=== PATIENT | female | born 1950 | race Caucasian/White ===

== ENCOUNTER → 2017-06-18 08:56 | Outpatient (CLI) | payer MEDICARE, OTHER, SELFPAY ==
--- NOTE | 2017-06-18 08:58 | BI_ITS ---
MAMMOGRAPHY - BILATERAL SCREENING REASON FOR EXAM: Female, 66 years old. Routine annual screening examination. PERTINENT HISTORY: Non-contributory. TECHNIQUE: Digital bilateral breast bita (3D mammographic acquisition) in the CC and MLO projections. 2-D mediolateral oblique (MLO) and craniocaudad (CC) views of both breasts were obtained. CAD: Full Field Digital Mammography with Computer Added Detection was performed. COMPARISON: Comparison is made with prior outside examination dated February 26, 2016. FINDINGS: Breast Composition: The breasts are heterogeneously dense, which may obscure small masses. There are no dominant masses or suspicious calcifications. No other significant abnormalities are identified. There has been no significant change since the prior study. BI/SCREENING MAMM (CAD), BILAT IMPRESSION: Stable bilateral screening mammogram. Yearly follow-up mammogram recommended. (A) ASSESSMENT CATEGORY: BIRADS Category 1: Negative. A letter regarding these results will be sent to the patient by the facility within 30 days. Approximately 10% of breast cancers are not detected by mammography. A normal mammogram should not delay biopsy of a clinically suspicious abnormality. [id number] Electronically Signed: Jonnie Reid MD at 13:39 EDT Tel [phone], Service support ,
== END ==
PROVIDERS: Family Provider Family Medicine; PCP Family Medicine; Visit Provider Nurse Practitioner Women's Health
DX: Z12.31 Encounter for screening mammogram for malignant neoplasm of breast (principal)
CPT/HCPCS: 77063; 77067

== ENCOUNTER → 2018-05-15 07:53 | Outpatient (CLI) | payer MEDICARE, OTHER, SELFPAY ==
[2018-05-12 13:08] VITALS: BMI 21.9
[2018-05-15 10:01] LABS: ALB/GLOB Ratio 1.1 RATIO (0.9-2.4); AST(SGOT) 24 U/L (15-37); Alanine Aminotransfer ALT/SGPT 27 U/L (13-56); Albumin, Serum 3.6 g/dL (3.2-5.0); Alkaline Phosphatase 87 U/L (45-117); Anion Gap 5 (5-15); BUN 14 mg/dL (7-18); BUN/Creat Ratio 21.9 RATIO (10-20); Calcium,Total 8.8 mg/dL (8.5-10.1); Chloride 107 mmol/L (98-107); Cholesterol 186 mg/dL (200); Creatinine, Serum 0.64 mg/dL (0.55-1.02); EST Glomerular Filtration Rate 99 mL/min (>60); Est Glom Filt Rate - Afr Amer 119 mL/min (>60); Globulin 3.4 g/dL (2.2-4.2); Glucose 84 mg/dL (74-106); High Density Lipoprotein 104 mg/dL; Potassium 3.7 mmol/L (3.5-5.1); Sodium Level 144 mmol/L (136-145); Thyroid Stim Hormone (TSH) 1.23 uIU/mL (0.358-3.74); Triglycerides 40 mg/dL; Very Low Density Lipoprotein 8 mg/dL (5-40)
== END ==
PROVIDERS: Family Provider Family Medicine; PCP Family Medicine; Referring Provider Nurse Practitioner Women's Health; Visit Provider Nurse Practitioner Women's Health
DX: Z00.00 Encounter for general adult medical examination without abnormal findings (principal); E78.00 Pure hypercholesterolemia, unspecified; R53.83 Other fatigue
CPT/HCPCS: 36415; 80053; 80061; 84443

== ENCOUNTER → 2018-06-21 09:56 | Outpatient (CLI) | payer MEDICARE, SELFPAY ==
[2018-05-12 13:08] VITALS: BMI 21.9
--- NOTE | 2018-06-21 09:58 | BI_ITS ---
MAMMOGRAPHY - BILATERAL SCREENING REASON FOR EXAM: Female, 67 years old. Routine annual screening examination. PERTINENT HISTORY: Non-contributory. TECHNIQUE: Digital bilateral breast jeff (3D mammographic acquisition) in the CC and MLO projections. 2-D mediolateral oblique (MLO) and craniocaudad (CC) views of both breasts were obtained. CAD: Full Field Digital Mammography with Computer Added Detection was performed. COMPARISON: Comparison is made with prior study dated June 18, 2017. FINDINGS: Breast Composition: The breasts are heterogeneously dense, which may obscure small masses. There are no dominant masses or suspicious calcifications. No other significant abnormalities are identified. There has been no significant change since the prior study. BI/SCREEN MAMM (CAD) W/JEFF BILAT IMPRESSION: Stable bilateral screening mammogram. Yearly follow-up mammogram recommended. (A) ASSESSMENT CATEGORY: BIRADS Category 1: Negative. A letter regarding these results will be sent to the patient by the facility within 30 days. Approximately 10% of breast cancers are not detected by mammography. A normal mammogram should not delay biopsy of a clinically suspicious abnormality. [id number] Electronically Signed: Jonnie Reid, at 11:31 EDT , Service support ,
== END ==
PROVIDERS: Family Provider Family Medicine; PCP Family Medicine; Referring Provider Nurse Practitioner Women's Health; Visit Provider Nurse Practitioner Women's Health
DX: Z12.31 Encounter for screening mammogram for malignant neoplasm of breast (principal)
CPT/HCPCS: 77063; 77067

== ENCOUNTER → 2019-08-01 12:36 | Outpatient (CLI) | payer MEDICARE, OTHER, SELFPAY ==
[2018-05-12 13:08] VITALS: BMI 21.9
--- NOTE | 2019-08-01 12:36 | BI_ITS ---
MAMMOGRAPHY - BILATERAL SCREENING 3-D TOMOSYNTHESIS REASON FOR EXAM: Female, 68 years old. Routine screening PERTINENT HISTORY: FAM HX MAT 1ST COUSIN AGE ? -- GAINED WEIGHT SINCE AST EXAM -- NO SX. TECHNIQUE: 2-D mammograms and 3-D Tomosynthesis of the breast (s) were performed. CAD was performed. COMPARISON: 2019 FINDINGS: The breast composition is heterogeneously dense that can obscure small breast masses. Scattered benign calcifications are seen. No dense spiculated masses or suspicious microcalcifications are identified. No architectural distortion is identified. There is no skin thickening or retraction. There has been no significant change since the prior study. BI/SCREEN MAMM (CAD) W/JEFF BILAT IMPRESSION: No mammographic signs of malignancy. Routine yearly mammograms recommended. ASSESSMENT CATEGORY: BIRADS Category 2: Benign. A letter regarding these results will be sent to the patient by the facility within 30 days. FOLLOW UP RECOMMENDATION: Yearly follow up mammogram recommended. (A) Approximately 10% of breast cancers are not detected by mammography. A normal mammogram should not delay biopsy of a clinically suspicious abnormality. Electronically Signed: Ricki Mckeon MD at 14:04 EDT , Service support ,
== END ==
PROVIDERS: PCP Family Medicine; Referring Provider Nurse Practitioner Women's Health; Visit Provider Nurse Practitioner Women's Health
DX: Z12.31 Encounter for screening mammogram for malignant neoplasm of breast (principal)
CPT/HCPCS: 77063; 77067

== ENCOUNTER 2020-04-12 17:49 | Outpatient (RCR) | payer MEDICARE, OTHER, SELFPAY ==
[2019-08-01 13:24] VITALS: BMI 21.9
[2020-04-12] MEDS: COVID-19 VACC, MRNA(PFIZER)/PF 30 MCG/0.3 ML SYRINGE IM (17:57)
[2020-05-03] MEDS: COVID-19 VACC, MRNA(PFIZER)/PF 30 MCG/0.3 ML SYRINGE IM (17:16)
== END 2020-04-12 23:59 ==
LOC: IMMUN 17:49
PROVIDERS: PCP Family Medicine; Referring Provider Family Medicine; Visit Provider Family Medicine
DX: Z23 Encounter for immunization (principal)
CPT/HCPCS: 0001A; 0002A; 91300

== ENCOUNTER → 2020-08-08 10:39 | Outpatient (CLI) | payer MEDICARE, OTHER, SELFPAY ==
[2019-08-01 13:24] VITALS: BMI 21.9
[2020-08-08 10:10] VITALS: BMI 21.9
--- NOTE | 2020-08-08 10:41 | BI_ITS ---
MAMMOGRAPHY - BILATERAL SCREENING REASON FOR EXAM: Female, 69 years old. Routine annual screening examination. PERTINENT HISTORY: Non-contributory. TECHNIQUE: Digital bilateral breast jeff (3D mammographic acquisition) in the CC and MLO projections. 2-D mediolateral oblique (MLO) and craniocaudad (CC) views of both breasts were obtained. CAD: Full Field Digital Mammography with Computer Added Detection was performed. COMPARISON: Comparison is made with prior examination dated 08/01/2019 and 06/21/2018. FINDINGS: Breast Composition: The breasts are heterogeneously dense, which may obscure small masses. There are no dominant masses or suspicious calcifications. No other significant abnormalities are identified. There has been no significant change since the prior study. BI/SCRN MAMM (CAD)W/JEFF BILAT IMPRESSION: Stable bilateral screening mammogram. Yearly follow-up mammogram recommended. (A) ASSESSMENT CATEGORY: BIRADS Category 1: Negative. A letter regarding these results will be sent to the patient by the facility within 30 days. Approximately 10% of breast cancers are not detected by mammography. A normal mammogram should not delay biopsy of a clinically suspicious abnormality. [id number] Electronically Signed: Jonnie Reid MD at 12:46 EDT , Service support ,
== END ==
PROVIDERS: PCP Family Medicine; Referring Provider Nurse Practitioner Women's Health; Visit Provider Nurse Practitioner Women's Health
DX: Z12.31 Encounter for screening mammogram for malignant neoplasm of breast (principal)
CPT/HCPCS: 77063; 77067

== ENCOUNTER → 2020-12-04 09:48 | Outpatient (CLI) | payer MEDICARE, OTHER, SELFPAY ==
--- NOTE | 2020-12-04 09:55 | BD_ITS ---
STUDY: DUAL ENERGY X-RAY ABSORPTIOMETRY / DXA REASON FOR EXAM: Female, 69 years old. [id number]. The patient is postmenopausal. TECHNIQUE: Bone Mineral Density (BMD) measurements of lumbar spine and bilateral hips were obtained. COMPARISON: None. FINDINGS: Lumbar Spine (L1-L4): g/cm2 (0.953) / T-score (-0.9) / Z-score (1.1) Findings are suggestive of normal bone density with a low fracture risk. Left Femur Total: g/cm2 (0.760) / T-score (-1.5) / Z-score (-0.1) Left Femoral Neck: g/cm2 (0.650) / T-score (-1.8) / Z-score (-0.1) Right Femur Total: g/cm2 (0.829) / T-score (-0.9) / Z-score (0.5) Right Femoral Neck: g/cm2 (0.645) / T-score (-1.8) / Z-score (-0.1) BD/Dexa Bone Density Study IMPRESSION: The patient is considered osteopenic as outlined below according to World Lobo Organization (WHO) criteria with a moderate fracture risk. Reference Information: The T-score is the number of standard deviations above or below the standard which is normal for young adults at their peak bone mineral density. The World Health Organization (WHO) interprets the T-scores as follows: Above -1 Normal bone density Between -1 and -2.5 Osteopenia Equal to / or below -2.5 Osteoporosis As a practical clinical guideline, osteopenia may be graded as follows: Mild -1 through -1.5 Moderate -1.6 through -2.0 Severe -2.1 through -2.4 The Z-score is the number of standard deviations above or below age-matched controls. A Z-score of less than -1.5 would be considered abnormal. References: 1. NIH Osteoporosis and Related Bone Diseases www osteo.org 2. International Society for Clinical Densitometry www iscd.org 3. National Osteoporosis Foundation www nof.org Electronically Signed: Jonnie Reid MD at 13:18 EDT , Service support ,
== END ==
PROVIDERS: PCP Internal Medicine; Referring Provider Internal Medicine; Visit Provider Internal Medicine
DX: Z78.0 Asymptomatic menopausal state (principal)
CPT/HCPCS: 77080

== ENCOUNTER 2021-03-06 09:55 | Outpatient (CLI) | payer MEDICARE, OTHER, SELFPAY ==
--- NOTE | 2021-03-06 09:59 | ECHOD_ITS ---
Reason For Study: Near Syncope Procedure This was a 2D Doppler, Color Flow transthoracic echocardiogram. The study was technically difficult. Exam performed in department. Left Ventricle Normal LV size. Apical false tendon noted. Left ventricular systolic function is normal. The estimated ejection fraction is 60 %. No evidence for diastolic dysfunction. No regional wall motion abnormalities noted. Right Ventricle Normal RV size. Prominent moderator band. Normal systolic function. Atria Normal left atrium. Normal right atrium. No doppler evidence for ASD. Mitral Valve There is no mitral annular calcification. Anterior leaflet diffuse mitral valve thickening. Equivocal mitral valve prolapse. Trivial mitral valve insufficiency. Tricuspid Valve Normal tricuspid valve. Mild tricuspid valve insufficiency. Right ventricular systolic pressure estimated to be 21 mmHg. Aortic Valve Trisinus/trileaflet aortic valve. Normal aortic valve. Pulmonic Valve The pulmonic valve is not well visualized. Trivial pulmonic valve insufficiency. Great Vessels Normal sized aortic root. Pericardium/Pleural No pericardial effusion. MMode/2D Measurements & Calculations LVIDd: 4.0 cm IVSd: 0.78 cm Ao root diam: 3.0 cm LVIDs: 2.6 cm LVPWd: 0.68 cm LA dimension: 2.6 cm FS: 36.0 % LAV(MOD-sp4): 17.0 ml LA A4 area: 10.5 cm2 RA A4 area: 11.7 cm2 Time Measurements MV dec time: 0.25 sec Doppler Measurements & Calculations MV E max rashaad: 57.8 cm/sec Lat Peak E' Rashaad: 10.7 cm/sec Med Peak E' Rashaad: 11.8 cm/sec MV A max rashaad: 78.9 cm/sec E/E' lat: 5.4 E/E' med: 4.9 MV E/A: 0.73 MV V2 max: 86.8 cm/sec MV P1/2t max rashaad: 87.4 cm/sec Ao V2 max: 116.8 cm/sec MV max P.0 mmHg MV P1/2t: 81.9 msec Ao max P.5 mmHg MV V2 mean: 48.9 cm/sec MV dec slope: 312.5 cm/sec2 MV mean P.1 mmHg MVA(P1/2t): 2.7 cm2 MV V2 VTI: 24.8 cm LV V1 max: 83.4 cm/sec PA V2 max: 67.9 cm/sec TR max rashaad: 214.3 cm/sec LV V1 max P.8 mmHg TR max P.4 mmHg ECHO/Echo Complete Interpretation Summary The study was technically difficult. Left ventricular systolic function is normal. The estimated ejection fraction is 60 %. Apical false tendon noted. Prominent moderator band. Anterior leaflet diffuse mitral valve thickening. Equivocal mitral valve prolapse. Trivial mitral valve insufficiency. Mild tricuspid valve insufficiency. Trivial pulmonic valve insufficiency. Right ventricular systolic pressure estimated to be 21 mmHg. No evidence for diastolic dysfunction. Ordering Physician: Brittany Dougherty Referring Physician: Brittany Dougherty Performed By: Nickolas Jay RCS
== END 2021-03-06 23:59 | disposition short-term general hospital (02) ==
LOC: CVS 09:57
PROVIDERS: PCP Internal Medicine; Referring Provider Internal Medicine; Visit Provider Internal Medicine
DX: R00.2 Palpitations (principal); R55 Syncope and collapse
CPT/HCPCS: 93225; 93226; 93306

== ENCOUNTER → 2021-08-13 | Outpatient (CLI) | payer MEDICARE, OTHER, SELFPAY ==
--- NOTE | 2021-08-13 09:11 | BI_ITS ---
MAMMOGRAPHY - BILATERAL SCREENING REASON FOR EXAM: Female, 70 years old. Routine annual screening examination. PERTINENT HISTORY: Non-contributory. TECHNIQUE: Digital bilateral breast jeff (3D mammographic acquisition) in the CC and MLO projections. 2-D mediolateral oblique (MLO) and craniocaudad (CC) views of both breasts were obtained. CAD: Full Field Digital Mammography with Computer Added Detection was performed. COMPARISON: Comparison is made with prior study dated 08/08/2020 and 08/01/2019. FINDINGS: Breast Composition: The breasts are heterogeneously dense, which may obscure small masses. There are no dominant masses or suspicious calcifications. No other significant abnormalities are identified. There has been no significant change since the prior study. BI/SCRN MAMM (CAD)W/JEFF BILAT IMPRESSION: Stable bilateral screening mammogram. Yearly follow-up mammogram recommended. (A) ASSESSMENT CATEGORY: BIRADS Category 1: Negative. A letter regarding these results will be sent to the patient by the facility within 30 days. Approximately 10% of breast cancers are not detected by mammography. A normal mammogram should not delay biopsy of a clinically suspicious abnormality. [id number] Electronically Signed: Jonnie Reid MD at 10:27 EDT ,
== END | disposition home or self-care (01) ==
LOC: OPBI 09:11
PROVIDERS: PCP Internal Medicine; Visit Provider Nurse Practitioner Women's Health
DX: Z12.31 Encounter for screening mammogram for malignant neoplasm of breast (principal)
CPT/HCPCS: 77063; 77067

== ENCOUNTER → 2022-08-18 | Outpatient (CLI) | payer MEDICARE, OTHER, SELFPAY ==
--- NOTE | 2022-08-18 07:59 | BI_ITS ---
MAMMOGRAPHY - BILATERAL SCREENING REASON FOR EXAM: Female, 71 years old. Routine annual screening examination. PERTINENT HISTORY: Non-contributory. TECHNIQUE: Digital bilateral breast jeff (3D mammographic acquisition) in the CC and MLO projections. 2-D mediolateral oblique (MLO) and craniocaudad (CC) views of both breasts were obtained. CAD: Full Field Digital Mammography with Computer Added Detection was performed. COMPARISON: Comparison is made with prior study dated August 13, 2021 and August 08, 2020. FINDINGS: Breast Composition: The breasts are heterogeneously dense, which may obscure small masses. There are no dominant masses or suspicious calcifications. No other significant abnormalities are identified. There has been no significant change since the prior study. BI/SCRN MAMM (CAD)W/JEFF BILAT IMPRESSION: Stable bilateral screening mammogram. Yearly follow-up mammogram recommended. (A) ASSESSMENT CATEGORY: BIRADS Category 1: Negative. A letter regarding these results will be sent to the patient by the facility within 30 days. Approximately 10% of breast cancers are not detected by mammography. A normal mammogram should not delay biopsy of a clinically suspicious abnormality. [id number] Electronically Signed: Jonnie Reid MD at 11:01 EDT ,
== END | disposition home or self-care (01) ==
LOC: OPBI 07:56
PROVIDERS: PCP Internal Medicine; Referring Provider Nurse Practitioner Women's Health; Visit Provider Nurse Practitioner Women's Health
DX: Z12.31 Encounter for screening mammogram for malignant neoplasm of breast (principal)
CPT/HCPCS: 77063; 77067

== ENCOUNTER → 2023-08-24 | Outpatient (CLI) | payer MEDICARE, OTHER, SELFPAY ==
--- NOTE | 2023-08-24 08:21 | BI_ITS ---
MAMMOGRAPHY - BILATERAL SCREENING REASON FOR EXAM: Female, 72 years old. Routine annual screening examination. PERTINENT HISTORY: Non-contributory. TECHNIQUE: Digital bilateral breast jeff (3D mammographic acquisition) in the CC and MLO projections. 2-D mediolateral oblique (MLO) and craniocaudad (CC) views of both breasts were obtained. CAD: Full Field Digital Mammography with Computer Added Detection was performed. COMPARISON: Comparison is made with prior study dated August 18, 2022 and August 13, 2021. FINDINGS: Breast Composition: The breasts are heterogeneously dense, which may obscure small masses. There are no dominant masses or suspicious calcifications. No other significant abnormalities are identified. There has been no significant change since the prior study. BI/SCRN MAMM (CAD)W/JEFF BILAT IMPRESSION: Stable bilateral screening mammogram. Yearly follow-up mammogram recommended. (A) ASSESSMENT CATEGORY: BIRADS Category 1: Negative. A letter regarding these results will be sent to the patient by the facility within 30 days. Approximately 10% of breast cancers are not detected by mammography. A normal mammogram should not delay biopsy of a clinically suspicious abnormality. [id number] Electronically Signed: Jonnie Reid MD at 10:00 EDT ,
== END | disposition home or self-care (01) ==
LOC: OPBI 08:21
PROVIDERS: PCP Internal Medicine; Referring Provider Nurse Practitioner Women's Health; Visit Provider Nurse Practitioner Women's Health
DX: Z12.31 Encounter for screening mammogram for malignant neoplasm of breast (principal)
CPT/HCPCS: 77063; 77067

== ENCOUNTER → 2024-02-12 | Outpatient (CLI) | payer MEDICARE, OTHER, SELFPAY ==
--- NOTE | 2024-02-12 14:53 | VDLE_ITS ---
Reason For Study: RLE Pain RIGHT LEFT GSV is normal. FV is compressible, spontaneous, phasic, CFV is compressible, spontaneous, phasic, competent and demonstrates normal competent and demonstrates normal augmentation. augmentation. FV is compressible, spontaneous, phasic, competent and demonstrates normal augmentation. POP V is compressible, spontaneous, phasic, competent and demonstrates normal augmentation. T/P Trunk is compressible. PTV is compressible. RT PerV is compressible. Procedure This is a venous duplex using B-mode, color flow and spectral Doppler. Exam performed in department. The exam was diagnostic. A preliminary report was called and/or faxed to [id number]. VL/Venous Duplex US, Unilateral Interpretation Summary Deep veins of the right lower extremity are patent and compressible segmentally . There is no evidence of right lower extremity deep vein thrombosis. Valvular competence tommy ears intact within the proximal deep venous system on the right . The right great saphenous vein a ppears patent and compressible segmentally. The left femoral vein is patent and compressible. Ordering Physician: Corey Figueroa Referring Physician: Brittany Dougherty M.D. Performed By: Miguel Almanza RVT
== END | disposition home or self-care (01) ==
LOC: CVS 14:51
PROVIDERS: PCP Internal Medicine; Referring Provider Specialist; Visit Provider Specialist
DX: M79.604 Pain in right leg (principal); M17.11 Unilateral primary osteoarthritis, right knee; S82.091D Other fracture of right patella, subsequent encounter for closed fracture with routine healing
CPT/HCPCS: 93971

== ENCOUNTER → 2025-02-03 | Outpatient (CLI) | payer MEDICARE, OTHER, SELFPAY ==
--- NOTE | 2025-02-03 08:15 | BI_ITS ---
EXAM: SCORN MAMM (CAD) W/JEFF BILAT DATE: 02/03/2025 CLINICAL HISTORY: F, Age 74 y/o , SCREEN FOR BREAST CANCER TECHNIQUE: Procedure Code: [id number] Modality: MG Procedure: SCRN MAMM (CAD)W/JEFF BILAT COMPARISON: Prior exam(s) dated 08/24/2023. FINDINGS: TISSUE DENSITY: The breasts are heterogeneously dense, which may obscure small masses. Bilateral Breast Mammographic Findings: No suspicious masses, suspicious cluster of microcalcifications, architectural distortion or secondary sign of malignancy is identified in either breast. Benign round calcifications are seen in both breasts. BI/SCRN MAMM (CAD)W/JEFF BILAT IMPRESSION: Benign screening mammogram OVERALL FINAL ASSESSMENT BI-RADS 2: BENIGN RECOMMENDATION: Routine annual follow-up in 1 Year Additional Recommendation none A letter with findings and recommendations will be mailed to the patient. Reading Location: [id number]
--- OUTSIDE RECORDS SUMMARY | 2025-02-03 08:19 | XMS RPT_ITS | CCD ---
Author Organization [facility] ion Partnership [facility] Care Team Providers Care Machine Inspector Name Role Phone Carlos LUNDY, Rg Unavailable Brittany Dougherty DO Unavailable Dr. Robert Carrizales Unavailable Malou LUNDY, Mary Ann Jimenez Unavailable Katelyn Rand Unavailable Javier Rizo MD Unavailable [facility] Unavailable Unavailable Unavailable Unavailable [facility] OVEN TENDER, Macey Unavailable Unavailable Dr. Brittany Dougherty Primary Care Provider [phone] Dr. Brittany Dougherty Referring Provider Irena CHAMBERLAIN, ARMANDO Presley Attending Provider Brittany Dougherty DO Unavailable Unavailable [facility] Un[facility] Brittany Dougherty Primary Care Unavailable Brittany Dougherty Referring Unavailable Sakina Osborn NP Attending Unavailable Brittany Dougherty Primary Care Unavailable Corey Figueroa Attending Unavailable Corey Figueroa Referring Unavailable Brittany Dougherty Primary Care Unavailable Sakina Osborn NP Attending Unavailable Sakina Osborn NP Referring Unavailable Allergies Allergy Classification Reported Allergen(s) Allergy Type Date of Onset Reaction(s) Facility (7 sources) Penicillin G; Translations: [Penicillin G Procaine *PENICILLINS*] Drug Allergy [facility]; [facility] Work Phone: Medications Current Medications Medication Drug Class(es) Dates Sig (Normalized) Sig (Original) clobetasol propionate 0.5 mg/ml topical cream (16 sources) Corticosteroid Start: 04-15-2022 End: 04-15-2022 Clobetasol Active 1 APPLIC TOPICAL .COMPLEX 15 April 15, 2022 2:47pm 1 applic TOPICAL apply thin layer as directed daily X 1 week with flares; massage in to cover area Start: 08-01-2019 End: 04-15-2022 Clobetasol Discontinued 1 AP PLIC TOPICAL .COMPLEX 15 August 08, 2020 10:16am April 15, 2022 1:27pm 1 applic TOPICAL apply thin layer as directed bid X 2 weeks then daily X 2 weeks; apply thin layer; massage in to cover area Start: 05-12-2018 End: 08-01-2019 Clobetasol Discontinued 1 AP PLIC TOPICAL DAILY May 12, 2018 1:26pm August 01, 2019 1:19pm Start: 08-27-2017 End: 05-12-2018 Clobetasol Discontinued 1 AP PLIC TOPICAL TWICE A DAY August 27, 2017 12:00am May 12, 2018 1:27pm Start: 03-02-2017 End: 03-03-2017 Clobetasol Discontinued 1 AP PLIC TOPICAL .COMPLEX 15 March 02, 2017 1:00am March 03, 2017 11:32am 1 applic TOPICAL daily X 3 weeks; apply thin layer; massage gently into affected area IC clobetasol 0. 05% cream Active estradiol 0.1 mg/ml vaginal cream (15 sources) Estrogen Start: 05-12-2018 End: 08-01-2019 Estradiol (Estrace) 0.01 % (0.1 mg/gram) cream Active 0 VAGINAL .COMPLEX 42.5 August 01, 2019 1:24pm pea sized amount VAGINAL twice a week; Start: 07-23-2017 End: 05-12-2018 Estradiol (Estrace) 0.01 % ( 0.1 mg/gram) cream Discontinued 0 VAGINAL .COMPLEX 42.5 July 23, 2017 12:00am May 12, 2018 1:27pm pea sized amount VAGINAL every other day X 4 weeks then twice a week; Start: 03-02-2017 End: 07-23-2017 Estradiol (Yuvafem) 10 mcg t ablet Discontinued 10 MCG VAGINAL .COMPLEX 36 March 02, 2017 1:00am July 23, 2017 9:41am 10 mcg VAGINAL 3 nights per week End: 06-03-2010 take 1 tablet by mouth every other day ESTRADIOL, 0.5MG (Oral Tablet) 1 qod for 0 days Refills: 0 Ordered: 03-Jun-2010 PRATIMA Perez LPN End : 03-Jun-2010 Inactive SUMAtriptan 50 mg oral tablet (20 sources) Serotonin-1b and Serotonin-1d Receptor Agonist Start: 09-18-2022 take 1 tablet by mouth every two hours Imitrex 50 mg oral tablet uad one at onset and may repeat in 2 hours if not gone (50 mg) Start : 18-Sep-2022 Active Comments: No more than 2 in 24 hours Start: 09-18-2022 take 1 tablet by carlos th every two hours Imitrex 50 mg oral tablet uad Tablet one at onset and may repeat in 2 hours if not gone for 0 days Quantity: 12 {Tablet} Refills: 1 Ordered: 18-Sep-2022 Brittany Dougherty DO, DO, Kathleen Start : 18-Sep-2022 Active Comments: Mail order. no more than 2 in 24 hours Start: 09-18-2022 take 1 tablet by carlos th every two hours Imitrex 50 mg oral tablet uad Tablet one at onset and may repeat in 2 hours if not gone for 0 days Quantity: 12 {Tablet} Refills: 5 Ordered: 18-Sep-2022 Brittany Dougherty DO, DO, Kathleen Start : 18-Sep-2022 Active Comments: No more than 2 in 24 hours Start: 07-29-2022 take 1 tablet by carlos th every two hours Imitrex 50 mg oral tablet uad one at onset and may repeat in 2 hours if not gone (50 mg) Start : 29-Jul-2022 Active Comments: No more than 2 in 24 hours Start: 12-17-2020 take 1 tablet by carlos th every two hours Imitrex 50 MG Oral Tablet uad Tablet one at onset and may repeat in 2 hours if not gone for 0 days Quantity: 12 {Tablet} Refills: 1 Ordered: 17-Dec-2020 Viktoria Coello CMA Start : 17-Dec-2020 Active Comments: Mail order. no more than 2 in 24 hours Start: 03-02-2017 take 1 tablet by mouth once Hebert matriptan Succinate (Imitrex) 50 mg tablet Active 50 MG PO ONCE March 02, 2017 1:00am Comment on above: Mail order. no more than 2 in 24 hours No more than 2 in 24 hours Completed/Discontinued Medications Medication Drug Class(es) Dates Sig (Normalized) Sig (Original) acetaminophen 325 mg / HYDROcodone bitartrate 5 mg oral tablet (9 sources) Opioid Agonist Start: 02-05-2015 End: 03-02-2017 take 1 tablet by mouth every four hours as needed Hydrocodone-Acetami nophen Discontinued 1 - 2 TABLET PO EVERY 4 HOURS NEEDED February 05, 2015 1:00am March 02, 2017 10:56am Start: 09-14-2012 End: 10-11-2013 take 1 tablet by mouth every six hours as needed VICODIN, 5-300MG (Oral Tablet) 1 Tablet every 6 hours prn for 0 days Quantity: 20 {Tablet} Refills: 0 Ordered: 11-Oct-2013 PRATIMA Perez LPN Start : 14-Sep-2012 End : 11-Oct-2013 Inactive Comments: twenty Comment on above: twenty amoxicillin 875 mg / clavulanate 125 mg oral tablet (7 sources) Penicillin-class Antibacterial Start: 05-24-19 16 End: 06-07-19 16 take 1 tablet by mouth twice daily AUGMENTIN, 875-125MG (Oral Tablet) 1 Tablet Tablet bid for 14 days Quantity: 28 {Tablet} Refills: 0 Ordered: 24-May-2015 Brittany Dougherty DO, DO, Kathleen Start : 24-May-2015 End : 07-Jun-2015 Inactive amylase 76134 unt / lipase 6000 unt / protease 25832 unt delayed release oral capsule (2 sources) Start: 09-05-19 23 take 1 capsule by mouth before mealtime Creon 6,000-19,000 -30,000 unit oral capsule,delayed release (enteric coated) 1 (one) capsule before meal and snacks for 0 days Quantity: 90 {Capsule} Refills: 0 Ordered: 04-Sep-2022 Brittany Dougherty DO, DO, Kathleen Start : 04-Sep-2022 Active azelastine hydrochloride 0.137 mg/actuat metered dose nasal spray (7 sources) Histamine-1 Receptor Antagonist Start: 09-15-19 13 End: 03-08-19 14 ASTELIN, 137MCG/SPRAY (Nasal Solution) 1 Solution QD for 0 days Quantity: 1 {Solution} Refills: 3 Ordered: 08-Mar-2013 Fawn Gandhi RN Start : 14-Sep-2012 End : 08-Mar-2013 Inactive azithromycin 500 mg oral tablet (7 sources) Macrolide Antimicrobial Start: 03-21-19 16 End: 03-26-19 16 take 1 mg by mouth once daily AZITHROMYCIN, 500MG (Oral Tablet) 1 (one) Tablet UAD for 5 days Quantity: 5 {Tablet} Refills: 0 Ordered: 21-Mar-2015 Rg Gonzalez MD Start : 21-Mar-2015 End : 26-Mar-2015 Inactive Comments: ZPAC for 5 [id number] mg day 1, then 250 mg Q24 hours X 4 days Comment on above: ZPAC for 5 [id number] m g day 1, then 250 mg Q24 hours X 4 days bifidobacterium infantis 4 mg oral capsule (7 sources) Start: 11-18-19 12 End: 07-03-19 13 take 1 capsule by mouth once daily ALIGN, 4MG (Oral Capsule) 1 Capsule daily for 0 days Quantity: 30 {Capsule} Refills: 0 Ordered: 02-Jul-2012 PRATIMA Perez LPN Start : 18-Nov-2011 End : 02-Jul-2012 Inactive c-estriol 1mg/ml twice per wk (4 sources) c-estriol 1mg/ml twice per wk Active Calcium (4 sources) Phosphate Binder, Calcium End: 08-25-19 07 CALCIUM, 500MG (Oral Tablet) for 0 days Refills: 0 Ordered: 11-Aug-2007 Mary Bruno End : 24-Aug-2006 Inactive calcium carbonate 1500 mg oral tablet (9 sources) Caltrate 600 1500 (600 Ca) MG Oral Tablet (1500 (600 Ca) MG) Active End: 08-24-2006 CALCIUM, 500MG (Oral Tablet) for 0 days Refills: 0 Ordered: 11-Aug-2007 Mary Bruno End : 24-Aug-2006 Inactive calcium carbonate 1250 mg / cholecalciferol 100 unt / vitamin k 0.04 mg chewable tablet (7 sources) Vitamin D End: 08-24-2006 VIACTIV, 500-100-40 (Oral Tablet Chewable) for 0 days Refills: 0 Ordered: 11-Aug-2007 Mary Bruno End : 24-Aug-2006 Inactive cholecalciferol 0.05 mg oral tablet (7 sources) Vitamin D take 1 tablet by mouth once daily D3 50 MCG (1999 UT) Oral Tablet 1 daily (50 MCG (1999 UT)) Active ciprofloxacin 3 mg/ml ophthalmic solution (7 sources) Quinolone Antimicrobial Start: 03-17-2008 End: 07-12-2008 CILOXAN, 0.3% (Ophthalmic Solution) 2 (two) Solution Twice daily for 0 days Quantity: 10 {Solution} Refills: 0 Ordered: 17-Mar-2008 Betty Lange Start : 17-Mar-2008 End : 12-Jul-2008 Discontinued citalopram 10 mg oral tablet (7 sources) Serotonin Reuptake Inhibitor Start: 2012 End: 2012 take 1 tablet by mouth once daily CELEXA, 10MG (Oral Tablet) 1 Tablet qd for 0 days Quantity: 30 {Tablet} Refills: 6 Ordered: 09-Dec-2012 Mary Ann Westfall MD Start : 09-Dec-2012 End : 09-Dec-2012 Inactive desloratadine 5 mg disintegrating oral tablet (7 sources) Histamine-1 Receptor Antagonist Start: 05-22-2015 End: 10-31-2020 take 1 tablet by mouth once daily Desloratadine 5 MG Oral Tablet Disintegrating 1 (one) Tablet Disperse daily for 30 days Quantity: 30 {Tablet} Refills: 2 Ordered: 31-Oct-2020 Macey Vargas CMA Start : 22-May-2015 End : 31-Oct-2020 Inactive esomeprazole 40 mg delayed release oral capsule (7 sources) Proton Pump Inhibitor End: 08-24-2006 take 1 capsule by mouth once daily NEXIUM, 40MG (Oral Capsule Delayed Release) 1 QD for 0 days Refills: 0 Ordered: 11-Aug-2007 Mary Bruno End : 24-Aug-2006 Inactive estrogens, conjugated (nursing home) 0.625 mg/ml vaginal cream (7 sources) Estrogen Start: 05-21-2012 End: 02-13-2015 PREMARIN, 0.625MG/GM (Vaginal Cream) 1 Cream twice a week for 0 days Quantity: 1 {Cream} Refills: 2 Ordered: 13-Feb-2015 Fawn Gandhi RN Start : 21-May-2012 End : 13-Feb-2015 Inactive fluconazole 150 mg oral tablet (7 sources) Azole Antifungal End: 08-07-2008 DIFLUCAN, 150MG (Oral Tablet) 1 Tablet today for 0 days Quantity: 2 {Tablet} Refills: 0 Ordered: 20-Jul-2008 PRATIMA Perez LPN End : 07-Aug-2008 Inactive Comments: june repeat times 1 if needed Comment on above: june repeat times 1 i f needed fluocinolone acetonide 0.25 mg/ml topical cream (2 sources) Corticosteroid Start: 03-03-2017 End: 03-31-2017 Fluocinolone (Synalar) 0.025 % cream Discontinued 1 APPLIC TOPICAL TWICE A DAY March 03, 2017 1:00am March 31, 2017 1:08am FLUoxetine 10 mg oral capsule (7 sources) Serotonin Reuptake Inhibitor Start: 03-08-2013 End: 10-11-2013 take 1 capsule by mouth once daily FLUOXETINE HCL, 10MG (Oral Capsule) 1 (one) Capsule Capsule daily for 0 days Quantity: 30 {Capsule} Refills: 2 Ordered: 11-Oct-2013 PRATIMA Perez LPN Start : 08-Mar-2013 End : 11-Oct-2013 Inactive fluticasone propionate 0.05 mg/actuat metered dose nasal spray (14 sources) Corticosteroid Start: 04-04-2015 End: 04-14-2015 take 1 spray(s) nasal route once daily FLONASE ALLERGY RELIEF, 50MCG/ACT (Nasal Suspension) 1 (one) Suspension daily for 10 days Quantity: 1 {Bottle} Refills: 0 Ordered: 04-Apr-2015 gR Gonzalez MD Start : 04-Apr-2015 End : 14-Apr-2015 Inactive Comments: 1 spray in each nostril once daily. Start: 11-18-2011 End: 07-02-2012 take 1 spray(s) nasal route once daily FLONASE, 50MCG/ACT (Nasal Suspension) 1 Suspension spray each nostril daily for 0 days Quantity: 1 {Suspension} Refills: 2 Ordered: 02-Jul-2012 PRATIMA Perez LPN Start : 18-Nov-2011 End : 02-Jul-2012 Inactive Comment on above: 1 spray in each nost ril once daily. gabapentin 100 mg oral capsule (20 sources) Anti-epileptic Agent Start: 05-22-2015 End: 06-21-2015 NEURONTIN, 100MG (Oral Capsule) 1 (one) Capsule Capsule UAD for 30 days Quantity: 84 {Capsule} Refills: 0 Ordered: 22-May-2015 Shirley Villagran RN Start : 22-May-2015 End : 21-Jun-2015 Inactive Comments: 300 mg BID for 1 [id number] mg qd for 1 [id number] mg Qd for [id number] mg Qd for 1 week then stop. Start: 05-02-2015 End: 06-01-2015 take 1 capsule by mouth three times daily NEURONTIN, 300MG (Oral Capsule) 1 (one) Capsule three times daily for 30 days Quantity: 90 {Capsule} Refills: 0 Ordered: 22-May-2015 Shirley Villagran RN Start : 02-May-2015 End : 01-Jun-2015 Inactive Start: 08-01-2011 End: 11-18-2011 take 1 capsule by mouth three times daily GABAPENTIN, 300MG (Oral Capsule) 1 Capsule tid pain for 0 days Quantity: 30 {Capsule} Refills: 0 Ordered: 18-Nov-2011 Lisa Villegas LPN Start : 01-Aug-2011 End : 18-Nov-2011 Inactive Comments: IF LYRICA NOT COVERED BY INSURANCE PLEASE FILL. PT INSEVERE PAIN CAN NOT WAIT FOR PRIOR AUTHORIATION Comment on above: IF LYRICA NOT COVERE D BY INSURANCE PLEASE FILL. PT INSEVERE PAIN CAN NOT WAIT FOR PRIOR AUTHORIATION 300 mg BID for 1 wee k300 mg qd for 1 cstu644 mg Qd for 1aymr393 mg Qd for 1 week then stop. L.Acidoph, Paracasei,B. Lactis (2 sources) Start: 02-06-20 15 End: 03-02-19 18 take 1 tablet by mouth once daily L.Acidoph, Paracasei,B. Lactis Discontinued 1 TABLET PO DAILY February 05, 2015 1:00am March 02, 2017 10:56am levocetirizine dihydrochloride 5 mg oral tablet (7 sources) Histamine-1 Receptor Antagonist Start: 12-09-19 09 End: 06-04-19 11 take 1 tablet by mouth once daily XYZAL, 5MG (Oral Tablet) Tablet QD for 0 days Quantity: 20 {Tablet} Refills: 0 Ordered: 03-Jun-2010 PRATIMA Perez LPN Start : 08-Dec-2008 End : 03-Jun-2010 Inactive levoFLOXacin 500 mg oral tablet (7 sources) Quinolone Antimicrobial Start: 03-19-19 16 End: 04-04-19 16 take 1 tablet by mouth once daily LEVAQUIN, 500MG (Oral Tablet) 1 Tablet daily for 0 days Quantity: 10 {Tablet} Refills: 0 Ordered: 04-Apr-2015 Fawn Gandhi RN Start : 19-Mar-2015 End : 04-Apr-2015 Inactive LINZESS, 290 MCG (LINACLOTIDE) CAPSULES, 290 MCGMCG (Oral Capsule) (Free Text) (4 sources) Start: 05-25-19 13 End: 02-13-19 16 LINZESS, 290 MCG (LINACLOTIDE) CAPSULES, 290 MCGMCG (Oral Capsule) (Free Text) 1 Capsule qd for 30 days Quantity: 30 {Capsule} Refills: 3 Ordered: 13-Feb-2015 Fawn Gandhi RN Start : 24-May-2012 End : 13-Feb-2015 Inactive Comments: Lot # [id number] #60 capsules given 05-24-12 Comment on above: Lot # [id number] 2012 #60 capsules given 05-24-12 loratadine 10 mg oral tablet (14 sources) Start: 06-04-19 11 End: 07-04-19 11 take 1 tablet by mouth once daily LORATADINE, 10MG (Oral Tablet) 1 Tablet daily for 30 days Refills: 0 Ordered: 04-Jul-2010 Mary Ann Westfall MD Start : 03-Jun-2010 End : 03-Jul-2010 Inactive Start: 07-12-2008 End: 10-02-2008 CLARITIN, 10MG (Oral Tablet) 1 Tablet for 0 days Refills: 0 Ordered: 12-Jul-2008 Mary Bruno Start : 12-Jul-2008 End : 02-Oct-2008 Inactive metaxalone 800 mg oral tablet (7 sources) Start: 11-22-2007 End: 07-12-2008 take 1 tablet by mouth twice daily as needed SKELAXIN, 800MG (Oral Tablet) Tablet bid prn for 0 days Quantity: 30 {Tablet} Refills: 1 Ordered: 22-Nov-2007 Betty Lange Start : 22-Nov-2007 End : 12-Jul-2008 Discontinued Multivitamin preparation (7 sources) End: 08-24-2006 MULTIVITAMIN (Oral Liquid) for 0 days Refills: 0 Ordered: 11-Aug-2007 Mary Bruno End : 24-Aug-2006 Discontinued naproxen sodium 220 mg oral capsule (7 sources) Nonsteroidal Anti-inflammatory Drug Start: 03-21-2015 End: 03-31-2015 take 1 capsule by mouth every twelve hours NAPROXEN SODIUM, 220MG (Oral Capsule) 1 (one) Capsule every twelve hours, as needed for 10 days Quantity: 20 {Capsule} Refills: 0 Ordered: 04-Apr-2015 Rg Gonzalez MD Start : 21-Mar-2015 End : 31-Mar-2015 Inactive Comments: Medication taken as needed. Comment on above: Medication taken as needed. omeprazole 20 mg delayed release oral capsule (7 sources) Proton Pump Inhibitor Start: 03-30-2012 End: 07-02-2012 OMEPRAZOLE, 20MG (Oral Capsule Delayed Release) [address] daily for 0 days Quantity: 30 {Capsule_DR} Refills: 0 Ordered: 02-Jul-2012 PRATIMA Perez LPN Start : 30-Mar-2012 End : 02-Jul-2012 Inactive polyethylene glycol 3350 50455 mg powder for oral solution (7 sources) Osmotic Laxative Start: 04-04-2015 End: 04-11-2015 take 1 dose by mouth once daily MIRALAX (Oral Packet) 1 (one) Packet daily for 7 days Quantity: 7 {Packet} Refills: 0 Ordered: 11-Apr-2015 Rg Gonzalez MD Start : 04-Apr-2015 End : 11-Apr-2015 Inactive microencapsulated potassium chloride 20 meq extended release oral tablet (7 sources) Start: 04-06-2007 End: 04-21-2007 take 1 tablet by mouth once daily K-DUR, 20MEQ (Oral Tablet Extended Release) Tablet ER QD for 0 days Quantity: 30 {Tablet_ER} Refills: 6 Ordered: 06-Apr-2007 Mary Bruno Start : 06-Apr-2007 End : 21-Apr-2007 Discontinued predniSONE 20 mg oral tablet (7 sources) Start: 08-01-2011 End: 11-18-2011 take 1 tablet by mouth once daily PREDNISONE, 20MG (Oral Tablet) 1 Tablet daily for 0 days Quantity: 7 {Tablet} Refills: 0 Ordered: 18-Nov-2011 Lisa Villegas LPN Start : 01-Aug-2011 End : 18-Nov-2011 Inactive pregabalin 75 mg oral capsule (7 sources) Start: 08-01-2011 End: 11-18-2011 take 1 capsule by mouth twice daily LYRICA, 75MG (Oral Capsule) 1 Capsule bid for 0 days Quantity: 20 {Capsule} Refills: 0 Ordered: 18-Nov-2011 Bakari DELA CRUZ Lisa Start : 01-Aug-2011 End : 18-Nov-2011 Inactive raNITIdine 150 mg oral tablet (7 sources) Histamine-2 Receptor Antagonist Start: 12-08-2008 End: 06-03-2010 take 1 tablet by mouth twice daily ZANTAC 150 MAXIMUM STRENGTH, 150MG (Oral Tablet) Tablet BID for 0 days Quantity: 30 {Tablet} Refills: 0 Ordered: 03-Jun-2010 PRATIMA Perez LPN Start : 08-Dec-2008 End : 03-Jun-2010 Inactive sulfamethoxazole 800 mg / trimethoprim 160 mg oral tablet (7 sources) Dihydrofolate Reductase Inhibitor Antibacterial, Sulfonamide Antimicrobial Start: 05-24-2015 End: 10-31-2020 take 1 tablet by mouth twice daily Bactrim DS 800-160 MG Oral Tablet 1 (one) Tablet bid for 0 days Quantity: 16 {Tablet} Refills: 0 Ordered: 31-Oct-2020 Macey Vargas CMA Start : 24-May-2015 End : 31-Oct-2020 Inactive tegaserod 6 mg oral tablet (7 sources) Serotonin-4 Receptor Antagonist Start: 02-19-2006 End: 08-24-2006 take 1 tablet by mouth twice daily ZELNORM, 6MG (Oral Tablet) 1 Tablet BID for 0 days Quantity: 60 {Tablet} Refills: 5 Ordered: 19-Feb-2006 Mary Bruno Start : 19-Feb-2006 End : 24-Aug-2006 Discontinued terbinafine 250 mg oral tablet (7 sources) Allylamine Antifungal Start: 10-11-2013 End: 02-13-2015 take 1 tablet by mouth once daily LAMISIL, 250MG (Oral Tablet) 1 (one) Tablet daily for 0 days Quantity: 30 {Tablet} Refills: 2 Ordered: 13-Feb-2015 Fawn Gandhi RN Start : 11-Oct-2013 End : 13-Feb-2015 Inactive traZODone hydrochloride 50 mg oral tablet (7 sources) Serotonin Reuptake Inhibitor Start: 08-24-2006 End: 04-06-2007 take 1 tablet by mouth once daily at bedtime TRAZODONE HCL, 50MG (Oral Tablet) Tablet QHS / HS for 0 days Quantity: 30 {Tablet} Refills: 7 Ordered: 24-Aug-2006 Damion Mary Start : 24-Aug-2006 End : 06-Apr-2007 Inactive valACYclovir 1000 mg oral tablet (7 sources) Herpesvirus Nucleoside Analog DNA Polymerase Inhibitor, Herpes Simplex Virus Nucleoside Analog DNA Polymerase Inhibitor, Herpes Zoster Virus Nucleoside Analog DNA Polymerase Inhibitor Start: 08-01-2011 End: 11-18-2011 VALTREX, 1GM (Oral Tablet) 1 Tablet tid for 7 days for 0 days Quantity: 21 {Tablet} Refills: 0 Ordered: 18-Nov-2011 Lisa Villegas LPN Start : 01-Aug-2011 End : 18-Nov-2011 Inactive 24 hr venlafaxine 75 mg extended release oral capsule (20 sources) Serotonin and Norepinephrine Reuptake Inhibitor Start: 05-18-2014 End: 02-13-2015 take 1 capsule by mouth every twenty-four hours, then take 1 capsule by mouth once daily EFFEXOR XR, 75MG (Oral Capsule Extended Release 24 Hour) 1 (one) Capsule ER 24HR Capsule ER 24HR daily for 0 days Quantity: 7 {Capsule} Refills: 0 Ordered: 13-Feb-2015 Fawn Gandhi RN Start : 18-May-2014 End : 13-Feb-2015 Inactive Start: 04-12-2013 End: 08-18-2013 take 1 capsule by mouth every twenty-four hours, then take 1 capsule by mouth once daily EFFEXOR XR, 37.5MG (Oral Capsule Extended Release 24 Hour) 1 (one) Capsule ER 24HR Capsule ER 24HR daily for 0 days Quantity: 14 {Capsule} Refills: 0 Ordered: 18-Aug-2013 PRATIMA Perez LPN Start : 12-Apr-2013 End : 18-Aug-2013 Inactive Comment on above: Mail order. 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 prilos ec help. also was on prozac help most. effexor better still little pt think in bowel,. Administrative/social admission (10 sources) Counseling procedure with explicit context; Translations: [Vaccine counseling] 12-17-2020 Episodic Allergic reactions (13 sources) Allergic reaction to drug; Translations: [Allergic drug reaction] 12-17-2020 Episodic Comment on above: using otc meds Anxiety disorders (20 sources) Acute stress disorder; Translations: [Stress reaction] Resolved: 1 10-31-2020 Chronic Comment on above: stable Blindness and vision defects (19 sources) Eye / vision finding; Translations: [Visual changes] 12-17-2020 Episodic Cardiac dysrhythmias (20 sources) Palpitations; Translations: [Palpitations] Resolved: 4 10-11-2013 Episodic Comment on above: having more. will do holter labs. echo 2007. better this week want to hold off and see how does next fw weeks because going on vacation. if last more 10 min racing heart or sob or chest pain or syncoe then ER Conditions associated with dizziness or vertigo (14 sources) Dizziness; Translations: [Dizziness] Resolved: 9 08-16-2008 Episodic Fluid and electrolyte disorders (20 sources) Hypokalemia; Translations: [Hypokalemia] Resolved: 4 10-11-2013 Episodic Headache; including migraine (20 sources) Migraine; Translations: [Migraine] 12-17-2020 Chronic Comment on above: Patient denies havin g any more episodes of headache. stable and use imitr ec prn. when weather changes can go through 7 in a week then weeks with nothing. wants to try mg and vit b complex. butterbur and talk bout it 100 bid and could bother liver. would watch if take Headache; including migraine (7 sources) Headache Episodic Heart valve disorders (20 sources) Mitral valve prolapse; Translations: [Mitral valve prolapse] 12-17-2020 Chronic Comment on above: notices fluttering w ith stress Immunizations and screening for infectious disease (20 sources) Patient encounter status; Translations: [Encounter for hepatitis C virus screening test for high risk patient] 12-17-2020 Episodic Comment on above: done 07/30 Inflammation; infection of eye (except that caused by tuberculosis or sexually transmitteddisease) (10 sources) Serous conjunctivitis; Translations: [Serous conjunctivitis, unspecified laterality] Resolved: 9 12-29-2014 Episodic Malaise and fatigue (13 sources) Asthenia; Translations: [Weakness] Resolved: 9 01-02-2015 Episodic Comment on above: related to above? an xiety doubt but check ddimer for PE Menopausal disorders (20 sources) Menopausal syndrome; Translations: [Menopause syndrome] Resolved: 4 12-29-2014 Chronic Miscellaneous mental health disorders (20 sources) Psychosexual dysfunction, unspecified; Translations: [Sexual dysfunction] Resolved: 9 12-17-2020 Chronic Comment on above: doing better iwth pr emarin cream twice a week l alot of stress--maida g to go better.not think need antianxiety med will try bite guard and muscle relaxant. Miscellaneous mental health disorders (20 sources) Abnormal sexual function Episodi c Mycoses (16 sources) Onychomycosis of toenails; Translations: [Onychomycosis of toenail] Resolved: 1 10-31-2020 Episodic Comment on above: lamisil 250 mg 1 thu(2013 helped her, but stopped it because she was worried about side effects)Tried and failed OTCPodiatry Nonspecific chest pain (20 sources) Chest pain; Translations: [Other chest pain] 12-17-2020 Episodic Comment on above: Atypical chest pain likely secondary to pneumonia. Patient was advised to get a stress test if She has anymore episodes of chest pain.Will do lipid panel, vitamin B-12, TSH.Patient was complaining of central chest pain in the ED when she presented with pneumonia. Pain was also was radiating to the left arm. Denies any radiation to the neck. Denies nausea, vomiting, shortness of breath. Denies having any chest pain on exertion. Denies shortness of breath on exertion. Patient walks on a treadmill 20-40 minutes every day and denies having any chest pain or shortness of breath. Lipid panel in 2012 revealed LDL of 76. does not have diabetes, hypertension, hyperlipidemia. Denies having any more episodes of chest pain after that one episode in the ED. Nutritional deficiencies (14 sources) Vitamin D deficiency; Translations: [Vitamin D deficiency] 12-17-2020 Chronic Other and unspecified benign neoplasm (20 sources) Polyp of colon; Translations: [Colon polyp] 12-17-2020 Episodic Comment on above: Colonoscopy in April 2019revealed and no polyp this time so repeat in 10yr. Other bone disease and musculoskeletal deformities (14 sources) Osteopenia; Translations: [Osteopenia] 12-17-2020 Episodic Comment on above: pt going to do vit D and ca++ and wt bearing exercise Other circulatory disease (20 sources) Orthostatic hypotension Resolved: 4 10-11-2013 Episodic Other ear and sense organ disorders (20 sources) Tinnitus; Translations: [Tinnitus] Resolved: 4 10-11-2013 Episodic Comment on above: new to ent Other eye disorders (10 sources) Pain around eye; Translations: [Pain around eye, unspecified laterality] Resolved: 3 01-18-2015 Episodic Other eye disorders (4 sources) Pain in or around eye Episodic Other gastrointestinal disorders (20 sources) Irritable bowel syndrome; Translations: [Irritable bowel syndrome] 12-17-2020 Chronic Comment on above: stable Other gastrointestinal disorders (20 sources) Chronic idiopathic constipation; Translations: [Chronic idiopathic constipation] 02-20-2021 Chronic Comment on above: Now improved with se nna.Squatty pottyPrune juicecolonoscopy april 2012:polyp, repeat in 5 years Other gastrointestinal disorders (4 sources) Chronic idiopathic constipation; Translations: [Chronic idiopathic constipation] 12-17-2020 Episodic Comment on above: Now improved with se nna.Squatty pottyPrune juicecolonoscopy april 2012:polyp, repeat in 5 years Other gastrointestinal disorders (4 sources) Diarrhea; Translations: [Diarrhea] 09-04-2022 Episodic Other gastrointestinal disorders (4 sources) Disorder of gastrointestinal tract; Translations: [Gas bloat syndrome] 09-04-2022 Episodic Other lower respiratory disease (16 sources) Radiologic increased density of lung; Translations: [Lung density on x-ray] 12-17-2020 Episodic Comment on above: CXR revealed: Persis tent right middle lobe density. Question infiltrate. ([id number] since January 2015 when she was treated with levaquin for PNA.Ct scan chest with IV contrast:03/21/15:ill defined nodular ground glass opacities in LLL.repeat CXR to check for resolution of groud glass opacities.Pt is going to think about it because of the risk of radiation.Counselled her we need to repeat it because if it persists there is ?malignancy Other lower respiratory disease (13 sources) Rib pain; Translations: [Rib pain on right side] Resolved: 1 10-31-2020 Episodic Comment on above: From shingles now im proved, continue neurontin, follow up in 1 month to taper Other non-traumatic joint disorders (20 sources) Shoulder pain; Translations: [Shoulder pain] Resolved: 3 07-02-2012 Episodic Other screening for suspected conditions (not mental disorders or infectious disease) (1 source) Encounter for screening mammogram for malignant neoplasm of breast; Translations: [Encounter for screening mammogram for malignant neoplasm of breast] Onset: 5 Episodic Other skin disorders (3 sources) Lichen sclerosus et atrophicus; Translations: [Lichen sclerosus et atrophicus] Chronic Other skin disorders (20 sources) Eruption; Translations: [Rash] Resolved: 1 07-02-2012 Episodic Other upper respiratory disease (20 sources) Allergic rhinitis; Translations: [Allergic rhinitis] 12-17-2020 Chronic Comment on above: Continue desloratidi neIs not using flonasenasal congestion with clear nasal discharge, sinus pressure improved when she was taking desloratidine. Other upper respiratory disease (8 sources) Allergic rhinitis due to other allergen Chronic Other upper respiratory infections (20 sources) Acute pansinusitis; Translations: [Acute pansinusitis, recurrence not specified] 12-17-2020 Episodic Comment on above: Augmentin BID 14 day s. Because of the side effects of antibiotics,use probiotics or lactobacillus acidophillus to keep the good bacteria in the gut.Increase the amount of yogurt with active cultures.Use warm water with salt gargles for sore throat.Honey lemon jose armando turmeric tea.Drink lots of fluidsSteam inhalation.Do not use decongestants with high blood pressure or heart disease.Avoid pasta , potatoes, white flour and sweets as infection feeds on it.Lots of rest.If you have worsening fevers, shortness of breath, chest pain, cough, sinus pain, sore throat or difficulty swallowing, sputum or drainage that is yellow green or symptoms dont improve in a week , give us a call.6 day h/o clear nasal discharge, nasal congestion, sinus pain, PND.Denies fever, NVD, sorethroat, rash, cough.Denies asthma/COPD, smoking.Has allergies and takes desloratidine but symptoms are diffrent and getting worse now Otitis media and related conditions (10 sources) Dysfunction of eustachian tube; Translations: [Eustachian tube dysfunction] Resolved: 3 11-14-2014 Episodic Pneumonia (except that caused by tuberculosis or sexually transmitted disease) (20 sources) Pneumonia; Translations: [Pneumonia] Resolved: 1 10-31-2020 Episodic Comment on above: PNA now resolved.PNA now improved, now allergies.Continue desloratidineRepeat CXR to check for resolution of ground glass opacities.ED on 02/06 Chest x-ray :Pneumonia, right costophrenic angle revealed infiltrates versus atelectasis, recieved levaquin X 10 days last dose 02/13/14.03/21:CT chest : ill defined nodular ground glass opacities in left lung lower lobe consistent with PNA. No PE, no dissection.Augmentin and azithromcin X 10 days.Mild cough productive of clear phlegm, nasal congestion with clear nasal discharge,Severe pain in the right side of her chest especially when she coughs. Pain is 9/10 in severity when she coughs and 4/10 at baseline Residual codes; unclassified (20 sources) Body mass index 20-24 - normal; Translations: [BMI 21.0-21.9, adult] 12-17-2020 Episodic Residual codes; unclassified (14 sources) Insomnia; Translations: [Insomnia] 12-17-2020 Episodic Comment on above: Discussed sleep hygi tila.Melatonin OTCBenadryl OTCSleep mediation, relaxation exerciseGlenn Prasanna sleep meditation.Insomnia worse for the last 2-3 months since on / disability.Able to fall asleep but unable to stay asleep and wakes up in the middle of the night thinking.Reads a book before going to sleep.Sleeping very well now with neurontinExercvises everydayDrink one cup of cofee in the AMDenies depression Residual codes; unclassified (20 sources) Non-smoker; Translations: [Non-smoker] 12-17-2020 Episodic Residual codes; unclassified (13 sources) Postmenopausal state; Translations: [Postmenopausal (Renamed from Postmenopausal status)] 12-17-2020 Episodic Residual codes; unclassified (13 sources) Chill; Translations: [Chills (without fever)] Resolved: 3 01-19-2015 Episodic Comment on above: ? anxiety ? menapaus e. will see how celexa. Residual codes; unclassified (20 sources) Sleep disorder; Translations: [Sleep disorder] Resolved: 4 10-11-2013 Episodic Residual codes; unclassified (4 sources) Early satiety; Translations: [Early satiety] 09-04-2022 Episodic Syncope (20 sources) Syncope and collapse; Translations: [Syncope and collapse] Resolved: 4 01-17-2015 Episodic Syncope (12 sources) Syncope Unclassified (14 sources) WWV V70.0 12-17-2020 Comment on above: colonscopy 3-13. due for mammo. TAHBSO. shingles had 6-12 so could have vaccine now. Unclassified (20 sources) Unclassified (20 sources) Colon polyp (211.3) Unclassified (12 sources) Onychomycosis of toenail Unclassified (12 sources) Lung density on x-ray Unclassified (8 sources) Rib pain on right side Unclassified (16 sources) Chronic idiopathic constipation Unclassified (16 sources) Visual Change (443.9) Unclassified (20 sources) Stress Reaction (308.4) Unclassified (20 sources) Abdominal Pain,RUQ(789.01) Unclassified (12 sources) Chronic idiopathic constipation (564.00) Unclassified (8 sources) SYMPTOM, CHILLS (WITHOUT FEVER) (780.64) Unclassified (8 sources) Symptom, Weakness (728.87) Viral infection (20 sources) Herpes zoster; Translations: [Herpes zoster] Resolved: 1 10-31-2020 Episodic Comment on above: Herpes zoster neural norberto now improved with neurontin, now taperNeurontin 300 mg TID cont for 2 monthsPatient has not recieved herpes zoster vaccine and is refusing it because some of her friends got shingles from the vaccine.Counselled her to think about it.300 mg BID for 1 mg qd for 1 ecis177 mg Qd for 0mloc077 mg Qd for 1 week then stop.Herpes zoster vaccine if >60Burning skin pain at the area of right 5 th rib extending from spine to the sternum, in dermatomal fashion, since 03/20, no rash now improved with neurontin.Had shingles twice once left flank. Past or Other Problems Problem Classification Problem Date Documented Date Episodic/Chronic Other connective tissue disease (1 source) Pain in right leg; Translations: [Pain in right leg] Onset: 03-07-2024 Episodic Unclassified (7 sources) Deliveries (Parity); Translations: [Deliveries (Parity)] 12-17-2020 Comment on above: 3 Unclassified (7 sources) Liver disease 12-17-2020 Unclassified (7 sources) Pregnancies (); Translations: [Pregnancies ()] 12-17-2020 Comment on above: 3 Unclassified (20 sources) Unspecified Diagnosis 05-24-2015 Unclassified (15 sources) BMI 21.0-21.9, adult Unclassified (15 sources) Non-smoker Unclassified (8 sources) Postmenopausal (Renamed from Postmenopausal status) Unclassified (8 sources) Encounter for screening for lipid disorder Unclassified (4 sources) Annual Medicare Phyiscal WITHOUT abnormal findings (Renamed from Encntr for general adult medical exam w/o abnormal findings) Unclassified (4 sources) Colon cancer screening (Renamed from Encounter for screening for malignant neoplasm of colon) Unclassified (4 sources) Encounter for screening mammogram for breast cancer (Renamed from Encounter for screening mammogram for malignant neoplasm of breast) Unclassified (8 sources) Encounter for hepatitis C virus screening test for high risk patient Unclassified (4 sources) Vaccine counseling Unclassified (8 sources) Allergic drug reaction Unclassified (4 sources) Rash Unclassified (4 sources) Acute pansinusitis, recurrence not specified Unclassified (4 sources) Eustachian tube dysfunction (381.81) Unclassified (4 sources) HERPES ZOSTER WITH OTHER NERVOUS SYSTEM COMPLICATIONS, OTHER (053.19) Unclassified (4 sources) Rash (782.1) Unclassified (4 sources) Acute Conjuctivitis (372.01) Unclassified (1 source) gallbladder surgery 08-28-2021 Results Test Name Value Interpretation Reference Range Facility Venous Duplex US, Unilateral on 02-12-2024 Venous Duplex US, Unilateral [facility] [address] [place] [address] Venous Duplex US, Unilateral 02/12/24 1514 MR#: [id number] Acct: [id number] Name: MAK WILLSON Rep #: [id number] : 1950 73 From: Luis Felipe Pope MD Attending Dr: Dr. Corey Figueroa MD Status: REG CLI Ordering Dr: Corey Figueroa MD Date: 02/12/24 Location: [facility] Sex: F C Admitted: Reason For Study: RLE Pain RIGHT LEFT GSV is normal. FV is compressible, spontaneous, phasic, CFV is compressible, spontaneous, phasic, competent and demonstrates normal competent and demonstrates normal augmentation. augmentation. FV is compressible, spontaneous, phasic, competent and demonstrates normal augmentation. POP V is compressible, spontaneous, phasic, competent and demonstrates normal augmentation. T/P Trunk is compressible. PTV is compressible. RT PerV is compressible. Procedure This is a venous duplex using B-mode, color flow and spectral Doppler. Exam performed in department. The exam was diagnostic. A preliminary report was called and/or faxed to [facility]. VL/Venous Duplex US, Unilateral Interpretation Summary Deep veins of the right lower extremity are patent and compressible segmentally. There is no evidence of right lower extremity deep vein thrombosis. Valvular competence appears intact within the proximal deep venous system on the right . The right great saphenous vein appears patent and compressible segmentally. The left femoral vein is patent and compressible. Ordering Physician: Corey Figueroa Referring Physician: Brittany Dougherty M.D. Performed By: Miguel Almanza RVT 02/13/242335 Date Luis Felipe Pope MD CC: Dr. Brittany Dougherty DO; Dr. Corey Figueroa MD Date Dictated: 02/12/241513 Date Transcribed: 02/13/242335 Vp: Signed Normal [facility] CALCIFEDIOL (98836)Ordered B y: Engine Watchman on 09-04-2022 25-hydroxyvitamin D [Mass/Vol] 47.4 ng/mL Normal 30.0-100.0 [facility]; [facility] Work Phone: Comment on above: Vitamin D deficiency has been defined by the [employer] of[employer] and an Endocrine Society practice guideline as alevel of serum 25-OH vitamin D less than 20 ng/mL (1,2).The Endocrine Society went on to further define vitamin Dinsufficiency as a level between 21 and 29 ng/mL (2).1. IOM ([employer]). 2010. Dietary reference intakes for calcium and D. [place]: The National Academies Press.2. Deena MF, Masood NC, Kiki MOREIRA, et al. Evaluation, treatment, and prevention of vitamin D deficiency: an Endocrine Society clinical practice guideline. JCEM. 2010; 96(7):1911-30. PATIENT NOT FASTINGP ERFORMED BY: Engage70 [employer] CREFormerly [facility], [facility] [id number] CBC W/AUTO DIFF WBC (05029)O rdered By: Engine Watchman on 09-04-2022 Basophils (Bld) [#/Vol] 0.0 10*3/uL Normal 0.0-0.2 [facility]; [facility] Work Phone: Comment on above: PATIENT NOT FASTINGP ERFORMED BY: Isailin6[address] [facility] [id number] Basophils/100 WBC (Bld) 1 % Normal [facility]; [facility] Work Phone: Comment on above: PATIENT NOT FASTINGP ERFORMED BY: Engage70 [address] [place] [id number] Eosinophils (Bld) [#/Vol] 0.1 10*3/uL Normal 0.0-0.4 [facility]; [facility] Work Phone: Comment on above: PATIENT NOT FASTINGP ERFORMED BY: CB [facility] Mozvvl9629 [address]Dublin [place] [id number] Eosinophils/100 WBC (Bld) 2 % Normal [facility]; [facility] Work Phone: Comment on above: PATIENT NOT FASTINGP ERFORMED BY: CB [facility] Dagwlk3884 [address] [place] [id number] Erythrocyte distribution width (RBC) [Ratio] 12.5 % Normal 11.7-15.4 [facility]; [facility] Work Phone: Comment on above: PATIENT NOT FASTINGP ERFORMED BY: LASHON Labcolayla MimsJsliyp7948 [address] RoadDublin [place] [id number] Hematocrit (Bld) [Volume fraction] 40.2 % Normal 34.0-46.6 [facility]; [facility] Work Phone: Comment on above: PATIENT NOT FASTINGP ERFORMED BY: LASHON Labcolayla BowmanRryuxh8[address] [place] [id number] Hemoglobin (Bld) [Mass/Vol] 13.2 g/dL Normal 11.1-15.9 [facility]; [facility] Work Phone: Comment on above: PATIENT NOT FASTINGP ERFORMED BY: CB [facility] Mtmrpv4503 [address] [place] [id number] Immature granulocytes (Bld) [#/Vol] 0.0 10*3/uL Normal 0.0-0.1 [facility]; [facility] Work Phone: Comment on above: PATIENT NOT FASTINGP ERFORMED BY: CB [facility] Kmffpc2148 [address] [place] [id number] Immature granulocytes/100 WBC (Bld) 0 % Normal [facility]; [facility] Work Phone: Comment on above: PATIENT NOT FASTINGP ERFORMED BY: CB [facility] Uakffd4816 [address] [place] [id number] Lymphocytes (Bld) [#/Vol] 1.5 10*3/uL Normal 0.7-3.1 [facility]; [facility] Work Phone: Comment on above: PATIENT NOT FASTINGP ERFORMED BY: CB [facility] Pyxtck6[address] [place] [id number] Lymphocytes/100 WBC (Bld) 34 % Normal [facility]; [facility] Work Phone: Comment on above: PATIENT NOT FASTINGP ERFORMED BY: CB [facility] Bjwyri3942 [address]Dublin [place] [id number] MCH (RBC) [Entitic mass] 30.1 pg Normal 26.6-33.0 [facility]; [facility] Work Phone: Comment on above: PATIENT NOT FASTINGP ERFORMED BY: CB [facility] Dkrpsi4974 [address] [place] [id number] MCHC (RBC) [Mass/Vol] 32.8 g/dL Normal 31.5-35.7 [facility]; [facility] Work Phone: Comment on above: PATIENT NOT FASTINGP ERFORMED BY: CB [facility] Nhzvnn2233 [address] [place] [id number] MCV (RBC) [Entitic vol] 92 fL Normal 79-97 [facility]; [facility] Work Phone: Comment on above: PATIENT NOT FASTINGP ERFORMED BY: CB [facility] Weftjm0795 [address] [place] [id number] Monocytes (Bld) [#/Vol] 0.4 10*3/uL Normal 0.1-0.9 [facility]; [facility] Work Phone: Comment on above: PATIENT NOT FASTINGP ERFORMED BY: CB [facility] Vygmuy3[address] [place] [id number] Monocytes/100 WBC (Bld) 9 % Normal [facility]; [facility] Work Phone: Comment on above: PATIENT NOT FASTINGP ERFORMED BY: CB [facility] Kdkust0465 [address] [place] [id number] Neutrophils (Bld) [#/Vol] 2.4 10*3/uL Normal 1.4-7.0 [facility]; [facility] Work Phone: Comment on above: PATIENT NOT FASTINGP ERFORMED BY: CB [facility] Ljmpfp7734 [address] [place] [id number] Neutrophils/100 WBC (Bld) 54 % Normal [facility]; [facility] Work Phone: Comment on above: PATIENT NOT FASTINGP ERFORMED BY: CB [facility] Fipzco6[address] [place] [id number] Platelets (Bld) [#/Vol] 179 10*3/uL Normal 150-450 [facility]; [facility] Work Phone: Comment on above: PATIENT NOT FASTINGP ERFORMED BY: CB [facility] Ntxnbl5110 [address] [place] [id number] RBC (Bld) [#/Vol] 4.39 10*6/uL Normal 3.77-5.28 Compr ehensive [facility]; [facility] Work Phone: Comment on above: PATIENT NOT FASTINGP ERFORMED BY: CB [facility] Sbkaou9127 [address] [place] [id number] WBC (Bld) [#/Vol] 4.4 10*3/uL Normal 3.4-10.8 Compre [facility]; [facility] Work Phone: Comment on above: PATIENT NOT FASTINGP ERFORMED BY: CB [facility] Nvqmsc5475 [address] [place] [id number] Celiac Disease Comphrehensiv e Profile (90308)Ordered By: Engine Watchman on 09-04-2022 Endomysium IgA Ql (S) Negative Normal [facility]; [facility] Work Phone: Comment on above: PATIENT NOT FASTINGP ERFORMED BY: CB [facility] Bxijhw4154 [address] [place] [id number] Gliadin peptide IgA Qn (S) 8 {units} Normal 0-19 [facility]; [facility] Work Phone: Comment on above: Negative 0 - 19 Weak Positive 20 - 30 Moderate to Strong Positive >30 PATIENT NOT FASTINGP ERFORMED BY: LASHON Bowman6370 [facility] [id number] Gliadin peptide IgG Qn (S) 2 {units} Normal 0-19 [facility]; [facility] Work Phone: Comment on above: Negative 0 - 19 Weak Positive 20 - 30 Moderate to Strong Positive >30 PATIENT NOT FASTINGP ERFORMED BY: LASHON Bowman6370 [facility] [id number] IgA [Mass/Vol] 236 mg/dL Normal 87-352 Comprehens joann [facility]; [facility] Work Phone: Comment on above: PATIENT NOT FASTINGP ERFORMED BY: LASHON Anusha Bowman6370 [facility] [id number] tTG IgA Qn (S) <2 Normal 0-3 Comprehens joann [facility]; [facility] Work Phone: Comment on above: Negative 0 - 3 Weak Positive 4 - 10 Positive >10 . Tissue Transglutaminase (tTG) has been identified as the endomysial antigen. Studies have demonstr- ated that endomysial IgA antibodies have over 99% specificity for gluten sensitive enteropathy. PATIENT NOT FASTINGP ERFORMED BY: LASHON Bowman6370 [facility] [id number] tTG IgG Qn (S) 3 U/mL Normal 0-5 Comprehens joann [facility]; [facility] Work Phone: Comment on above: Negative 0 - 5 Weak Positive 6 - 9 Positive >9 PATIENT NOT FASTINGP ERFORMED BY: LASHON Bowman6370 [facility] [id number] MAGNESIUM ([id number])Ordered By: Engine Watchman on 09-04-2022 Magnesium [Mass/Vol] 2.1 mg/dL Normal 1.6-2.3 [facility]; [facility] Work Phone: Comment on above: PATIENT NOT FASTINGP ERFORMED BY: CB [facility] Sdijxn7135 [address] [place] [id number] METABOLIC PANEL, COMPREHENSI VE ([id number])Ordered By: Engine Watchman on 09-04-2022 Albumin [Mass/Vol] 4.5 g/dL Normal 3.9-4.9 [facility]; [facility] Work Phone: Comment on above: PATIENT NOT FASTINGP ERFORMED BY: CB [facility] Fgnmcr3335 [address] [place] [id number] Albumin/Globulin [Mass ratio] 2.0 {ratio} Normal 1.2-2.2 [facility]; [facility] Work Phone: Comment on above: PATIENT NOT FASTINGP ERFORMED BY: CB [facility] Vuakks0891 [address] [place] [id number] ALP [Catalytic activity/Vol] 88 U/L Normal 44-121 [facility]; [facility] Work Phone: Comment on above: PATIENT NOT FASTINGP ERFORMED BY: CB [facility] Wcqffo1956 [address] [place] [id number] ALT [Catalytic activity/Vol] 15 U/L Normal 0-32 [facility]; [facility] Work Phone: Comment on above: PATIENT NOT FASTINGP ERFORMED BY: CB [facility] Oerykj8509 [address] [place] [id number] AST [Catalytic activity/Vol] 23 U/L Normal 0-40 [facility]; [facility] Work Phone: Comment on above: PATIENT NOT FASTINGP ERFORMED BY: CB [facility] Eoortp6336 [address] [place] [id number] Bilirubin [Mass/Vol] 0.5 mg/dL Normal 0.0-1.2 [facility]; [facility] Work Phone: Comment on above: PATIENT NOT FASTINGP ERFORMED BY: CB [facility] Ymcoyx3335 [address] [place] [id number] Calcium [Mass/Vol] 9.7 mg/dL Normal 8.7-10.3 [facility] providence[facility]; [facility] Work Phone: Comment on above: PATIENT NOT FASTINGP ERFORMED BY: LASHON Labcolayla Noznmr4282 [address] RoadDuin [place] [id number] Chloride [Moles/Vol] 102 mmol/L Normal 96-106 [facility]; [facility] Work Phone: Comment on above: PATIENT NOT FASTINGP ERFORMED BY: CB [facility] Lycbkr[address] [facility] [id number] CO2 [Moles/Vol] 27 mmol/L Normal 20-29 Comprehen [facility]; [facility] Work Phone: Comment on above: PATIENT NOT FASTINGP ERFORMED BY: [facility] Pynmgh[address] [facility] [id number] Creatinine [Mass/Vol] 0.72 mg/dL Normal 0.57-1.00 [facility]; [facility] Work Phone: Comment on above: PATIENT NOT FASTINGP ERFORMED BY: [facility]6370 [facility] [id number] GFR/1.73 sq M.predicted among non-blacks MDRD (S/P/Bld) [Vol rate/Area] 90 mL/min/{1.73_m2} Normal Comprehensiv e Internal Medicine; [facility] Work Phone: Comment on above: PATIENT NOT FASTINGP ERFORMED BY: [facility] Dgfkgl2951 [address] [facility] [id number] Globulin (S) [Mass/Vol] 2.3 g/dL Normal 1.5-4.5 [facility]; [facility] Work Phone: Comment on above: PATIENT NOT FASTINGP ERFORMED BY: [facility] Dlovoj2229 [address] [facility] [id number] Glucose [Mass/Vol] 85 mg/dL Normal 70-99 [facility]; [facility] Work Phone: Comment on above: PATIENT NOT FASTINGP ERFORMED BY: CB [facility] Hkleoi1715 [address] RoadDublin [place] [id number] Potassium [Moles/Vol] 4.0 mmol/L Normal 3.5-5.2 [facility]; [facility] Work Phone: Comment on above: PATIENT NOT FASTINGP ERFORMED BY: CB [facility] Klcmjo6547 [address] RoadDublin [place] [id number] Protein [Mass/Vol] 6.8 g/dL Normal 6.0-8.5 [facility] Internal Medicine; [facility] Work Phone: Comment on above: PATIENT NOT FASTINGP ERFORMED BY: CB [facility] Eewfzi5943 [address] RoadDublin [place] [id number] Sodium [Moles/Vol] 142 mmol/L Normal 134-144 [facility]; [facility] Work Phone: Comment on above: PATIENT NOT FASTINGP ERFORMED BY: CB [facility] Dcbpuv9433 [address] RoadDublin [place] [id number] Urea nitrogen [Mass/Vol] 12 mg/dL Normal 8-27 [facility]; [facility] Work Phone: Comment on above: PATIENT NOT FASTINGP ERFORMED BY: CB [facility] Dtlogk9654 [address] RoadDublin [place] [id number] Urea nitrogen/Creatinin e [Mass ratio] 17 mg/mg Normal 12-28 [facility]; [facility] Work Phone: Comment on above: PATIENT NOT FASTINGP ERFORMED BY: CB [facility] Wtwpbh3875 [address] RoadDublin [place] [id number] TSH ([id number])Ordered By: CADFORCEe m Hardening Machine Operator on 09-04-2022 TSH Qn 1.700 {uIU/mL} Normal 0.450-4.500 [facility] Internal Medicine; [facility] Work Phone: Comment on above: PATIENT NOT FASTINGP ERFORMED BY: CB [facility] Lhtuxx6770 [address] RoadDublin [place] [id number] VITAMIN B-12 (CYANOCOBALAMIN ) ([id number])Ordered By: Engine Watchman on 09-04-2022 Cobalamin (Vitamin B12) [Mass/Vol] 493 pg/mL Normal 232-1245 [facility]; [facility] Work Phone: Comment on above: PATIENT NOT FASTINGP ERFORMED BY: [facility] Tysifj0523 [address] Roadblin [place] [id number] CBC W/AUTO DIFF WBC (88144)O rdered By: Engine Watchman on 02-21-2021 Basophils (Bld) [#/Vol] 0.1 10*3/uL Normal 0.0-0.2 [facility]; [facility] Work Phone: Comment on above: PATIENT WAS FASTINGP ERFORMED BY: [facility]6[address] Roadbl[address] [place] [id number] Basophils/100 WBC (Bld) 2 % Normal [facility]; [facility] Work Phone: Comment on above: PATIENT WAS FASTINGP ERFORMED BY: [facility] Ccvapd7365 [address] RoadDublin [place] [id number] Eosinophils (Bld) [#/Vol] 0.1 10*3/uL Normal 0.0-0.4 [facility]; [facility] Work Phone: Comment on above: PATIENT WAS FASTINGP ERFORMED BY: [facility] RoadDublin [place] [id number] Eosinophils/100 WBC (Bld) 3 % Normal [facility]; [facility] Work Phone: Comment on above: PATIENT WAS FASTINGP ERFORMED BY: [facility] Fywunq7[address] [facility]in [place] [id number] Erythrocyte distribution width (RBC) [Ratio] 12.0 % Normal 11.7-15.4 [facility]; [facility] Work Phone: Comment on above: PATIENT WAS FASTINGP ERFORMED BY: [facility] Sirozf0[address] [facility] HospitalD[facility] [place] [id number] Hematocrit (Bld) [Volume fraction] 39.9 % Normal 34.0-46.6 [facility]; [facility] Work Phone: Comment on above: PATIENT WAS FASTINGP ERFORMED BY: [facility] Hnxzdf5081 [address] RoadDublin [place] [id number] Hemoglobin (Bld) [Mass/Vol] 13.0 g/dL Normal 11.1-15.9 [facility]; [facility] Work Phone: Comment on above: PATIENT WAS FASTINGP ERFORMED BY: LabcoRUSTCnqwfc3094 [address] RoadDublin [place] [id number] Immature granulocytes (Bld) [#/Vol] 0.0 10*3/uL Normal 0.0-0.1 [facility]; [facility] Work Phone: Comment on above: PATIENT WAS FASTINGP ERFORMED BY: [facility] Kfloas1200 [address] RoadDublin [place] [id number] Immature granulocytes/100 WBC (Bld) 0 % Normal [facility]; [facility] Work Phone: Comment on above: PATIENT WAS FASTINGP ERFORMED BY: [facility]6[address] [facility]in [place] [id number] Lymphocytes (Bld) [#/Vol] 1.6 10*3/uL Normal 0.7-3.1 [facility]; [facility] Work Phone: Comment on above: PATIENT WAS FASTINGP ERFORMED BY: [facility] Exjfxn5760 [address] RoadDublin [place] [id number] Lymphocytes/100 WBC (Bld) 34 % Normal [facility]; [facility] Work Phone: Comment on above: PATIENT WAS FASTINGP ERFORMED BY: [facility] Oqiiho4557 [address] [facility]blin [place] [id number] MCH (RBC) [Entitic mass] 30.3 pg Normal 26.6-33.0 [facility]; [facility] Work Phone: Comment on above: PATIENT WAS FASTINGP ERFORMED BY: [facility] Oirwgp9558 [address] RoadDublin [place] [id number] MCHC (RBC) [Mass/Vol] 32.6 g/dL Normal 31.5-35.7 [facility]; [facility] Work Phone: Comment on above: PATIENT WAS FASTINGP ERFORMED BY: LASHON Labcolayla Ipqxpe2550 [address] RoadDublin [place] [id number] MCV (RBC) [Entitic vol] 93 fL Normal 79-97 [facility]; [facility] Work Phone: Comment on above: PATIENT WAS FASTINGP ERFORMED BY: CB [facility] Sungpf5966 [address] RoadDublin [place] [id number] Monocytes (Bld) [#/Vol] 0.4 10*3/uL Normal 0.1-0.9 [facility]; [facility] Work Phone: Comment on above: PATIENT WAS FASTINGP ERFORMED BY: LASHON Labshasha MimsUbafjg9001 [address] RoadDublin [place] [id number] Monocytes/100 WBC (Bld) 9 % Normal [facility]; [facility] Work Phone: Comment on above: PATIENT WAS FASTINGP ERFORMED BY: LASHON [facility] Qrsctl3126 [address] RoadDublin [place] [id number] Neutrophils (Bld) [#/Vol] 2.5 10*3/uL Normal 1.4-7.0 [facility]; [facility] Work Phone: Comment on above: PATIENT WAS FASTINGP ERFORMED BY: LASHON Labcolayla Zdmhyb4060 [address] RoadDublin [place] [id number] Neutrophils/100 WBC (Bld) 52 % Normal [facility]; [facility] Work Phone: Comment on above: PATIENT WAS FASTINGP ERFORMED BY: CB [facility] Qputlz2041 [address] RoadDublin [place] [id number] Platelets (Bld) [#/Vol] 192 10*3/uL Normal 150-450 [facility]; [facility] Work Phone: Comment on above: PATIENT WAS FASTINGP ERFORMED BY: CB [facility] Ntmctg3904 [address] RoadDublin [place] [id number] RBC (Bld) [#/Vol] 4.29 10*6/uL Normal 3.77-5.28 [facility] Internal Medicine; [facility] Work Phone: Comment on above: PATIENT WAS FASTINGP ERFORMED BY: LASHON Labcolayla BowmanNigefm2855 [address] RoadDublin [place] [id number] WBC (Bld) [#/Vol] 4.7 10*3/uL Normal 3.4-10.8 [facility] Internal [facility]; [facility] Work Phone: Comment on above: PATIENT WAS FASTINGP ERFORMED BY: LASHON [facility] Pkbxxg6546 [address] RoadDublin [place] [id number] METABOLIC PANEL, COMPREHENSI VE ([id number])Ordered By: Engine Watchman on 02-21-2021 Albumin [Mass/Vol] 4.1 g/dL Normal 3.8-4.8 [facility]; [facility] Work Phone: Comment on above: PATIENT WAS FASTINGP ERFORMED BY: LASHON Labsheryl Swklcx7316 [address] RoadDublin [place] [id number] Albumin/Globulin [Mass ratio] 1.8 {ratio} Normal 1.2-2.2 [facility]; [facility] Work Phone: Comment on above: PATIENT WAS FASTINGP ERFORMED BY: LASHON Labshasha MimsThrxjm2412 [address] RoadDublin [place] [id number] ALP [Catalytic activity/Vol] 93 U/L Normal 44-121 [facility]; [facility] Work Phone: Comment on above: Please note refere nce interval change PATIENT WAS FASTINGP ERFORMED BY: LASHON [facility] Rccaem6865 [address] RoadDublin [place] [id number] ALT [Catalytic activity/Vol] 17 U/L Normal 0-32 [facility]; [facility] Work Phone: Comment on above: PATIENT WAS FASTINGP ERFORMED BY: LASHON [facility] Jgpzno3603 [address] RoadDublin [place] [id number] AST [Catalytic activity/Vol] 22 U/L Normal 0-40 [facility]; [facility] Work Phone: Comment on above: PATIENT WAS FASTINGP ERFORMED BY: LASHON Bowman[address] [facility] [place] [id number] Bilirubin [Mass/Vol] 0.7 mg/dL Normal 0.0-1.2 [facility]; [facility] Work Phone: Comment on above: PATIENT WAS FASTINGP ERFORMED BY: Anusha Bowman6[address] RoadColumbus Regional Healthcare Systemin [place] [id number] Calcium [Mass/Vol] 9.3 mg/dL Normal 8.7-10.3 [facility]; [facility] Work Phone: Comment on above: PATIENT WAS FASTINGP ERFORMED BY: LASHON Bowman[address] [facility]in [place] [id number] Chloride [Moles/Vol] 104 mmol/L Normal 96-106 [facility]; [facility] Work Phone: Comment on above: PATIENT WAS FASTINGP ERFORMED BY: Anusha Mimslin6[address] [facility]in [place] [id number] CO2 [Moles/Vol] 25 mmol/L Normal 20-29 [facility] Internal [facility]; [facility] Work Phone: Comment on above: PATIENT WAS FASTINGP ERFORMED BY: Anusha Bowman6370 [facility] [id number] Creatinine [Mass/Vol] 0.75 mg/dL Normal 0.57-1.00 [facility]; [facility] Work Phone: Comment on above: PATIENT WAS FASTINGP ERFORMED BY: Lan Kohbqc0206 [address] [facility]in [place] [id number] GFR/1.73 sq M.predicted among blacks CKD-EPI (S/P/Bld) [Vol rate/Area] 94 mL/min/1.73 Normal [facility]; [facility] Work Phone: Comment on above: In accordance with recommendations from the NKF-ASN Task force, [facility] is in the process of updating its eGFR calculation to the 2020 CKD-EPI creatinine equation that estimates kidney function without a race variable. PATIENT WAS FASTINGP ERFORMED BY: [facility] Gffqxc9592 [address] [facility]bl[place] [id number] GFR/1.73 sq M.predicted among non-blacks CKD-EPI (S/P/Bld) [Vol rate/Area] 82 mL/min/1.73 Normal [facility]; [facility] Work Phone: Comment on above: PATIENT WAS FASTINGP ERFORMED BY: [facility]6[address]bl[address] [place] [id number] Globulin (S) [Mass/Vol] 2.3 g/dL Normal 1.5-4.5 [facility]; [facility] Work Phone: Comment on above: PATIENT WAS FASTINGP ERFORMED BY: [facility] Rkeobr1873 [address] [facility] Hospitalblin [place] [id number] Glucose [Mass/Vol] 79 mg/dL Normal 65-99 [facility]; [facility] Work Phone: Comment on above: PATIENT WAS FASTINGP ERFORMED BY: LabChristian HospitalVjwjhi15[address] [facility]in [place] [id number] Potassium [Moles/Vol] 4.2 mmol/L Normal 3.5-5.2 [facility]; [facility] Work Phone: Comment on above: PATIENT WAS FASTINGP ERFORMED BY: LabChristian HospitalRwbrml0579 [address] [facility]in [place] [id number] Protein [Mass/Vol] 6.4 g/dL Normal 6.0-8.5 [facility]; [facility] Work Phone: Comment on above: PATIENT WAS FASTINGP ERFORMED BY: [facility] Lpmttj6727 [address] RoadDublin [place] [id number] Sodium [Moles/Vol] 143 mmol/L Normal 134-144 [facility]; [facility] Work Phone: Comment on above: PATIENT WAS FASTINGP ERFORMED BY: [facility] Yhoslm2016 [address] RoadDublin [place] [id number] Urea nitrogen [Mass/Vol] 12 mg/dL Normal 8-27 [facility]; [facility] Work Phone: Comment on above: PATIENT WAS FASTINGP ERFORMED BY: CB [facility] Ictxhh5562 [address] RoadDublin [place] [id number] Urea nitrogen/Creatinin e [Mass ratio] 16 mg/mg Normal 12-28 [facility]; [facility] Work Phone: Comment on above: PATIENT WAS FASTINGP ERFORMED BY: CB [facility] Jvebie1602 [address] RoadDublin [place] [id number] TSH ([id number])Ordered By: Direct Flow Medical Hardening Machine Operator on 02-21-2021 TSH Qn 2.320 {uIU/mL} Normal 0.450-4.500 [facility] Internal Medicine; [facility] Work Phone: Comment on above: PATIENT WAS FASTINGP ERFORMED BY: CB [facility] Jluyzy6994 [address] RoadDublin [place] [id number] CALCIFEDIOL (60863)Ordered B y: Engine Watchman on 11-15-2020 25-hydroxyvitamin D [Mass/Vol] 34.3 ng/mL Normal 30.0-100.0 [facility]; [facility] Work Phone: Comment on above: Vitamin D deficiency has been defined by the [employer] ofMed[employer] and an Endocrine Society practice guideline as alevel of serum 25-OH vitamin D less than 20 ng/mL (1,2).The Endocrine Society went on to further define vitamin Dinsufficiency as a level between 21 and 29 ng/mL (2).1. IOM ([employer]). 2010. Dietary reference intakes for calcium and D. [place]: The National Academies Press.2. Deena MF, Masood NC, Kiki MOREIRA, et al. Evaluation, treatment, and prevention of vitamin D deficiency: an Endocrine Society clinical practice guideline. JCEM. 2010; 96(7):1911-30. PATIENT NOT FASTINGP ERFORMED BY: CB [facility] Uvjwbr8823 [address] RoadDublin [place] [id number] HEPATITIS C ANTIBODY (01573) Ordered By: Engine Watchman on 11-15-2020 HCV Ab Signal/Cutoff IA [Rel units/Vol] {ratio} Normal 0.0-0.9 [facility]; [facility] Work Phone: Comment on above: Negative: < 0.8 Inde terminate: 0.8 - 0.9 Positive: > 0.9 . The CDC recommends that a positive HCV antibody result be followed up with a HCV Nucleic Acid Amplification test (331795). PATIENT NOT FASTINGP ERFORMED BY: CB [facility] Innbsd0786 [address] RoadDublin [place] [id number] LIPID PANEL (43809)Ordered B y: Engine Watchman on 11-15-2020 Cholesterol [Mass/Vol] 216 mg/dL Abnormal 100-199 [facility]; [facility] Work Phone: Comment on above: PATIENT WAS FASTINGP ERFORMED BY: CB [facility] Nlfhpu3050 [address] RoadDublin [place] [id number]; 11-30 KF Cholesterol in HDL [Mass/Vol] 99 mg/dL Normal [facility]; [facility] Work Phone: Comment on above: PATIENT WAS FASTINGP ERFORMED BY: CB [facility] Gxocnf3116 [address] RoadDublin [place] [id number]; 11-30 KF Triglyceride [Mass/Vol] 57 mg/dL Normal 0-149 [facility]; [facility] Work Phone: Comment on above: PATIENT WAS FASTINGP ERFORMED BY: CB [facility] Mctjpa7515 [address] RoadDublin [place] [id number]; 11-30 KF LIPID PANEL (19086) 10 mg/dL Normal 5-40 [facility]; [facility] Work Phone: Comment on above: PATIENT WAS FASTINGP ERFORMED BY: CB [facility] Igxosv8744 [address] RoadDublin [place] [id number]; 11-30 KF LIPID PANEL (00216) 107 mg/dL Abnormal 0-99 [facility]; [facility] Work Phone: Comment on above: PATIENT WAS FASTINGP ERFORMED BY: CB [facility] Uzhbwu2002 [address] RoadD[address] [place] [id number]; 11-30 LIPID PANEL (84417) 1.1 {ratio} Normal 0.0-3.2 [facility]; [facility] Work Phone: Comment on above: LDL/HDL Ratio Men Wo men 1/2 Avg.Risk 1.0 1.5 Avg.Risk 3.6 3.2 2X Avg.Risk 6.2 5.0 3X Avg.Risk 8.0 6.1 PATIENT WAS FASTINGP ERFORMED BY: CB [facility] Mddjwh9858 [address]abl[place] [id number]; 11-30 KF Sputum Culture (03973)Ordere d By: Engine Watchman on 03-22-2015 Bacteria identified Cx Nom (Sput) Final report Normal [facility]; [facility] Work Phone: Comment on above: PATIENT NOT FASTINGP ERFORMED BY: CB [facility] Eyneem10[address] [place] [id number] Information: [id number] Bacteria identified Cx Nom (Unsp spec) RRF Normal [facility]; [facility] Work Phone: Comment on above: Routine respiratory silver PATIENT NOT FASTINGP ERFORMED BY: CB [facility] Tlxfwz4478 [address] [place] [id number] Information: [id number] CBC (Auto) ([id number])Ordered By : Engine Watchman on 09-14-2012 Erythrocyte distribution width (RBC) [Ratio] 13.6 % Normal 12.3-15.4 [facility]; [facility] Work Phone: Comment on above: PATIENT NOT FASTINGP ERFORMED BY: CB [facility] Cdvyfu9149 [address] [id number] Hematocrit (Bld) [Volume fraction] 39.3 % Normal 34.0-46.6 [facility]; [facility] Work Phone: Comment on above: PATIENT NOT FASTINGP ERFORMED BY: CB [facility] Evcnfq5410 [address] [place] [id number] Hemoglobin (Bld) [Mass/Vol] 13.0 g/dL Normal 11.1-15.9 [facility]; [facility] Work Phone: Comment on above: PATIENT NOT FASTINGP ERFORMED BY: CB [facility] Avvppx6443 [address] RoadDublin [place] [id number] MCH (RBC) [Entitic mass] 29.8 pg Normal 26.6-33.0 [facility]; [facility] Work Phone: Comment on above: PATIENT NOT FASTINGP ERFORMED BY: CB [facility] Dyltol6108 [address] [place] [id number] MCHC (RBC) [Mass/Vol] 33.1 g/dL Normal 31.5-35.7 [facility]; [facility] Work Phone: Comment on above: PATIENT NOT FASTINGP ERFORMED BY: CB [facility] Nuotuc1793 [address] RoadD[address] [place] [id number] MCV (RBC) [Entitic vol] 90 fL Normal 79-97 [facility]; [facility] Work Phone: Comment on above: PATIENT NOT FASTINGP ERFORMED BY: CB [facility] Fegzxs6550 [address] RoadD[address] [place] [id number] Platelets (Bld) [#/Vol] 169 10*3/uL Normal 140-415 [facility]; [facility] Work Phone: Comment on above: PATIENT NOT FASTINGP ERFORMED BY: CB [facility] Ckbkoj5102 [address] RoadD[address] [place] [id number] RBC (Bld) [#/Vol] 4.36 10*6/uL Normal 3.77-5.28 [facility]pr [facility] Internal Medicine; [facility] Work Phone: Comment on above: PATIENT NOT FASTINGP ERFORMED BY: CB [facility] Mvkmjz6742 [address] RoadDublin [place] [id number] WBC (Bld) [#/Vol] 4.6 10*3/uL Normal 4.0-10.5 Compre [facility]; [facility] Work Phone: Comment on above: PATIENT NOT FASTINGP ERFORMED BY: CB [facility] Gismxm6949 [address] RoadDublin [place] [id number] Renal function Panel ([id number]) Ordered By: Engine Watchman on 09-14-2012 Albumin [Mass/Vol] 4.3 g/dL Normal 3.6-4.8 [facility] Internal [facility]; [facility] Work Phone: Comment on above: PATIENT NOT FASTINGP ERFORMED BY: LASHON [facility] Mpxdeb4962 [address] [facility] [id number] Information: [id number] Calcium [Mass/Vol] 9.3 mg/dL Normal 8.6-10.2 [facility] Internal [facility]; [facility] Work Phone: Comment on above: PATIENT NOT FASTINGP ERFORMED BY: LASHON [facility] Hfwsqv4239 [address] [facility] [id number] Information: [id number] Chloride [Moles/Vol] 103 mmol/L Normal 97-108 [facility]; [facility] Work Phone: Comment on above: PATIENT NOT FASTINGP ERFORMED BY: CB [facility] Tgviti6249 [facility] [id number] Information: [id number] CO2 [Moles/Vol] 24 mmol/L Normal 19-28 [facility] Internal Medicine; [facility] Work Phone: Comment on above: PATIENT NOT FASTINGP ERFORMED BY: [facility] Oepano8822 [facility] [id number] Information: [id number] Creatinine [Mass/Vol] 0.65 mg/dL Normal 0.57-1.00 [facility]; [facility] Work Phone: Comment on above: PATIENT NOT FASTINGP ERFORMED BY: [facility] Ywhajr9011 [facility] [id number] Information: [id number] GFR/1.73 sq M.predicted among blacks CKD-EPI (S/P/Bld) [Vol rate/Area] 112 mL/min/1.73 Normal [facility]; [facility] Work Phone: Comment on above: PATIENT NOT FASTINGP ERFORMED BY: [facility] Zjgxbx2657 [facility] [id number] Information: [id number] GFR/1.73 sq M.predicted among non-blacks CKD-EPI (S/P/Bld) [Vol rate/Area] 97 mL/min/1.73 Normal [facility]; [facility] Work Phone: Comment on above: PATIENT NOT FASTINGP ERFORMED BY: [place] 8160170 [facility] [id number] Information: [id number] Glucose [Mass/Vol] 85 mg/dL Normal 65-99 [facility]; [facility] Work Phone: Comment on above: PATIENT NOT FASTINGP ERFORMED BY: [address] [id number] Information: [id number] Phosphate [Mass/Vol] 3.8 mg/dL Normal 2.5-4.5 [facility]; [facility] Work Phone: Comment on above: PATIENT NOT FASTINGP ERFORMED BY: [facility] Snqxiy4321 [facility] [id number] Information: [id number] Potassium [Moles/Vol] 4.3 mmol/L Normal 3.5-5.2 [facility]; [facility] Work Phone: Comment on above: PATIENT NOT FASTINGP ERFORMED BY: [place] 8160170 [facility] [id number] Information: [id number] Sodium [Moles/Vol] 142 mmol/L Normal 134-144 [facility]; [facility] Work Phone: Comment on above: PATIENT NOT FASTINGP ERFORMED BY: [facility]6370 [facility] [id number] Information: [id number] Urea nitrogen [Mass/Vol] 12 mg/dL Normal 8-27 [facility]; [facility] Work Phone: Comment on above: PATIENT NOT FASTINGP ERFORMED BY: LASHON LabColayla Hndalt8193 [address] RoadDublin [place] [id number] Information: [id number] Urea nitrogen/Creatinin e [Mass ratio] 18 mg/mg Normal 11-26 [facility]; [facility] Work Phone: Comment on above: PATIENT NOT FASTINGP ERFORMED BY: CB [facility] Shsztc0691 [address] Roadblin [place] [id number] Information: [id number] TSH (07377)Ordered By: Fred m Hardening Machine Operator on 09-14-2012 TSH Qn 1.360 {uIU/mL} Normal 0.450-4.500 [facility] Internal Medicine; [facility] Work Phone: Comment on above: PATIENT NOT FASTINGP ERFORMED BY: LASHON [facility] Iqkvxd1681 [address] [place] [facility] [id number] Amylase (95356)Ordered By: S ystem Hardening Machine Operator on 03-09-2012 Amylase [Catalytic activity/Vol] 94 U/L Normal 31-124 [facility]; [facility] Work Phone: Comment on above: PATIENT WAS FASTINGP ERFORMED BY: LASHON [facility] Jvgrcm7711 [address] Roadblin [place] [id number] CBC WITH MANUAL DIFF (81425) Ordered By: Engine Watchman on 03-09-2012 Basophils (Bld) [#/Vol] 0.1 10*3/uL Normal 0.0-0.2 [facility]; [facility] Work Phone: Comment on above: PATIENT WAS FASTINGP ERFORMED BY: LASHON [facility] Vljwiq7640 Thompson RoadDublin [place] [id number] Information: [id number] Basophils/100 WBC (Bld) 1 % Normal 0-3 [facility]; [facility] Work Phone: Comment on above: PATIENT WAS FASTINGP ERFORMED BY: CB [facility] Eypegu6011 Thompson RoadDublin [place] [id number] Information: [id number] Eosinophils (Bld) [#/Vol] 0.1 10*3/uL Normal 0.0-0.4 [facility]; [facility] Work Phone: Comment on above: PATIENT WAS FASTINGP ERFORMED BY: [address] [id number] Information: [id number] Eosinophils/100 WBC (Bld) 2 % Normal 0-7 [facility]; [facility] Work Phone: Comment on above: PATIENT WAS FASTINGP ERFORMED BY: [address] [id number] Information: [id number] Erythrocyte distribution width (RBC) [Ratio] 13.6 % Normal 12.3-15.4 [facility]; [facility] Work Phone: Comment on above: PATIENT WAS FASTINGP ERFORMED BY: [address] [id number] Information: [id number] Hematocrit (Bld) [Volume fraction] 40.2 % Normal 34.0-46.6 [facility]; [facility] Work Phone: Comment on above: PATIENT WAS FASTINGP ERFORMED BY: [address] [id number] Information: [id number],[id number] Hemoglobin (Bld) [Mass/Vol] 13.3 g/dL Normal 11.1-15.9 [facility]; [facility] Work Phone: Comment on above: PATIENT WAS FASTINGP ERFORMED BY: [address] [id number] Information: [id number],[id number] Immature granulocytes (Bld) [#/Vol] 0.0 10*3/uL Normal 0.0-0.1 [facility]; [facility] Work Phone: Comment on above: PATIENT WAS FASTINGP ERFORMED BY: [facility]6[address] [facility] [id number] Information: [id number],[id number] Immature granulocytes/100 WBC (Bld) 0 % Normal 0-2 [facility]; [facility] Work Phone: Comment on above: PATIENT WAS FASTINGP ERFORMED BY: [address] [id number] Information: [id number],[id number] Lymphocytes (Bld) [#/Vol] 1.5 10*3/uL Normal 0.7-4.5 [facility]; [facility] Work Phone: Comment on above: PATIENT WAS FASTINGP ERFORMED BY: [address] [id number] Information: [id number],[id number] Lymphocytes/100 WBC (Bld) 32 % Normal 14-46 [facility]; [facility] Work Phone: Comment on above: PATIENT WAS FASTINGP ERFORMED BY: [address] [id number] Information: [id number],[id number] MCH (RBC) [Entitic mass] 30.0 pg Normal 26.6-33.0 [facility]; [facility] Work Phone: Comment on above: PATIENT WAS FASTINGP ERFORMED BY: [address] [id number] Information: [id number] MCHC (RBC) [Mass/Vol] 33.1 g/dL Normal 31.5-35.7 [facility]; [facility] Work Phone: Comment on above: PATIENT WAS FASTINGP ERFORMED BY: [facility]6[address] [facility] [id number] Information: [id number] MCV (RBC) [Entitic vol] 91 fL Normal 79-97 [facility]; [facility] Work Phone: Comment on above: PATIENT WAS FASTINGP ERFORMED BY: LASHON Bowman6[address] [facility] [id number] Information: [id number] Monocytes (Bld) [#/Vol] 0.5 10*3/uL Normal 0.1-1.0 [facility]; [facility] Work Phone: Comment on above: PATIENT WAS FASTINGP ERFORMED BY: LASHON Arnold Mlieon5492 [facility] [id number] Information: [id number],[id number] Monocytes/100 WBC (Bld) 10 % Normal 4-13 [facility]; [facility] Work Phone: Comment on above: PATIENT WAS FASTINGP ERFORMED BY: LASHON Mimslin6370 [facility] [id number] Information: [id number],[id number] Neutrophils (Bld) [#/Vol] 2.6 10*3/uL Normal 1.8-7.8 [facility]; [facility] Work Phone: Comment on above: PATIENT WAS FASTINGP ERFORMED BY: LASHON Bowman6370 [facility] [id number] Information: [id number] Neutrophils/100 WBC (Bld) 55 % Normal 40-74 [facility] Work Phone: Comment on above: PATIENT WAS FASTINGP ERFORMED BY: LASHON [facility] Rudfcj4350 [facility] [id number] Information: [id number] Platelets (Bld) [#/Vol] 165 10*3/uL Normal 140-415 [facility] Work Phone: Comment on above: PATIENT WAS FASTINGP ERFORMED BY: LASHON Mimslin6370 [facility] [id number] Information: [id number],[id number] RBC (Bld) [#/Vol] 4.44 10*6/uL Normal 3.77-5.28 [facility]; [facility] Work Phone: Comment on above: PATIENT WAS FASTINGP ERFORMED BY: LASHON Bowman[address] [facility] [place] [id number] Information: [id number] WBC (Bld) [#/Vol] 4.8 10*3/uL Normal 4.0-10.5 [facility]; [facility] Work Phone: Comment on above: PATIENT WAS FASTINGP ERFORMED BY: LASHON Mimslin[address] RoadColumbus Regional Healthcare Systemin [place] [id number] Information: [id number] LIPID PANEL (79544)Ordered B y: Engine Watchman on 03-09-2012 Cholesterol [Mass/Vol] 195 mg/dL Normal 100-199 [facility]; [facility] Work Phone: Comment on above: PATIENT WAS FASTINGP ERFORMED BY: LASHON Bowman[address] [facility] [id number] Cholesterol in HDL [Mass/Vol] 106 mg/dL Normal [facility]; [facility] Work Phone: Comment on above: According to ATP-III Guidelines, HDL-C >59 mg/dL is considered anegative risk factor for CHD. PATIENT WAS FASTINGP ERFORMED BY: LASHON LabShasha MimsCnyjop[address] [facility] [id number] Cholesterol in LDL [Mass/Vol] 76 mg/dL Normal 0-99 [facility]; [facility] Work Phone: Comment on above: PATIENT WAS FASTINGP ERFORMED BY: LASHON [facility] Nkcakc[address] [facility]in [place] [id number] Cholesterol in LDL/Cholesterol in HDL [Mass ratio] 0.7 {ratio_units} Normal 0.0-3.2 [facility]; [facility] Work Phone: Comment on above: PATIENT WAS FASTINGP ERFORMED BY: LASHON [facility] Gejpjr5188 Thompson RoadDublin [place] [id number] Cholesterol in VLDL [Mass/Vol] 13 mg/dL Normal 5-40 [facility]; [facility] Work Phone: Comment on above: PATIENT WAS FASTINGP ERFORMED BY: LASHON LabColayla Npguhu3069 [address] RoadDublin [place] [id number] Triglyceride [Mass/Vol] 63 mg/dL Normal 0-149 [facility]; [facility] Work Phone: Comment on above: PATIENT WAS FASTINGP ERFORMED BY: LASHON [facility] Qhtghn8317 [address] RoadDublin [place] [id number] Lipase (47914)Ordered By: Sy stem Hardening Machine Operator on 03-09-2012 Lipase [Catalytic activity/Vol] 34 U/L Normal 0-59 [facility]; [facility] Work Phone: Comment on above: PATIENT WAS FASTINGP ERFORMED BY: LASHON LabColayla Ojrlif25[address] RoadDublin [place] [id number] METABOLIC PANEL, COMPREHENSI VE (52687)Ordered By: Engine Watchman on 03-09-2012 Albumin [Mass/Vol] 4.3 g/dL Normal 3.6-4.8 [facility]; [facility] Work Phone: Comment on above: PATIENT WAS FASTINGP ERFORMED BY: LASHON LabColayla Kfikxe23[address] RoadDublin [place] [id number] Albumin/Globulin [Mass ratio] 1.9 {ratio} Normal 1.1-2.5 [facility]; [facility] Work Phone: Comment on above: PATIENT WAS FASTINGP ERFORMED BY: LASHON [facility] Jlafiy0421 [address] RoadDublin [place] [id number] ALP [Catalytic activity/Vol] 71 U/L Normal 25-165 [facility]; [facility] Work Phone: Comment on above: PATIENT WAS FASTINGP ERFORMED BY: LASHON [facility] Blaxex5419 [address] RoadDublin [place] [id number] ALT [Catalytic activity/Vol] 25 U/L Normal 0-32 [facility]; [facility] Work Phone: Comment on above: PATIENT WAS FASTINGP ERFORMED BY: LASHON [facility] Fksqsq3064 Thompson RoadDublin [place] [id number] AST [Catalytic activity/Vol] 26 U/L Normal 0-40 [facility]; [facility] Work Phone: Comment on above: PATIENT WAS FASTINGP ERFORMED BY: CB [facility] Hmqswb9345 [address] Roadblin [place] [id number] Bilirubin [Mass/Vol] 0.6 mg/dL Normal 0.0-1.2 [facility]; [facility] Work Phone: Comment on above: PATIENT WAS FASTINGP ERFORMED BY: CB [facility] Tvvykx9560 [address] RoadColumbus Regional Healthcare Systemin [place] [id number] Calcium [Mass/Vol] 9.6 mg/dL Normal 8.6-10.2 [facility]; [facility] Work Phone: Comment on above: PATIENT WAS FASTINGP ERFORMED BY: [facility] Bfdqln1919 Thompson RoadColumbus Regional Healthcare Systemin [place] [id number] Chloride [Moles/Vol] 104 mmol/L Normal 97-108 [facility]; [facility] Work Phone: Comment on above: PATIENT WAS FASTINGP ERFORMED BY: CB [facility] Bzslco5926 [address] Roadblin [place] [id number] CO2 [Moles/Vol] 26 mmol/L Normal 20-32 [facility]; [facility] Work Phone: Comment on above: PATIENT WAS FASTINGP ERFORMED BY: CB [facility] Yagkjw2397 [facility]Critical access hospital [id number] Creatinine [Mass/Vol] 0.76 mg/dL Normal 0.57-1.00 [facility]; [facility] Work Phone: Comment on above: PATIENT WAS FASTINGP ERFORMED BY: CB [facility] Kjivua6410 [address] RoadColumbus Regional Healthcare Systemin [place] [id number] GFR/1.73 sq M.predicted among blacks CKD-EPI (S/P/Bld) [Vol rate/Area] 99 mL/min/1.73 Normal [facility]; [facility] Work Phone: Comment on above: PATIENT WAS FASTINGP ERFORMED BY: [facility] Lqbrly2203 [address] RoadDublin [place] [id number] GFR/1.73 sq M.predicted among non-blacks CKD-EPI (S/P/Bld) [Vol rate/Area] 86 mL/min/1.73 Normal [facility]; [facility] Work Phone: Comment on above: PATIENT WAS FASTINGP ERFORMED BY: [facility] Qfxkvh5803 [address] RoadDublin [place] [id number] Globulin (S) [Mass/Vol] 2.3 g/dL Normal 1.5-4.5 [facility]; [facility] Work Phone: Comment on above: PATIENT WAS FASTINGP ERFORMED BY: [facility] Ovatek5079 [address] RoadDublin [place] [id number] Glucose [Mass/Vol] 80 mg/dL Normal 65-99 [facility]; [facility] Work Phone: Comment on above: PATIENT WAS FASTINGP ERFORMED BY: Lab[facility] Gaafnt8915 [address] RoadDublin [place] [id number] Potassium [Moles/Vol] 4.2 mmol/L Normal 3.5-5.2 [facility]; [facility] Work Phone: Comment on above: PATIENT WAS FASTINGP ERFORMED BY: [facility] Ejwqvt[address] [facility] HospitalDublin [place] [id number] Protein [Mass/Vol] 6.6 g/dL Normal 6.0-8.5 [facility]; [facility] Work Phone: Comment on above: PATIENT WAS FASTINGP ERFORMED BY: [facility] Mhkzld7447 [address] RoadDublin [place] [id number] Sodium [Moles/Vol] 144 mmol/L Normal 134-144 [facility]; [facility] Work Phone: Comment on above: PATIENT WAS FASTINGP ERFORMED BY: [facility] Tsyerk2484 [address] RoadDublin [place] [id number] Urea nitrogen [Mass/Vol] 14 mg/dL Normal 8-27 [facility]; [facility] Work Phone: Comment on above: PATIENT WAS FASTINGP ERFORMED BY: LASHON Bowman6[address] [facility] [id number] Urea nitrogen/Creatinin e [Mass ratio] 18 mg/mg Normal 11-26 [facility]; [facility] Work Phone: Comment on above: PATIENT WAS FASTINGP ERFORMED BY: LASHON Arnold Cgbsac8274 [facility] [id number] CBC WITH MANUAL DIFF (10225) Ordered By: Engine Watchman on 06-03-2010 Basophils (Bld) [#/Vol] 0.1 10*3/uL Normal 0.0-0.2 [facility]; [facility] Work Phone: Comment on above: PATIENT WAS FASTINGP ERFORMED BY: LASHON Arnold Dpqpub9881 [facility] [id number] Information: [id number] Basophils/100 WBC (Bld) 1 % Normal 0-3 [facility]; [facility] Work Phone: Comment on above: PATIENT WAS FASTINGP ERFORMED BY: LASHON Arnold Rfjkro2813 [facility] [id number] Information: [id number] Eosinophils (Bld) [#/Vol] 0.3 10*3/uL Normal 0.0-0.4 [facility]; [facility] Work Phone: Comment on above: PATIENT WAS FASTINGP ERFORMED BY: LASHON MadrigalAudrain Medical Center Woxzly8679 [facility] [id number] Information: [id number] Eosinophils/100 WBC (Bld) 7 % Normal 0-7 [facility]; [facility] Work Phone: Comment on above: PATIENT WAS FASTINGP ERFORMED BY: LASHON Arnold Nbcdbz4909 [facility] [id number] Information: [id number] Erythrocyte distribution width (RBC) [Ratio] 12.9 % Normal 11.7-15.0 [facility]; [facility] Work Phone: Comment on above: PATIENT WAS FASTINGP ERFORMED BY: LASHON Bowman6370 [facility] [id number] Information: [id number],[id number] Hematocrit (Bld) [Volume fraction] 38.6 % Normal 34.0-44.0 [facility]; [facility] Work Phone: Comment on above: PATIENT WAS FASTINGP ERFORMED BY: LASHON MadrigalAudrain Medical Center Qpzyiq26[address] [id number] Information: 334361,[id number] Hemoglobin (Bld) [Mass/Vol] 13.0 g/dL Normal 11.5-15.0 [facility]; [facility] Work Phone: Comment on above: PATIENT WAS FASTINGP ERFORMED BY: LASHON Arnold Wuszje9[address] [id number] Information: 417054,[id number] Immature granulocytes (Bld) [#/Vol] 0.0 10*3/uL Normal 0.0-0.1 [facility]; [facility] Work Phone: Comment on above: PATIENT WAS FASTINGP ERFORMED BY: LASHON Arnold Fyvxab5345 [facility] [id number] Information: 942776,[id number] Immature granulocytes/100 WBC (Bld) 0 % Normal 0-1 [facility]; [facility] Work Phone: Comment on above: PATIENT WAS FASTINGP ERFORMED BY: [place] 8160170 [facility] [id number] Information: [id number] Lymphocytes (Bld) [#/Vol] 1.7 10*3/uL Normal 0.7-4.5 [facility]; [facility] Work Phone: Comment on above: PATIENT WAS FASTINGP ERFORMED BY: [place] 8160170 [facility] [id number] Information: [id number] Lymphocytes/100 WBC (Bld) 38 % Normal 14-46 [facility]; [facility] Work Phone: Comment on above: PATIENT WAS FASTINGP ERFORMED BY: LASHON Mimslin6370 [facility] [id number] Information: [id number] MCH (RBC) [Entitic mass] 30.9 pg Normal 27.0-34.0 [facility]; [facility] Work Phone: Comment on above: PATIENT WAS FASTINGP ERFORMED BY: [address] [id number] Information: [id number],[id number] MCHC (RBC) [Mass/Vol] 33.7 g/dL Normal 32.0-36.0 [facility]; [facility] Work Phone: Comment on above: PATIENT WAS FASTINGP ERFORMED BY: [address] [id number] Information: 458781,[id number] MCV (RBC) [Entitic vol] 92 fL Normal 80-98 [facility]; [facility] Work Phone: Comment on above: PATIENT WAS FASTINGP ERFORMED BY: LASHON [address] [id number] Information: [id number],[id number] Monocytes (Bld) [#/Vol] 0.5 10*3/uL Normal 0.1-1.0 [facility]; [facility] Work Phone: Comment on above: PATIENT WAS FASTINGP ERFORMED BY: [place] 8160170 [facility] [id number] Information: [id number] Monocytes/100 WBC (Bld) 12 % Normal 4-13 [facility]; [facility] Work Phone: Comment on above: PATIENT WAS FASTINGP ERFORMED BY: [address] [id number] Information: [id number],[id number] Neutrophils (Bld) [#/Vol] 1.8 10*3/uL Normal 1.8-7.8 [facility]; [facility] Work Phone: Comment on above: PATIENT WAS FASTINGP ERFORMED BY: LASHON Anusha Bowman6370 [facility] [id number] Information: [id number] Neutrophils/100 WBC (Bld) 42 % Normal 40-74 [facility]; [facility] Work Phone: Comment on above: PATIENT WAS FASTINGP ERFORMED BY: LASHON RohanAudrain Medical Center Hiirhw6212 [facility] [id number] Information: [id number],[id number] Platelets (Bld) [#/Vol] 213 10*3/uL Normal 140-415 [facility]; [facility] Work Phone: Comment on above: PATIENT WAS FASTINGP ERFORMED BY: LASHON Lan Abtful6788 [facility] [id number] Information: [id number],[id number] RBC (Bld) [#/Vol] 4.21 10*6/uL Normal 3.80-5.10 [facility]; [facility] Work Phone: Comment on above: PATIENT WAS FASTINGP ERFORMED BY: LASHON RohanAudrain Medical Center Hoftrb0654 [facility] [id number] Information: [id number] WBC (Bld) [#/Vol] 4.3 10*3/uL Normal 4.0-10.5 Compre [facility]; [facility] Work Phone: Comment on above: PATIENT WAS FASTINGP ERFORMED BY: LASHON RohanAudrain Medical Center Zqcmms9363 [facility] [id number] Information: [id number] LIPID PANEL (24144)Ordered B y: Engine Watchman on 06-03-2010 Cholesterol [Mass/Vol] 188 mg/dL Normal 100-199 [facility]; [facility] Work Phone: Comment on above: PATIENT WAS FASTINGP ERFORMED BY: LASHON [facility] Lgvkiw2499 [address] RoadDublin [place] [id number] Cholesterol in HDL [Mass/Vol] 110 mg/dL Normal [facility]; [facility] Work Phone: Comment on above: According to ATP-III Guidelines, HDL-C >59 mg/dL is considered anegative risk factor for CHD. PATIENT WAS FASTINGP ERFORMED BY: CB [facility] Pxejqq2182 [address] RoadDublin [place] [id number] Cholesterol in LDL [Mass/Vol] 70 mg/dL Normal 0-99 [facility]; [facility] Work Phone: Comment on above: PATIENT WAS FASTINGP ERFORMED BY: LASHON [facility] Ajoijk8597 Thompson RoadColumbus Regional Healthcare Systemin [place] [id number] Cholesterol in LDL/Cholesterol in HDL [Mass ratio] 0.6 {ratio_units} Normal 0.0-3.2 [facility]; [facility] Work Phone: Comment on above: PATIENT WAS FASTINGP ERFORMED BY: CB [facility] Yqjrqn5647 [address] RoadColumbus Regional Healthcare Systemin [place] [id number] Cholesterol in VLDL [Mass/Vol] 8 mg/dL Normal 5-40 [facility]; [facility] Work Phone: Comment on above: PATIENT WAS FASTINGP ERFORMED BY: CB [facility] Ypspwa[address] [facility]blin [place] [id number] Triglyceride [Mass/Vol] 42 mg/dL Normal 0-149 [facility]; [facility] Work Phone: Comment on above: PATIENT WAS FASTINGP ERFORMED BY: CB [facility] Ipbpqf4701 [address] RoadDublin [place] [id number] METABOLIC PANEL, COMPREHENSI VE (39764)Ordered By: Engine Watchman on 06-03-2010 Albumin [Mass/Vol] 4.2 g/dL Normal 3.5-5.5 [facility]; [facility] Work Phone: Comment on above: PATIENT WAS FASTINGP ERFORMED BY: CB [facility] Nlvuty1563 [address] RoadDublin [place] [id number] Albumin/Globulin [Mass ratio] 1.8 {ratio} Normal 1.1-2.5 [facility]; [facility] Work Phone: Comment on above: PATIENT WAS FASTINGP ERFORMED BY: LASHON [facility] Kepmtv2669 [address] RoadDublin [place] [id number] ALP [Catalytic activity/Vol] 90 U/L Normal 25-150 [facility]; [facility] Work Phone: Comment on above: PATIENT WAS FASTINGP ERFORMED BY: CB [facility] Tclvaa2337 [address] RoadDublin [place] [id number] ALT [Catalytic activity/Vol] 33 U/L Normal 0-40 [facility]; [facility] Work Phone: Comment on above: PATIENT WAS FASTINGP ERFORMED BY: LASHON [facility] Dhoctm3720 [address] RoadDublin [place] [id number] AST [Catalytic activity/Vol] 35 U/L Normal 0-40 [facility]; [facility] Work Phone: Comment on above: PATIENT WAS FASTINGP ERFORMED BY: LASHON [facility] Vmlwrg9059 [address] RoadDublin [place] [id number] Bilirubin [Mass/Vol] 0.5 mg/dL Normal 0.0-1.2 [facility]; [facility] Work Phone: Comment on above: PATIENT WAS FASTINGP ERFORMED BY: LASHON [facility] Emlhoa0873 [address] RoadDublin [place] [id number] Calcium [Mass/Vol] 9.5 mg/dL Normal 8.7-10.2 [facility]; [facility] Work Phone: Comment on above: PATIENT WAS FASTINGP ERFORMED BY: CB [facility] Xzvzqt3884 [address] RoadDublin [place] [id number] Chloride [Moles/Vol] 104 mmol/L Normal 97-108 [facility]; [facility] Work Phone: Comment on above: PATIENT WAS FASTINGP ERFORMED BY: CB [facility] Pyjwaq5109 [address] RoadDublin [place] [id number] CO2 [Moles/Vol] 27 mmol/L Normal 20-32 [facility]; [facility] Work Phone: Comment on above: PATIENT WAS FASTINGP ERFORMED BY: [facility] Fciszz9868 [address] [facility] [id number] Creatinine [Mass/Vol] 0.76 mg/dL Normal 0.57-1.00 [facility]; [facility] Work Phone: Comment on above: PATIENT WAS FASTINGP ERFORMED BY: [facility] Iakyyg8473 [facility] [id number] GFR/1.73 sq M.predicted among blacks MDRD (S/P/Bld) [Vol rate/Area] 100 mL/min/{1.73_m2} Normal Comprehensi Internal Medicine; [facility] Work Phone: Comment on above: Note: A persistent e GFR <60 mL/min/1.73 m2 (3 months or more) mayindicate chronic kidney disease. An eGFR >59 mL/min/1.73 m2 with anelevated urine protein also may indicate chronic kidney disease.Calculated using CKD-EPI formula. PATIENT WAS FASTINGP ERFORMED BY: [facility] Wwykkf7509 [facility] [id number] GFR/1.73 sq M.predicted among non-blacks CKD-EPI (S/P/Bld) [Vol rate/Area] 87 mL/min/1.73 Normal [facility]; [facility] Work Phone: Comment on above: PATIENT WAS FASTINGP ERFORMED BY: [facility] [id number] [facility] [id number] Globulin (S) [Mass/Vol] 2.3 g/dL Normal 1.5-4.5 [facility]; [facility] Work Phone: Comment on above: PATIENT WAS FASTINGP ERFORMED BY: CB [facility] [id number] [facility] [place] [id number] Glucose [Mass/Vol] 81 mg/dL Normal 65-99 [facility]; [facility] Work Phone: Comment on above: PATIENT WAS FASTINGP ERFORMED BY: CB [facility] [id number] [address]Dublin [place] [id number] Potassium [Moles/Vol] 3.9 mmol/L Normal 3.5-5.2 [facility]; [facility] Work Phone: Comment on above: PATIENT WAS FASTINGP ERFORMED BY: CB [facility] [id number] [address]Dublin [place] [id number] Protein [Mass/Vol] 6.5 g/dL Normal 6.0-8.5 [facility]; [facility] Work Phone: Comment on above: PATIENT WAS FASTINGP ERFORMED BY: CB [facility] [id number] [address] RoadDublin [place] [id number] Sodium [Moles/Vol] 145 mmol/L Normal 135-145 [facility]; [facility] Work Phone: Comment on above: PATIENT WAS FASTINGP ERFORMED BY: CB [facility] [id number] [address] RoadDublin [place] [id number] Urea nitrogen [Mass/Vol] 10 mg/dL Normal 6-24 [facility]; [facility] Work Phone: Comment on above: PATIENT WAS FASTINGP ERFORMED BY: CB [facility] [id number] [address] RoadDublin [place] [id number] Urea nitrogen/Creatinin e [Mass ratio] 13 mg/mg Normal 9-23 [facility]; [facility] Work Phone: Comment on above: PATIENT WAS FASTINGP ERFORMED BY: CB [facility] [id number] [address] [place] [id number] TSH ([id number])Ordered By: Fred Dunn on 06-03-2010 TSH Qn 0.897 {uIU/mL} Normal 0.450-4.500 [facility]; [facility] Work Phone: Comment on above: PATIENT WAS FASTINGP ERFORMED BY: CB [facility] [id number] [address] [place] [id number] Vital Signs Date Time Vital Sign Value Performing Clinician Facility 09-04-2022 07:56-0400 Body height 167.64 cm [facility]; [facility] Work Phone: 09-04-2022 07:56-0400 Body mass index (BMI) [Ratio] 22.84 kg/m2 [facility]; [facility] Work Phone: 09-04-2022 07:56-0400 Body surface area Derived from formula 1.73 m2 [facility]; [facility] Work Phone: 09-04-2022 07:56-0400 Body temperature 96 [degF] [facility]; [facility] Work Phone: 09-04-2022 07:56-0400 Body weight 64.18 kg [facility]; [facility] Work Phone: 09-04-2022 07:56-0400 Diastolic blood pressure 78 mm[Hg] [facility]; [facility] Work Phone: Comment on above: Patient Position: Sitting; Cuff Location : Left Arm; Cuff Size: Standard 09-04-2022 07:56-0400 Heart rate 79 /min [facility]; [facility] Work Phone: Comment on above: Pattern: Regular 09-04-2022 07:56-0400 Respiratory rate 16 /min [facility]; [facility] Work Phone: Comment on above: Pattern: Unlabored 09-04-2022 07:56-0400 SaO2% (BldA) [Mass fraction] 98 % [facility]; [facility] Work Phone: Comment on above: Room air 09-04-2022 07:56-0400 Systolic blood pressure 112 mm[Hg] [facility]; [facility] Work Phone: Comment on above: Patient Position: Sitting; Cuff Location : Left Arm; Cuff Size: Standard 08-13-2021 09:38-0400 Body height 172.[address] Brittany Dougherty Work Phone: [facility] Work Phone: 08-13-2021 09:38-0400 Body mass index (BMI) [Ratio] 20.9 kg/m2 Dr. Brittany Dougherty Work Phone: [facility] Work Phone: 08-13-2021 09:38-0400 Body weight 62.[address] Brittany Dougherty Work Phone: [facility] Work Phone: 08-13-2021 09:38-0400 Diastolic blood pressure 70 mm[Hg] Dr. Brittany Dougherty Work Phone: [facility] Work Phone: 08-13-2021 09:38-0400 Systolic blood pressure 120 mm[Hg] Dr. Brittany Dougherty Work Phone: [facility] Work Phone: 02-20-2021 11:33-0500 Body height 167.64 cm Macey Lopezius [facility]; [facility] Work Phone: Comment on above: no vs taken as this is phone encounter d ue to covid 02-20-2021 11:33-0500 Body mass index (BMI) [Ratio] 21.99 kg/m2 Macey Gravius [facility]; [facility] Work Phone: Comment on above: no vs taken as this is phone encounter d ue to covid 02-20-2021 11:33-0500 Body surface area Derived from formula 1.7 m2 Macey Gravius [facility]; [facility] Work Phone: Comment on above: no vs taken as this is phone encounter d ue to covid 02-20-2021 11:33-0500 Body weight 61.8 kg Macey Vargas [employer] [facility]; [facility] Work Phone: Comment on above: no vs taken as this is phone encounter d kiki to camille 12-17-2020 13:19-0500 Body height 167.64 cm Geno Slarb [employer] [facility]; [facility] Work Phone: Comment on above: pt did not report 12-17-2020 13:19-0500 Body mass index (BMI) [Ratio] 21.99 kg/m2 Geno Slarb [employer] [facility]; [facility] Work Phone: Comment on above: pt did not report 12-17-2020 13:19-0500 Body surface area Derived from formula 1.7 m2 Geno Slarb [employer] [facility]; [facility] Work Phone: Comment on above: pt did not report 12-17-2020 13:19-0500 Body weight 61.8 kg Geno Slarb [employer] [facility]; [facility] Work Phone: Comment on above: pt did not report 11-15-2020 07:02-0400 Body height 167.64 cm Karen Segundo [employer] [facility]; [facility] Work Phone: 11-15-2020 07:02-0400 Body mass index (BMI) [Ratio] 21.99 kg/m2 Karen Segundo [employer] [facility]; [facility] Work Phone: 11-15-2020 07:02-0400 Body surface area Derived from formula 1.7 m2 Karen Segundo [employer] [facility]; [facility] Work Phone: 11-15-2020 07:02-0400 Body temperature 96.6 [degF] Karen Segundo [employer] [facility]; [facility] Work Phone: Comment on above: Method: Temporal 11-15-2020 07:02-0400 Body weight 61.8 kg Karen Segundo [employer] [facility]; [facility] Work Phone: 11-15-2020 07:02-0400 Diastolic blood pressure 82 mm[Hg] Karen Raymond [employer] [facility]; [facility] Work Phone: Comment on above: Patient Position: Sitting; Cuff Location : Left Arm; Cuff Size: Standard 11-15-2020 07:02-0400 Heart rate 82 /min Karen Raymond LPN [facility]; [facility] Work Phone: Comment on above: Pattern: Regular 11-15-2020 07:02-0400 Respiratory rate 16 /min Karen Raymond [employer] [facility]; [facility] Work Phone: Comment on above: Pattern: Unlabored 11-15-2020 07:02-0400 SaO2% (BldA) [Mass fraction] 98 % Karen Raymond LPN [facility]; [facility] Work Phone: Comment on above: Room air 11-15-2020 07:02-0400 Systolic blood pressure 124 mm[Hg] Karen Raymond [employer] [facility]; [facility] Work Phone: Comment on above: Patient Position: Sitting; Cuff Location : Left Arm; Cuff Size: Standard 10-31-2020 11:08-0400 Body height 167.64 cm Macey Vargas [facility]; [facility] Work Phone: 10-31-2020 11:08-0400 Body mass index (BMI) [Ratio] 21.95 kg/m2 Macey Vargas [facility]; [facility] Work Phone: 10-31-2020 11:08-0400 Body surface area Derived from formula 1.7 m2 Macey Vargas [facility]; [facility] Work Phone: 10-31-2020 11:08-0400 Body temperature 97.1 [degF] Macey Vargas [facility]; [facility] Work Phone: Comment on above: Method: Infrared 10-31-2020 11:08-0400 Body weight 61.69 kg Macey Vargas [facility]; [facility] Work Phone: 10-31-2020 11:08-0400 Diastolic blood pressure 80 mm[Hg] Macey Vargas [facility]; [facility] Work Phone: Comment on above: Patient Position: Sitting; Cuff Location : Left Arm; Cuff Size: Standard 10-31-2020 11:08-0400 Heart rate 73 /min Macey Vargas [facility]; [facility] Work Phone: Comment on above: Pattern: Regular 10-31-2020 11:08-0400 Respiratory rate 16 /min Macey Vargas [facility]; [facility] Work Phone: Comment on above: Pattern: Unlabored 10-31-2020 11:08-0400 SaO2% (BldA) [Mass fraction] 97 % Macey Vargas [facility]; [facility] Work Phone: Comment on above: Room air 10-31-2020 11:08-0400 Systolic blood pressure 110 mm[Hg] Macey Vargas [facility]; [facility] Work Phone: Comment on above: Patient Position: Sitting; Cuff Location : Left Arm; Cuff Size: Standard 05-24-2015 08:48-0400 Body height 167.64 cm Shirley Villagran RN [facility]; [facility] Work Phone: 05-24-2015 08:48-0400 Body mass index (BMI) [Ratio] 22.11 kg/m2 Shirley Villagran RN [facility]; [facility] Work Phone: 05-24-2015 08:48-0400 Body surface area Derived from formula 1.7 m2 Shirley Villagran RN [facility]; [facility] Work Phone: 05-24-2015 08:48-0400 Body weight 62.14 kg Shirley Villagran RN [facility]; [facility] Work Phone: 05-24-2015 08:48-0400 Diastolic blood pressure 80 mm[Hg] Shirley Villagran RN [facility]; [facility] Work Phone: Comment on above: Patient Position: Sitting; Cuff Location : Left Arm; Cuff Size: Large 05-24-2015 08:48-0400 Heart rate 96 /min Shirley Villagran RN [facility]; [facility] Work Phone: Comment on above: Pattern: Regular 05-24-2015 08:48-0400 Respiratory rate 18 /min Shirley Villagran RN [facility]; [facility] Work Phone: Comment on above: Pattern: Unlabored 05-24-2015 08:48-0400 SaO2% (BldA) [Mass fraction] 96 % Shirley Villagran RN [facility]; [facility] Work Phone: Comment on above: Room air 05-24-2015 08:48-0400 Systolic blood pressure 122 mm[Hg] Shirley Villagran RN [facility]; [facility] Work Phone: Comment on above: Patient Position: Sitting; Cuff Location : Left Arm; Cuff Size: Large 05-22-2015 08:25-0400 Body height 167.64 cm Fawn Gandhi RN [facility]; [facility] Work Phone: 05-22-2015 08:25-0400 Body mass index (BMI) [Ratio] 22.11 kg/m2 Fawn Gandhi RN [facility]; [facility] Work Phone: 05-22-2015 08:25-0400 Body surface area Derived from formula 1.7 m2 Fawn Gandhi RN [facility]; [facility] Work Phone: 05-22-2015 08:25-0400 Body temperature 96.8 [degF] Fawn Gandhi RN [facility]; [facility] Work Phone: Comment on above: Method: Temporal 05-22-2015 08:25-0400 Body weight 62.14 kg Fawn Gandhi RN [facility]; [facility] Work Phone: 05-22-2015 08:25-0400 Diastolic blood pressure 70 mm[Hg] Fawn Gandhi RN [facility]; [facility] Work Phone: Comment on above: Patient Position: Sitting; Cuff Location : Left Arm; Cuff Size: Standard 05-22-2015 08:25-0400 Heart rate 72 /min Fawn L Long RN [facility]; [facility] Work Phone: Comment on above: Pattern: Regular 05-22-2015 08:25-0400 Respiratory rate 16 /min Fawn Gandhi RN [facility]; [facility] Work Phone: Comment on above: Pattern: Unlabored 05-22-2015 08:25-0400 SaO2% (BldA) [Mass fraction] 97 % Fawn Gandhi RN [facility]; [facility] Work Phone: Comment on above: Room air 05-22-2015 08:25-0400 Systolic blood pressure 118 mm[Hg] Fawn Gandhi RN [facility]; [facility] Work Phone: Comment on above: Patient Position: Sitting; Cuff Location : Left Arm; Cuff Size: Standard 05-02-2015 07:51-0400 Body height 167.64 cm Fawn Gandhi RN [facility]; [facility] Work Phone: 05-02-2015 07:51-0400 Body mass index (BMI) [Ratio] 22.11 kg/m2 Fawn Gandhi RN [facility]; [facility] Work Phone: 05-02-2015 07:51-0400 Body surface area Derived from formula 1.7 m2 Fawn Gandhi RN [facility]; [facility] Work Phone: 05-02-2015 07:51-0400 Body temperature 97 [degF] Fawn Gandhi RN [facility]; [facility] Work Phone: Comment on above: Method: Temporal 05-02-2015 07:51-0400 Body weight 62.14 kg Fawn Gandhi RN [facility]; [facility] Work Phone: 05-02-2015 07:51-0400 Diastolic blood pressure 74 mm[Hg] Fawn Gandhi RN [facility]; [facility] Work Phone: Comment on above: Patient Position: Sitting; Cuff Location : Left Arm; Cuff Size: Standard 05-02-2015 07:51-0400 Heart rate 66 /min Fawn Gandhi RN [facility]; [facility] Work Phone: Comment on above: Pattern: Regular 05-02-2015 07:51-0400 Respiratory rate 16 /min Fawn Gandhi RN [facility]; [facility] Work Phone: Comment on above: Pattern: Unlabored 05-02-2015 07:51-0400 SaO2% (BldA) [Mass fraction] 97 % Fawn Gandhi RN [facility]; [facility] Work Phone: Comment on above: Room air 05-02-2015 07:51-0400 Systolic blood pressure 132 mm[Hg] Fawn Gandhi RN [facility]; [facility] Work Phone: Comment on above: Patient Position: Sitting; Cuff Location : Left Arm; Cuff Size: Standard 04-04-2015 08:31-0500 Body height 167.64 cm Fawn Gandhi RN [facility]; [facility] Work Phone: Comment on above: pain 6-9 depending on activity 04-04-2015 08:31-0500 Body mass index (BMI) [Ratio] 22.11 kg/m2 Fawn Betancourt [facility]; [facility] Work Phone: Comment on above: pain 6-9 depending on activity 04-04-2015 08:31-0500 Body surface area Derived from formula 1.7 m2 Fawn Gandhi RN [facility]; [facility] Work Phone: Comment on above: pain 6-9 depending on activity 04-04-2015 08:31-0500 Body temperature 97.3 [degF] Fawn Betnacourt [facility]; [facility] Work Phone: Comment on above: Method: Temporal pain 6-9 depending o n activity 04-04-2015 08:31-0500 Body weight 62.14 kg Fawn Gandhi RN [facility]; [facility] Work Phone: Comment on above: pain 6-9 depending on activity 04-04-2015 08:31-0500 Diastolic blood pressure 80 mm[Hg] Fawn Betancourt [facility]; [facility] Work Phone: Comment on above: Patient Position: Sitting; Cuff Location : Left Arm; Cuff Size: Standard pain 6-9 depending o n activity 04-04-2015 08:31-0500 Heart rate 78 /min Fawn Betancourt [facility]; [facility] Work Phone: Comment on above: Pattern: Regular pain 6-9 depending o n activity 04-04-2015 08:31-0500 Respiratory rate 16 /min Fawn Betancourt [facility]; [facility] Work Phone: Comment on above: Pattern: Unlabored pain 6-9 depending o n activity 04-04-2015 08:31-0500 SaO2% (BldA) [Mass fraction] 97 % Fawn Betancourt [facility]; [facility] Work Phone: Comment on above: Room air pain 6-9 depending o n activity 04-04-2015 08:31-0500 Systolic blood pressure 130 mm[Hg] Fawn Betancourt [facility]; [facility] Work Phone: Comment on above: Patient Position: Sitting; Cuff Location : Left Arm; Cuff Size: Standard pain 6-9 depending o n activity 03-21-2015 10:15-0500 Body height 167.64 cm Fawn Betancourt [facility]; [facility] Work Phone: 03-21-2015 10:15-0500 Body mass index (BMI) [Ratio] 21.95 kg/m2 Fawn Betancourt [facility]; [facility] Work Phone: 03-21-2015 10:15-0500 Body surface area Derived from formula 1.7 m2 Fawn Betancourt [facility]; [facility] Work Phone: 03-21-2015 10:15-0500 Body temperature 97.4 [degF] Fawn Betancourt [facility]; [facility] Work Phone: Comment on above: Method: Temporal 03-21-2015 10:15-0500 Body weight 61.69 kg Fawn Betancourt [facility]; [facility] Work Phone: 03-21-2015 10:15-0500 Diastolic blood pressure 74 mm[Hg] Fawn Gandhi RN [facility]; [facility] Work Phone: Comment on above: Patient Position: Sitting; Cuff Location : Left Arm; Cuff Size: Standard 03-21-2015 10:15-0500 Heart rate 89 /min Fawn Gandhi RN [facility]; [facility] Work Phone: Comment on above: Pattern: Regular 03-21-2015 10:15-0500 Respiratory rate 16 /min Fawn Gandhi RN [facility]; [facility] Work Phone: Comment on above: Pattern: Unlabored 03-21-2015 10:15-0500 SaO2% (BldA) [Mass fraction] 99 % Fawn Gandhi RN [facility]; [facility] Work Phone: Comment on above: Room air 03-21-2015 10:15-0500 Systolic blood pressure 116 mm[Hg] Fawn Gandhi RN [facility]; [facility] Work Phone: Comment on above: Patient Position: Sitting; Cuff Location : Left Arm; Cuff Size: Standard 02-13-2015 07:44-0500 Body height 167.64 cm Fawn Gandhi RN [facility]; [facility] Work Phone: 02-13-2015 07:44-0500 Body mass index (BMI) [Ratio] 21.95 kg/m2 Fawn Gandhi RN [facility]; [facility] Work Phone: 02-13-2015 07:44-0500 Body surface area Derived from formula 1.7 m2 Fawn Gandhi RN [facility]; [facility] Work Phone: 02-13-2015 07:44-0500 Body temperature 97.7 [degF] Fawn Gandhi RN [facility]; [facility] Work Phone: Comment on above: Method: Temporal 02-13-2015 07:44-0500 Body weight 61.69 kg Fawn Gandhi RN [facility]; [facility] Work Phone: 02-13-2015 07:44-0500 Diastolic blood pressure 74 mm[Hg] Fawn L Long RN [facility]; [facility] Work Phone: Comment on above: Patient Position: Sitting; Cuff Location : Left Arm; Cuff Size: Standard 02-13-2015 07:44-0500 Heart rate 65 /min Fawn Gandhi RN [facility]; [facility] Work Phone: Comment on above: Pattern: Regular 02-13-2015 07:44-0500 Respiratory rate 16 /min Fawn Gandhi RN [facility]; [facility] Work Phone: Comment on above: Pattern: Unlabored 02-13-2015 07:44-0500 SaO2% (BldA) [Mass fraction] 98 % Fawn Gandhi RN [facility]; [facility] Work Phone: Comment on above: Room air 02-13-2015 07:44-0500 Systolic blood pressure 122 mm[Hg] Fawn Gandhi RN [facility]; [facility] Work Phone: Comment on above: Patient Position: Sitting; Cuff Location : Left Arm; Cuff Size: Standard 10-11-2013 09:24-0400 Body height 167.64 cm PRATIMA Perez LPN [facility]; [facility] Work Phone: 10-11-2013 09:24-0400 Body mass index (BMI) [Ratio] 21.14 kg/m2 PRATIMA Perez LPN [facility]; [facility] Work Phone: 10-11-2013 09:24-0400 Body surface area Derived from formula 1.67 m2 PRATIMA Perez LPN [facility]; [facility] Work Phone: 10-11-2013 09:24-0400 Body temperature 97.6 [degF] PRATIMA Perez LPN [facility]; [facility] Work Phone: Comment on above: Method: Oral 10-11-2013 09:24-0400 Body weight 59.42 kg PRATIMA Perez LPN [facility]; [facility] Work Phone: 10-11-2013 09:24-0400 Diastolic blood pressure 74 mm[Hg] PRATIMA Perez LPN [facility]; [facility] Work Phone: Comment on above: Patient Position: Sitting; Cuff Location : Left Arm; Cuff Size: Standard 10-11-2013 09:24-0400 Heart rate 72 /min PRATIMA Perez LPN [facility]; [facility] Work Phone: Comment on above: Pattern: Regular 10-11-2013 09:24-0400 Respiratory rate 18 /min PRATIMA Perez LPN [facility]; [facility] Work Phone: Comment on above: Pattern: Unlabored 10-11-2013 09:24-0400 Systolic blood pressure 110 mm[Hg] PRATIMA Perez LPN [facility]; [facility] Work Phone: Comment on above: Patient Position: Sitting; Cuff Location : Left Arm; Cuff Size: Standard 05-17-2013 11:32-0400 Body height 167.64 cm Fawn Gandhi RN [facility]; [facility] Work Phone: 05-17-2013 11:32-0400 Body mass index (BMI) [Ratio] 20.82 kg/m2 Fawn Gandhi RN [facility]; [facility] Work Phone: 05-17-2013 11:32-0400 Body surface area Derived from formula 1.66 m2 Fawn Gandhi RN [facility]; [facility] Work Phone: 05-17-2013 11:32-0400 Body temperature 98 [degF] Fawn Gandhi RN [facility]; [facility] Work Phone: Comment on above: Method: Temporal 05-17-2013 11:32-0400 Body weight 58.51 kg Fawn Gandhi RN [facility]; [facility] Work Phone: 05-17-2013 11:32-0400 Diastolic blood pressure 72 mm[Hg] Fawn Gandhi RN [facility]; [facility] Work Phone: Comment on above: Patient Position: Sitting; Cuff Location : Left Arm; Cuff Size: Standard 05-17-2013 11:32-0400 Heart rate 78 /min Fawn Gandhi RN [facility]; [facility] Work Phone: Comment on above: Pattern: Regular 05-17-2013 11:32-0400 Respiratory rate 16 /min Fawn Gandhi RN [facility]; [facility] Work Phone: Comment on above: Pattern: Unlabored 05-17-2013 11:32-0400 SaO2% (BldA) [Mass fraction] 97 % Fawn Gandhi RN [facility]; [facility] Work Phone: Comment on above: Room air 05-17-2013 11:32-0400 Systolic blood pressure 124 mm[Hg] Fawn Gandhi RN [facility]; [facility] Work Phone: Comment on above: Patient Position: Sitting; Cuff Location : Left Arm; Cuff Size: Standard 04-12-2013 14:07-0500 Body height 167.64 cm Viktoria Coello [facility]; [facility] Work Phone: 04-12-2013 14:07-0500 Body mass index (BMI) [Ratio] 21.14 kg/m2 Viktoria Coello [facility] Work Phone: 04-12-2013 14:07-0500 Body surface area Derived from formula 1.67 m2 Viktoria Coello [facility]; [facility] Work Phone: 04-12-2013 14:07-0500 Body weight 59.42 kg Viktoria Coello [facility] Work Phone: 04-12-2013 14:07-0500 Diastolic blood pressure 72 mm[Hg] Viktoria Coello [facility] Work Phone: Comment on above: Patient Position: Sitting; Cuff Location : Left Arm; Cuff Size: Standard 04-12-2013 14:07-0500 Heart rate 68 /min Viktoria Coello [facility] Work Phone: Comment on above: Pattern: Regular 04-12-2013 14:07-0500 Respiratory rate 16 /min Viktoria Coello [facility] Work Phone: Comment on above: Pattern: Unlabored 04-12-2013 14:07-0500 Systolic blood pressure 108 mm[Hg] Viktoria Coello MAURY [facility]; [facility] Work Phone: Comment on above: Patient Position: Sitting; Cuff Location : Left Arm; Cuff Size: Standard 03-08-2013 09:28-0500 Body height 167.64 cm Fawn Gandhi RN [facility]; [facility] Work Phone: Comment on above: weight taken with boots 03-08-2013 09:28-0500 Body mass index (BMI) [Ratio] 20.98 kg/m2 Fawn Gandhi RN [facility]; [facility] Work Phone: Comment on above: weight taken with boots 03-08-2013 09:28-0500 Body surface area Derived from formula 1.67 m2 Fawn Gandhi RN [facility]; [facility] Work Phone: Comment on above: weight taken with boots 03-08-2013 09:28-0500 Body temperature 97.7 [degF] Fawn Gandhi RN [facility]; [facility] Work Phone: Comment on above: Method: Temporal weight taken with bessy ots 03-08-2013 09:28-0500 Body weight 58.97 kg Fawn Gandhi RN [facility]; [facility] Work Phone: Comment on above: weight taken with boots 03-08-2013 09:28-0500 Diastolic blood pressure 68 mm[Hg] Fawn Gandhi RN [facility]; [facility] Work Phone: Comment on above: Patient Position: Sitting; Cuff Location : Left Arm; Cuff Size: Standard weight taken with bessy ots 03-08-2013 09:28-0500 Respiratory rate 16 /min Fawn Gandhi RN [facility]; [facility] Work Phone: Comment on above: Pattern: Unlabored weight taken with bessy ots 03-08-2013 09:28-0500 SaO2% (BldA) [Mass fraction] 97 % Fawn Gandhi RN [facility]; [facility] Work Phone: Comment on above: Room air weight taken with bessy ots 03-08-2013 09:28-0500 Systolic blood pressure 118 mm[Hg] Fawn Gandhi RN [facility]; [facility] Work Phone: Comment on above: Patient Position: Sitting; Cuff Location : Left Arm; Cuff Size: Standard weight taken with bessy ots 11-02-2012 10:35-0400 Body height 167.64 cm Fawn Gandhi RN [facility]; [facility] Work Phone: 11-02-2012 10:35-0400 Body mass index (BMI) [Ratio] 20.66 kg/m2 Fawn Gandhi RN [facility]; [facility] Work Phone: 11-02-2012 10:35-0400 Body surface area Derived from formula 1.65 m2 Fawn Gandhi RN [facility]; [facility] Work Phone: 11-02-2012 10:35-0400 Body temperature 96.8 [degF] Fawn Gandhi RN [facility]; [facility] Work Phone: Comment on above: Method: Temporal 11-02-2012 10:35-0400 Body weight 58.06 kg Fawn Gandhi RN [facility]; [facility] Work Phone: 11-02-2012 10:35-0400 Diastolic blood pressure 70 mm[Hg] Fawn Gandhi RN [facility]; [facility] Work Phone: Comment on above: Patient Position: Sitting; Cuff Location : Left Arm; Cuff Size: Standard 11-02-2012 10:35-0400 Heart rate 72 /min Fawn Gandhi RN [facility]; [facility] Work Phone: Comment on above: Pattern: Regular 11-02-2012 10:35-0400 Respiratory rate 16 /min Fawn Gandhi RN [facility]; [facility] Work Phone: Comment on above: Pattern: Unlabored 11-02-2012 10:35-0400 SaO2% (BldA) [Mass fraction] 99 % Fawn Gandhi RN [facility]; [facility] Work Phone: Comment on above: Room air 11-02-2012 10:35-0400 Systolic blood pressure 124 mm[Hg] Fawn Gandhi RN [facility]; [facility] Work Phone: Comment on above: Patient Position: Sitting; Cuff Location : Left Arm; Cuff Size: Standard 09-14-2012 08:20-0400 Body height 167.64 cm Fawn Gandhi RN [facility]; [facility] Work Phone: 09-14-2012 08:20-0400 Body mass index (BMI) [Ratio] 20.34 kg/m2 Fawn Gandhi RN [facility]; [facility] Work Phone: 09-14-2012 08:20-0400 Body surface area Derived from formula 1.64 m2 Fawn Gandhi RN [facility]; [facility] Work Phone: 09-14-2012 08:20-0400 Body temperature 98.3 [degF] Fawn Gandhi RN [facility]; [facility] Work Phone: Comment on above: Method: Temporal 09-14-2012 08:20-0400 Body weight 57.15 kg Fawn Gandhi RN [facility]; [facility] Work Phone: 09-14-2012 08:20-0400 Diastolic blood pressure 78 mm[Hg] Fawn Gandhi RN [facility]; [facility] Work Phone: Comment on above: Patient Position: Sitting; Cuff Location : Left Arm; Cuff Size: Standard 09-14-2012 08:20-0400 Heart rate 68 /min Fawn Gandhi RN [facility]; [facility] Work Phone: Comment on above: Pattern: Regular 09-14-2012 08:20-0400 Respiratory rate 16 /min Fawn Gandhi RN [facility]; [facility] Work Phone: Comment on above: Pattern: Unlabored 09-14-2012 08:20-0400 SaO2% (BldA) [Mass fraction] 95 % Fawn Gandhi RN [facility]; [facility] Work Phone: Comment on above: Room air 09-14-2012 08:20-0400 Systolic blood pressure 120 mm[Hg] Fawn Gandhi RN [facility]; [facility] Work Phone: Comment on above: Patient Position: Sitting; Cuff Location : Left Arm; Cuff Size: Standard 07-02-2012 13:06-0400 Body height 167.64 cm PRATIMA Perez LPN [facility]; [facility] Work Phone: 07-02-2012 13:06-0400 Body mass index (BMI) [Ratio] 20.18 kg/m2 PRATIMA Chris DELA CRUZ [facility]; [facility] Work Phone: 07-02-2012 13:06-0400 Body surface area Derived from formula 1.64 m2 PRATIMAMELBA Perez LPN [facility]; [facility] Work Phone: 07-02-2012 13:06-0400 Body temperature 97.6 [degF] PRATIMA Perez LPN [facility]; [facility] Work Phone: Comment on above: Method: Oral 07-02-2012 13:060400 Body weight 56.7 kg PRATIMA Perez LPN [facility]; [facility] Work Phone: 07-02-2012 13:06-0400 Diastolic blood pressure 78 mm[Hg] PRATIMA Chris DELA CRUZ [facility]; [facility] Work Phone: Comment on above: Patient Position: Sitting; Cuff Location : Left Arm; Cuff Size: Standard 07-02-2012 13:06-0400 Heart rate 74 /min PRATIMA Perez LPN [facility]; [facility] Work Phone: Comment on above: Pattern: Regular 07-02-2012 13:06-0400 Respiratory rate 18 /min PRATIMA Perez LPN [facility]; [facility] Work Phone: Comment on above: Pattern: Unlabored 07-02-2012 13:06-0400 Systolic blood pressure 124 mm[Hg] PRATIMAMELBA Perez LPN [facility]; [facility] Work Phone: Comment on above: Patient Position: Sitting; Cuff Location : Left Arm; Cuff Size: Standard 05-21-2012 13:34-0400 Body height 167.64 cm Kareen Haley [facility]; [facility] Work Phone: 05-21-2012 13:34-0400 Body mass index (BMI) [Ratio] 20.05 kg/m2 Kareen Haley [facility]; [facility] Work Phone: 05-21-2012 13:34-0400 Body surface area Derived from formula 1.63 m2 Kareen Haley [facility]; [facility] Work Phone: 05-21-2012 13:34-0400 Body temperature 98.9 [degF] Kareen Haley [facility]; [facility] Work Phone: Comment on above: Method: Tympanic 05-21-2012 13:34-0400 Body weight 56.36 kg Kareen Haley [facility]; [facility] Work Phone: 05-21-2012 13:34-0400 Diastolic blood pressure 72 mm[Hg] Kareen Haley [facility]; [facility] Work Phone: Comment on above: Patient Position: Sitting; Cuff Location : Left Arm; Cuff Size: Standard 05-21-2012 13:34-0400 Heart rate 80 /min Kareen Haley [facility]; [facility] Work Phone: Comment on above: Pattern: Regular 05-21-2012 13:34-0400 Respiratory rate 16 /min Kareen Haley [facility]; [facility] Work Phone: Comment on above: Pattern: Unlabored 05-21-2012 13:34-0400 Systolic blood pressure 102 mm[Hg] Kareen Haley [facility]; [facility] Work Phone: Comment on above: Patient Position: Sitting; Cuff Location : Left Arm; Cuff Size: Standard 03-30-2012 14:0500 Body height 167.64 cm Fawn Gandhi RN [facility]; [facility] Work Phone: Comment on above: wearing boots 03-30-2012 14:-0500 Body mass index (BMI) [Ratio] 20.34 kg/m2 Fawn Gandhi RN [facility]; [facility] Work Phone: Comment on above: wearing boots 03-30-2012 14:01-0500 Body surface area Derived from formula 1.64 m2 Fawn Gandhi RN [facility]; [facility] Work Phone: Comment on above: wearing boots 03-30-2012 14:01-0500 Body temperature 98.2 [degF] Fawn Gandhi RN [facility]; [facility] Work Phone: Comment on above: Method: Temporal wearing boots 03-30-2012 14:01-0500 Body weight 57.15 kg Fawn Gandhi RN [facility]; [facility] Work Phone: Comment on above: wearing boots 03-30-2012 14:01-0500 Diastolic blood pressure 74 mm[Hg] Fawn Gandhi RN [facility]; [facility] Work Phone: Comment on above: Patient Position: Sitting; Cuff Location : Left Arm; Cuff Size: Standard wearing boots 03-30-2012 14:01-0500 Heart rate 72 /min Fawn Gandhi RN [facility]; [facility] Work Phone: Comment on above: Pattern: Regular wearing boots 03-30-2012 14:01-0500 Respiratory rate 16 /min Fawn Gandhi RN [facility]; [facility] Work Phone: Comment on above: Pattern: Unlabored wearing boots 03-30-2012 14:01-0500 Systolic blood pressure 122 mm[Hg] Fawn Gandhi RN [facility]; [facility] Work Phone: Comment on above: Patient Position: Sitting; Cuff Location : Left Arm; Cuff Size: Standard wearing boots 03-08-2012 14:18-0500 Body height 167.64 cm Fawn Gandhi RN [facility]; [facility] Work Phone: 03-08-2012 14:18-0500 Body mass index (BMI) [Ratio] 20.98 kg/m2 Fawn Gandhi RN [facility]; [facility] Work Phone: 03-08-2012 14:18-0500 Body surface area Derived from formula 1.67 m2 Fawn Gandhi RN [facility]; [facility] Work Phone: 03-08-2012 14:18-0500 Body temperature 98.2 [degF] Fawn Gandhi RN [facility]; [facility] Work Phone: Comment on above: Method: Temporal 03-08-2012 14:18-0500 Body weight 58.97 kg Fawn Gandhi RN [facility]; [facility] Work Phone: 03-08-2012 14:18-0500 Diastolic blood pressure 72 mm[Hg] Fawn Gandhi RN [facility]; [facility] Work Phone: Comment on above: Patient Position: Sitting; Cuff Location : Left Arm; Cuff Size: Standard 03-08-2012 14:18-0500 Heart rate 64 /min Fawn Gandhi RN [facility]; [facility] Work Phone: Comment on above: Pattern: Regular 03-08-2012 14:18-0500 Respiratory rate 16 /min Fawn Gandhi RN [facility]; [facility] Work Phone: Comment on above: Pattern: Unlabored 03-08-2012 14:18-0500 Systolic blood pressure 118 mm[Hg] Fawn Gandhi RN [facility]; [facility] Work Phone: Comment on above: Patient Position: Sitting; Cuff Location : Left Arm; Cuff Size: Standard 11-18-2011 08:03-0400 Body height 167.64 cm Lisa Villegas LPN [facility]; [facility] Work Phone: 11-18-2011 08:03-0400 Body mass index (BMI) [Ratio] 20.98 kg/m2 Lisa Villegas LPN [facility]; [facility] Work Phone: 11-18-2011 08:03-0400 Body surface area Derived from formula 1.67 m2 Lisa Villegas LPN [facility]; [facility] Work Phone: 11-18-2011 08:03-0400 Body temperature 98 [degF] Lisa Villegas [employer] [facility]; [facility] Work Phone: Comment on above: Method: Oral 11-18-2011 08:03-0400 Body weight 58.97 kg Lisa Villegas [employer] [facility]; [facility] Work Phone: 11-18-2011 08:03-0400 Diastolic blood pressure 68 mm[Hg] Lisa Villegas [employer] [facility]; [facility] Work Phone: Comment on above: Patient Position: Sitting; Cuff Location : Left Arm; Cuff Size: Standard 11-18-2011 08:03-0400 Heart rate 74 /min Lisa Villegas LANIE [facility]; [facility] Work Phone: Comment on above: Pattern: Regular 11-18-2011 08:03-0400 Respiratory rate 18 /min Lisa Villegas LANIE [facility]; [facility] Work Phone: Comment on above: Pattern: Unlabored 11-18-2011 08:03-0400 Systolic blood pressure 110 mm[Hg] Lisa Villegas [employer] [facility]; [facility] Work Phone: Comment on above: Patient Position: Sitting; Cuff Location : Left Arm; Cuff Size: Standard 08-01-2011 07:05-0400 Body height 167.64 cm PRATIMA Perez LPN [facility]; [facility] Work Phone: 08-01-2011 07:05-0400 Body mass index (BMI) [Ratio] 20.98 kg/m2 PRATIMA Perez LPN [facility]; [facility] Work Phone: 08-01-2011 07:05-0400 Body surface area Derived from formula 1.67 m2 PRATMIA Perez LPN [facility]; [facility] Work Phone: 08-01-2011 07:05-0400 Body temperature 98.2 [degF] PRATIMA Perez LPN [facility]; [facility] Work Phone: Comment on above: Method: Oral 08-01-2011 07:05-0400 Body weight 58.97 kg PRATIMA Perez LPN [facility]; [facility] Work Phone: 08-01-2011 07:05-0400 Diastolic blood pressure 64 mm[Hg] PRATIMA Perez [employer] [facility]; [facility] Work Phone: Comment on above: Patient Position: Sitting; Cuff Location : Left Arm; Cuff Size: Standard 08-01-2011 07:05-0400 Heart rate 70 /min PRATIMA Perez LANIE [facility]; [facility] Work Phone: Comment on above: Pattern: Regular 08-01-2011 07:05-0400 Respiratory rate 18 /min PRATIMA Perez LANIE [facility]; [facility] Work Phone: Comment on above: Pattern: Unlabored 08-01-2011 07:05-0400 Systolic blood pressure 104 mm[Hg] PRATIMA Perez LANIE [facility]; [facility] Work Phone: Comment on above: Patient Position: Sitting; Cuff Location : Left Arm; Cuff Size: Standard 07-04-2010 07:58-0400 Body height 167.64 cm PRATIMA Perez LANIE [facility]; [facility] Work Phone: 07-04-2010 07:58-0400 Body mass index (BMI) [Ratio] 21.14 kg/m2 PRATIMA Perez LANIE [facility]; [facility] Work Phone: 07-04-2010 07:58-0400 Body surface area Derived from formula 1.67 m2 PRATIMA Perez LANIE [facility]; [facility] Work Phone: 07-04-2010 07:58-0400 Body temperature 97.6 [degF] PRATIMA Perez LANIE [facility]; [facility] Work Phone: Comment on above: Method: Oral 07-04-2010 07:58-0400 Body weight 59.42 kg PRATIMA Perez LANIE [facility]; [facility] Work Phone: 07-04-2010 07:58-0400 Diastolic blood pressure 62 mm[Hg] PRATIMA Perez LANIE [facility]; [facility] Work Phone: Comment on above: Patient Position: Sitting; Cuff Location : Left Arm; Cuff Size: Standard 07-04-2010 07:58-0400 Heart rate 68 /min PRATIMA Perez LANIE [facility]; [facility] Work Phone: Comment on above: Pattern: Regular 07-04-2010 07:58-0400 Respiratory rate 18 /min PARTIMA Perez LANIE [facility]; [facility] Work Phone: Comment on above: Pattern: Unlabored 07-04-2010 07:58-0400 Systolic blood pressure 100 mm[Hg] PRATIMA Perez [employer] [facility]; [facility] Work Phone: Comment on above: Patient Position: Sitting; Cuff Location : Left Arm; Cuff Size: Standard 06-03-2010 08:06-0400 Body height 167.64 cm PRATIMA Perez LANIE [facility]; [facility] Work Phone: 06-03-2010 08:06-0400 Body mass index (BMI) [Ratio] 21.14 kg/m2 PRATIMA Perez LANIE [facility]; [facility] Work Phone: 06-03-2010 08:06-0400 Body surface area Derived from formula 1.67 m2 PRATIMA Perez LANIE [facility]; [facility] Work Phone: 06-03-2010 08:06-0400 Body temperature 97.6 [degF] PRATIMA Perez LANIE [facility]; [facility] Work Phone: Comment on above: Method: Oral 06-03-2010 08:06-0400 Body weight 59.42 kg PRATIMA Perez LANIE [facility]; [facility] Work Phone: 06-03-2010 08:06-0400 Diastolic blood pressure 64 mm[Hg] PRATIMA Perez LANIE [facility]; [facility] Work Phone: Comment on above: Patient Position: Sitting; Cuff Location : Left Arm; Cuff Size: Standard 06-03-2010 08:06-0400 Heart rate 64 /min PRATIMA Perez LANIE [facility]; [facility] Work Phone: Comment on above: Pattern: Regular 06-03-2010 08:06-0400 Respiratory rate 18 /min PRATIMA Perez LPN [facility]; [facility] Work Phone: Comment on above: Pattern: Unlabored 06-03-2010 08:06-0400 Systolic blood pressure 94 mm[Hg] PRATIMAMELBA Perez LANIE [facility]; [facility] Work Phone: Comment on above: Patient Position: Sitting; Cuff Location : Left Arm; Cuff Size: Standard 12-08-2008 08:47-0400 Body height 0 cm Suzanne Lewis RN [facility]; [facility] Work Phone: 12-08-2008 08:47-0400 Body temperature 98.1 [degF] Suzanen Lewis RN [facility]; [facility] Work Phone: Comment on above: Method: Oral 12-08-2008 08:47-0400 Body weight 0 kg Suzanne Lewis RN [facility]; [facility] Work Phone: 12-08-2008 08:47-0400 Diastolic blood pressure 78 mm[Hg] Suzanne Lewis RN [facility]; [facility] Work Phone: Comment on above: Patient Position: Sitting; Cuff Location : Left Arm; Cuff Size: Standard 12-08-2008 08:47-0400 Head Occipital-frontal circumference 0 cm Suzanne Lewis RN [facility]; [facility] Work Phone: 12-08-2008 08:47-0400 Heart rate 64 /min Suzanne Lewis RN [facility]; [facility] Work Phone: Comment on above: Pattern: Regular 12-08-2008 08:47-0400 Respiratory rate 16 /min Suzanne Lewis RN [facility]; [facility] Work Phone: Comment on above: Pattern: Unlabored 12-08-2008 08:47-0400 Systolic blood pressure 112 mm[Hg] Suzanne Lewis RN [facility]; [facility] Work Phone: Comment on above: Patient Position: Sitting; Cuff Location : Left Arm; Cuff Size: Standard 10-02-2008 16:16-0400 Body height 0 cm Mary West [facility]; [facility] Work Phone: 10-02-2008 16:16-0400 Body temperature 97 [degF] [facility]; [facility] Work Phone: Comment on above: Method: Oral 10-02-2008 16:16-0400 Body weight 57.64 kg [facility]; [facility] Work Phone: 10-02-2008 16:16-0400 Diastolic blood pressure 60 mm[Hg] [facility]; [facility] Work Phone: Comment on above: Patient Position: Sitting; Cuff Location : Left Arm; Cuff Size: Standard 10-02-2008 16:16-0400 Head Occipital-frontal circumference 0 cm [facility]; [facility] Work Phone: 10-02-2008 16:16-0400 Heart rate 72 /min [facility]; [facility] Work Phone: Comment on above: Pattern: Regular 10-02-2008 16:16-0400 Respiratory rate 18 /min [facility]; [facility] Work Phone: Comment on above: Pattern: Unlabored 10-02-2008 16:16-0400 Systolic blood pressure 104 mm[Hg] [facility]; [facility] Work Phone: Comment on above: Patient Position: Sitting; Cuff Location : Left Arm; Cuff Size: Standard 08-08-2008 11:210400 Body height 198.12 cm [facility]; [facility] Work Phone: 08-08-2008 11:21-0400 Body mass index (BMI) [Ratio] 14.71 kg/m2 [facility]; [facility] Work Phone: 08-08-2008 11:21-0400 Body surface area Derived from formula 1.86 m2 [facility]; [facility] Work Phone: 08-08-2008 11:21-0400 Body weight 57.72 kg [facility]; [facility] Work Phone: 08-08-2008 11:21-0400 Diastolic blood pressure 70 mm[Hg] Argelia Cano [facility]; [facility] Work Phone: Comment on above: Patient Position: Supine; Cuff Location: Left Arm; Cuff Size: Standard 08-08-2008 11:21-0400 Head Occipital-frontal circumference 0 cm Argelia Cano [facility]; [facility] Work Phone: 08-08-2008 11:21-0400 Heart rate 80 /min Argelia Cano [facility]; [facility] Work Phone: Comment on above: Pattern: Regular 08-08-2008 11:21-0400 Respiratory rate 16 /min Argelia Cano [facility]; [facility] Work Phone: Comment on above: Pattern: Unlabored 08-08-2008 11:21-0400 Systolic blood pressure 118 mm[Hg] Argelia Cano [facility]; [facility] Work Phone: Comment on above: Patient Position: Supine; Cuff Location: Left Arm; Cuff Size: Standard 07-12-2008 11:00-0400 Body height 0 cm Betty Lange [facility]; [facility] Work Phone: 07-12-2008 11:00-0400 Body temperature 97 [degF] Betty Lange [facility]; [facility] Work Phone: Comment on above: Method: Oral 07-12-2008 11:00-0400 Body weight 57.72 [facility]; [facility] Work Phone: 07-12-2008 11:00-0400 Diastolic blood pressure 78 mm[Hg] Betty Lange [facility]; [facility] Work Phone: Comment on above: Patient Position: Sitting; Cuff Location : Left Arm; Cuff Size: Standard 07-12-2008 11:00-0400 Head Occipital-frontal circumference 0 cm [facility] Work Phone: 07-12-2008 11:00-0400 Heart rate 76 /min Betty Calame [facility]; [facility] Work Phone: Comment on above: Pattern: Regular 07-12-2008 11:00-0400 Respiratory rate 16 /min Betty Lange [facility]; [facility] Work Phone: Comment on above: Pattern: Unlabored 07-12-2008 11:00-0400 Systolic blood pressure 104 mm[Hg] Betty Lange [facility]; [facility] Work Phone: Comment on above: Patient Position: Sitting; Cuff Location : Left Arm; Cuff Size: Standard 06-23-2008 14:37-0400 Body height 0 cm Suzanne Lewis RN [facility]; [facility] Work Phone: 06-23-2008 14:37-0400 Body temperature 98.3 [degF] Suzanne Lewis RN [facility]; [facility] Work Phone: Comment on above: Method: Oral 06-23-2008 14:37-0400 Body weight 0 kg Suzanne Lewis RN [facility]; [facility] Work Phone: 06-23-2008 14:37-0400 Diastolic blood pressure 74 mm[Hg] Suzanne Lewis RN [facility]; [facility] Work Phone: Comment on above: Patient Position: Sitting; Cuff Location : Right Arm; Cuff Size: Standard 06-23-2008 14:37-0400 Head Occipital-frontal circumference 0 cm Suzanne Lewis RN [facility]; [facility] Work Phone: 06-23-2008 14:37-0400 Heart rate 84 /min Suzanne Lewis RN [facility]; [facility] Work Phone: Comment on above: Pattern: Regular 06-23-2008 14:37-0400 Respiratory rate 16 /min Suzanne Lewis RN [facility]; [facility] Work Phone: Comment on above: Pattern: Unlabored 06-23-2008 14:37-0400 Systolic blood pressure 102 mm[Hg] Suzanne Lewis RN [facility]; [facility] Work Phone: Comment on above: Patient Position: Sitting; Cuff Location : Right Arm; Cuff Size: Standard 03-17-2008 08:42-0500 Body height 167.64 cm Shirley Villagran RN [facility]; [facility] Work Phone: Comment on above: vision with out correctionou=20/50 os=20 /100 od=20/40 03-17-2008 08:42-0500 Body mass index (BMI) [Ratio] 21.17 kg/m2 Shirley Villagran RN [facility]; [facility] Work Phone: Comment on above: vision with out correctionou=20/50 os=20 /100 od=20/40 03-17-2008 08:42-0500 Body surface area Derived from formula 1.67 m2 Shirley Villagran RN [facility]; [facility] Work Phone: Comment on above: vision with out correctionou=20/50 os=20 /100 od=20/40 03-17-2008 08:42-0500 Body weight 59.51 kg Shirley Villagran RN [facility]; [facility] Work Phone: Comment on above: vision with out correctionou=20/50 os=20 /100 od=20/40 03-17-2008 08:42-0500 Diastolic blood pressure 70 mm[Hg] Shirley Villagran RN [facility]; [facility] Work Phone: Comment on above: Patient Position: Sitting; Cuff Location : Left Arm; Cuff Size: Large vision with out teofilo ectionou=20/50 os=20/100 od=20/40 03-17-2008 08:42-0500 Head Occipital-frontal circumference 0 cm Shirley Villagran RN [facility]; [facility] Work Phone: Comment on above: vision with out correctionou=20/50 os=20 /100 od=20/40 03-17-2008 08:42-0500 Heart rate 60 /min Shirley Villagran RN [facility]; [facility] Work Phone: Comment on above: Pattern: Regular vision with out teofilo ectionou=20/50 os=20/100 od=20/40 03-17-2008 08:42-0500 Respiratory rate 16 /min Shirley Villagran RN [facility]; [facility] Work Phone: Comment on above: Pattern: Unlabored vision with out teofilo ectionou=20/50 os=20/100 od=20/40 03-17-2008 08:42-0500 Systolic blood pressure 118 mm[Hg] Shirley Villagran RN [facility]; [facility] Work Phone: Comment on above: Patient Position: Sitting; Cuff Location : Left Arm; Cuff Size: Large vision with out teofilo ectionou=20/50 os=20/100 od=20/40 11-22-2007 16:26-0400 Body height 0 cm PRATIMA Perez LPN [facility]; [facility] Work Phone: 11-22-2007 16:26-0400 Body temperature 96.8 [degF] PRATIMA Perez LPN [facility]; [facility] Work Phone: Comment on above: Method: Oral 11-22-2007 16:26-0400 Body weight 0 kg PRATIMA Perez LPN [facility]; [facility] Work Phone: 11-22-2007 16:26-0400 Diastolic blood pressure 64 mm[Hg] PRATIMA Perez LPN [facility]; [facility] Work Phone: Comment on above: Patient Position: Sitting; Cuff Location : Left Arm; Cuff Size: Standard 11-22-2007 16:26-0400 Head Occipital-frontal circumference 0 cm PRATIMA Perez LPN [facility]; [facility] Work Phone: 11-22-2007 16:26-0400 Heart rate 60 /min PRATIMA Perez LPN [facility]; [facility] Work Phone: Comment on above: Pattern: Regular 11-22-2007 16:26-0400 Respiratory rate 16 /min PRATIMA Perez LPN [facility]; [facility] Work Phone: Comment on above: Pattern: Unlabored 11-22-2007 16:26-0400 Systolic blood pressure 102 mm[Hg] PRATIMA Perez LPN [facility]; [facility] Work Phone: Comment on above: Patient Position: Sitting; Cuff Location : Left Arm; Cuff Size: Standard 08-11-2007 14:33-0400 Body height 167.64 cm [facility]; [facility] Work Phone: 08-11-2007 14:33-0400 Body mass index (BMI) [Ratio] 21.17 kg/m2 [facility]; [facility] Work Phone: 08-11-2007 14:33-0400 Body surface area Derived from formula 1.67 m2 [facility]; [facility] Work Phone: 08-11-2007 14:33-0400 Body temperature 97.1 [degF] [facility]; [facility] Work Phone: Comment on above: Method: Oral 08-11-2007 14:33-0400 Body weight 59.51 kg [facility]; [facility] Work Phone: 08-11-2007 14:33-0400 Diastolic blood pressure 60 mm[Hg] [facility]; [facility] Work Phone: Comment on above: Patient Position: Sitting; Cuff Location : Left Arm; Cuff Size: Standard 08-11-2007 14:33-0400 Head Occipital-frontal circumference 0 cm [facility]; [facility] Work Phone: 08-11-2007 14:33-0400 Heart rate 76 /min [facility]; [facility] Work Phone: Comment on above: Pattern: Regular 08-11-2007 14:33-0400 Respiratory rate 18 /min [facility]; [facility] Work Phone: Comment on above: Pattern: Unlabored 08-11-2007 14:33-0400 Systolic blood pressure 112 mm[Hg] [facility]; [facility] Work Phone: Comment on above: Patient Position: Sitting; Cuff Location : Left Arm; Cuff Size: Standard 07-26-2007 10:43-0400 Body height 0 cm PRATIMA Perez LPN [facility]; [facility] Work Phone: 07-26-2007 10:43-0400 Body temperature 98.2 [degF] PRATIMA Perez LPN [facility]; [facility] Work Phone: Comment on above: Method: Oral 07-26-2007 10:43-0400 Body weight 60.33 kg PRATIMA Perez LPN [facility]; [facility] Work Phone: 07-26-2007 10:43-0400 Diastolic blood pressure 64 mm[Hg] PRATIMA Perez LPN [facility]; [facility] Work Phone: Comment on above: Patient Position: Sitting; Cuff Location : Left Arm; Cuff Size: Standard 07-26-2007 10:43-0400 Head Occipital-frontal circumference 0 cm PRATIMA Perez LPN [facility]; [facility] Work Phone: 07-26-2007 10:43-0400 Heart rate 60 /min PRATIMA Perez LPN [facility]; [facility] Work Phone: Comment on above: Pattern: Regular 07-26-2007 10:43-0400 Respiratory rate 18 /min PRATIMA Perez LPN [facility]; [facility] Work Phone: Comment on above: Pattern: Unlabored 07-26-2007 10:43-0400 Systolic blood pressure 108 mm[Hg] PRATIMA Perez LPN [facility]; [facility] Work Phone: Comment on above: Patient Position: Sitting; Cuff Location : Left Arm; Cuff Size: Standard 05-24-2007 10:54-0400 Body height 165.1 cm Argelia Rachael [facility]; [facility] Work Phone: 05-24-2007 10:54-0400 Body weight 0 kg Argeliaholli Cano [facility]; [facility] Work Phone: 05-24-2007 10:54-0400 Diastolic blood pressure 62 mm[Hg] Argeliaholli Cano [facility]; [facility] Work Phone: Comment on above: Patient Position: Sitting; Cuff Location : Left Arm; Cuff Size: Standard 05-24-2007 10:54-0400 Head Occipital-frontal circumference 0 cm Argelia Cano [facility]; [facility] Work Phone: 05-24-2007 10:54-0400 Heart rate 72 /min Argelia Cano [facility]; [facility] Work Phone: Comment on above: Pattern: Regular 05-24-2007 10:54-0400 Respiratory rate 16 /min Argelia Cano [facility]; [facility] Work Phone: Comment on above: Pattern: Unlabored 05-24-2007 10:54-0400 Systolic blood pressure 112 mm[Hg] Argelia Cano [facility]; [facility] Work Phone: Comment on above: Patient Position: Sitting; Cuff Location : Left Arm; Cuff Size: Standard 04-21-2007 09:08-0400 Body height 0 cm PRATIMA Perez LPN [facility]; [facility] Work Phone: 04-21-2007 09:08-0400 Body temperature 98.4 [degF] PRATIMA Perez LPN [facility]; [facility] Work Phone: Comment on above: Method: Oral 04-21-2007 09:08-0400 Body weight 0 kg PRATIMA Perez LPN [facility]; [facility] Work Phone: 04-21-2007 09:08-0400 Diastolic blood pressure 74 mm[Hg] PRATIMA Perez LPN [facility]; [facility] Work Phone: Comment on above: Patient Position: Sitting; Cuff Location : Left Arm; Cuff Size: Standard 04-21-2007 09:08-0400 Head Occipital-frontal circumference 0 cm PRATIMA Perez LPN [facility]; [facility] Work Phone: 04-21-2007 09:08-0400 Heart rate 64 /min PRATIMA Perez LPN [facility]; [facility] Work Phone: Comment on above: Pattern: Regular 04-21-2007 09:08-0400 Respiratory rate 18 /min PRATIMA Perez LPN [facility]; [facility] Work Phone: Comment on above: Pattern: Unlabored 04-21-2007 09:08-0400 Systolic blood pressure 104 mm[Hg] PRATIMA Perez LPN [facility]; [facility] Work Phone: Comment on above: Patient Position: Sitting; Cuff Location : Left Arm; Cuff Size: Standard 04-09-2007 07:08-0500 Body height 0 cm PRATIMA Perez LANIE [facility]; [facility] Work Phone: 04-09-2007 07:08-0500 Body temperature 98.2 [degF] PRATIMA Perez LANIE [facility]; [facility] Work Phone: Comment on above: Method: Oral 04-09-2007 07:08-0500 Body weight 0 kg PRATIMA Perez LANIE [facility]; [facility] Work Phone: 04-09-2007 07:08-0500 Diastolic blood pressure 80 mm[Hg] PRATIMA Perez LANIE [facility]; [facility] Work Phone: Comment on above: Patient Position: Sitting; Cuff Location : Left Arm; Cuff Size: Standard Patient Position: St anding; Cuff Location: Left Arm; Cuff Size: Standard 04-09-2007 07:08-0500 Head Occipital-frontal circumference 0 cm PRATIMA Perez LANIE [facility]; [facility] Work Phone: 04-09-2007 07:08-0500 Heart rate 80 /min PRATIMA Perez LANIE [facility]; [facility] Work Phone: Comment on above: Pattern: Regular 04-09-2007 07:08-0500 Respiratory rate 18 /min PRATIMA Perez LANIE [facility]; [facility] Work Phone: Comment on above: Pattern: Unlabored 04-09-2007 07:08-0500 SaO2% (BldA) [Mass fraction] 98 % PRATIMA Perez LANIE [facility]; [facility] Work Phone: Comment on above: Room air 04-09-2007 07:08-0500 Systolic blood pressure 94 mm[Hg] PRATIMA Perez LANIE [facility]; [facility] Work Phone: Comment on above: Patient Position: Sitting; Cuff Location : Left Arm; Cuff Size: Standard 04-09-2007 07:08-0500 Systolic blood pressure 100 mm[Hg] PRATIMA Perez LPN [facility]; [facility] Work Phone: Comment on above: Patient Position: Standing; Cuff Locatio n: Left Arm; Cuff Size: Standard 04-09-2007 07:07-0500 Body height 0 cm PRATIMA Perez LPN [facility]; [facility] Work Phone: 04-09-2007 07:07-0500 Body weight 0 kg PRATIMA Perez [employer] [facility]; [facility] Work Phone: 04-09-2007 07:07-0500 Diastolic blood pressure 80 mm[Hg] PRATIMA Perez LPN [facility]; [facility] Work Phone: Comment on above: Patient Position: Supine; Cuff Location: Left Arm; Cuff Size: Standard 04-09-2007 07:07-0500 Head Occipital-frontal circumference 0 cm PRATIMA Perez LANIE [facility]; [facility] Work Phone: 04-09-2007 07:07-0500 Heart rate 72 /min PRATIMA Perez LPN [facility]; [facility] Work Phone: Comment on above: Pattern: Regular 04-09-2007 07:07-0500 Systolic blood pressure 110 mm[Hg] PARTIMA Perez LPN [facility]; [facility] Work Phone: Comment on above: Patient Position: Supine; Cuff Location: Left Arm; Cuff Size: Standard 04-06-2007 09:05-0500 Body height 0 cm Neeru Hammond [facility]; [facility] Work Phone: 04-06-2007 09:05-0500 Body temperature 97.7 [degF] Neeru Hammond [facility]; [facility] Work Phone: Comment on above: Method: Oral 04-06-2007 09:05-0500 Body weight 0 kg Neeru Hammond [facility]; [facility] Work Phone: 04-06-2007 09:05-0500 Diastolic blood pressure 72 mm[Hg] Neeru Hammond [facility]; [facility] Work Phone: Comment on above: Patient Position: Sitting; Cuff Location : Left Arm; Cuff Size: Standard 04-06-2007 09:05-0500 Head Occipital-frontal circumference 0 cm Neerukassandra ElderHammond [facility]; [facility] Work Phone: 04-06-2007 09:05-0500 Heart rate 70 /min Neeru Hammond [facility]; [facility] Work Phone: Comment on above: Pattern: Regular 04-06-2007 09:05-0500 Respiratory rate 16 /min Neeru Hammond [facility]; [facility] Work Phone: Comment on above: Pattern: Unlabored 04-06-2007 09:05-0500 Systolic blood pressure 110 mm[Hg] Neerukedar Elderman [facility]; [facility] Work Phone: Comment on above: Patient Position: Sitting; Cuff Location : Left Arm; Cuff Size: Standard 08-24-2006 11:52-0400 Body height 0 cm Rosenda Cortez [facility]; [facility] Work Phone: 08-24-2006 11:52-0400 Body temperature 97.9 [degF] Rosenda Cortez [facility]; [facility] Work Phone: Comment on above: Method: Oral 08-24-2006 11:52-0400 Body weight 0 kg Rosenda Cortez [facility]; [facility] Work Phone: 08-24-2006 11:52-0400 Diastolic blood pressure 74 mm[Hg] Rosenda Cortez [facility]; [facility] Work Phone: Comment on above: Patient Position: Sitting; Cuff Location : Left Arm; Cuff Size: Standard 08-24-2006 11:52-0400 Head Occipital-frontal circumference 0 cm Rosenda Cortez [facility]; [facility] Work Phone: 08-24-2006 11:52-0400 Heart rate 72 /min Rosenda Cortez [facility]; [facility] Work Phone: Comment on above: Pattern: Regular 08-24-2006 11:52-0400 Respiratory rate 16 /min Rosenda Cortez [facility]; [facility] Work Phone: Comment on above: Pattern: Unlabored 08-24-2006 11:52-0400 Systolic blood pressure 108 mm[Hg] Rosenda Cortez [facility]; [facility] Work Phone: Comment on above: Patient Position: Sitting; Cuff Location : Left Arm; Cuff Size: Standard Encounters Encounter Date Encounter Type Care Provider Facility Start: 12-22-2024 ambulatory Brittanydonald Dougherty Facilit y:[facility] Start: 02-12-2024 End: 02-12-2024 ambulatory Brittanyarvin Dougherty Facility:[facility] Start: 09-04-2022 End: 09-04-2022 Office outpatient visit 25 minutes Brittany Dougherty DO Work Phone: [facility] Start: 08-18-2022 End: 08-18-2022 ambulatory [facility] Work Phone: Start: 08-18-2022 End: 08-18-2022 Patient encounter procedure [facility] Work Phone: Start: 08-13-2021 End: 08-13-[address] Brittany Dougherty Work Phone: [facility] Start: 02-20-2021 End: 02-20-2021 Office outpatient visit 25 minutes Rg Gonzalez MD Work Phone: [facility] Start: 12-17-2020 End: 12-17-2020 Office outpatient visit 10 minutes Rg Gonzalez MD Work Phone: [facility] Start: 11-15-2020 End: 11-15-2020 Patient encounter procedure Brittany Dougherty DO Work Phone: [facility] Start: 11-15-2020 End: 11-15-2020 Periodic preventive med est patient 65yrs& older Rg Gonzalez MD Work Phone: [facility] Start: 10-31-2020 End: 10-31-2020 Office outpatient new 30 minutes Rg Gonzalez MD Work Phone: [facility] Start: 05-24-2015 End: 05-24-2015 Historical Summary Rg Gonzalez MD Work Phone: [facility] Start: 05-24-2015 End: 05-24-2015 Office outpatient visit 15 minutes Rg Gonzalez MD Work Phone: [facility] Start: 05-22-2015 End: 05-22-2015 Patient encounter procedure Rg Gonzalez MD Work Phone: [facility] Start: 05-02-2015 End: 05-02-2015 Patient encounter procedure Rg Gonzalez MD Work Phone: [facility] Start: 04-04-2015 End: 04-04-2015 Patient encounter procedure Rg Gonzalez MD Work Phone: [facility] Start: 03-21-2015 End: 03-21-2015 Phone Encounter Rg Gonzalez MD Work Phone: [facility] Start: 03-21-2015 End: 03-21-2015 Patient encounter procedure Rg Gonzalez MD Work Phone: [facility] Start: 03-20-2015 End: 03-20-2015 Phone Encounter Rg Gonzalez MD Work Phone: [facility] Start: 03-19-2015 End: 03-19-2015 Annotation/Addendum Rg Gonzalez MD Work Phone: [facility] Start: 02-13-2015 End: 02-13-2015 Patient encounter procedure Rg Gonzalez MD Work Phone: [facility] Start: 02-06-2015 End: 02-06-2015 Phone Encounter Rg Gonzalez MD Work Phone: [facility] Start: 11-23-2014 End: 11-23-2014 Office outpatient visit 40 minutes Rg Gonzalez MD Work Phone: [facility] Start: 11-22-2013 End: 11-22-2013 Office outpatient visit 40 minutes Rg Gonzalez MD Work Phone: [facility] Start: 10-11-2013 End: 10-11-2013 Office outpatient visit 25 minutes Rg Gonzalez MD Work Phone: [facility] Start: 05-17-2013 End: 05-17-2013 Patient encounter procedure Rg Gonzalez MD Work Phone: [facility] Start: 04-12-2013 End: 04-12-2013 Patient encounter procedure Rg Gonzalez MD Work Phone: [facility] Start: 03-11-2013 End: 03-11-2013 Lab Order Rg Gonzalez MD Work Phone: [facility] Start: 03-08-2013 End: 03-08-2013 Patient encounter procedure Rg Gonzalez MD Work Phone: [facility] Start: 11-02-2012 End: 11-02-2012 Patient encounter procedure Rg Gonzalez MD Work Phone: [facility] Start: 09-14-2012 End: 09-14-2012 Patient encounter procedure Rg Gonzalez MD Work Phone: [facility] Start: 07-02-2012 End: 07-02-2012 Patient encounter procedure Rg Gonzalez MD Work Phone: [facility] Start: 05-25-2012 End: 05-25-2012 Prescription Refill Rg Gonzalez MD Work Phone: [facility] Start: 05-21-2012 End: 05-21-2012 Patient encounter procedure Rg Gonzalez MD Work Phone: [facility] Start: 03-30-2012 End: 03-30-2012 Patient encounter procedure Rg Gonzalez MD Work Phone: [facility] Start: 03-08-2012 End: 03-08-2012 Patient encounter procedure Rg Gonzalez MD Work Phone: [facility] Start: 11-18-2011 End: 11-18-2011 Office outpatient visit 15 minutes Rg Gonzalez MD Work Phone: [facility] Start: 08-01-2011 End: 08-01-2011 Patient encounter procedure Rg Gonzalez MD Work Phone: [facility] Start: 07-04-2010 End: 07-04-2010 Patient encounter procedure Rg Gonzalez MD Work Phone: [facility] Start: 06-03-2010 End: 06-03-2010 Patient encounter procedure Rg Gonzalez MD Work Phone: [facility] Start: 12-08-2008 End: 12-08-2008 Patient encounter procedure Rg Gonzalez MD Work Phone: [facility] Start: 10-02-2008 End: 10-02-2008 Office outpatient visit 15 minutes Rg Gonzalez MD Work Phone: [facility] Start: 08-08-2008 End: 08-08-2008 Office outpatient visit 15 minutes Rg Gonzalez MD Work Phone: [facility] Start: 07-20-2008 End: 07-20-2008 Phone Encounter Rg Gonzalez MD Work Phone: [facility] Start: 07-12-2008 End: 07-12-2008 Office outpatient visit 15 minutes Rg Gonzalez MD Work Phone: [facility] Start: 06-23-2008 End: 06-23-2008 Patient encounter procedure Rg Gonzalez MD Work Phone: [facility] Start: 03-17-2008 End: 03-17-2008 Patient encounter procedure Rg Gonzalez MD Work Phone: [facility] Start: 11-22-2007 End: 11-22-2007 Patient encounter procedure Rg Gonzalez MD Work Phone: [facility] Start: 08-11-2007 End: 08-11-2007 Office outpatient visit 25 minutes Rg Gonzalez MD Work Phone: [facility] Start: 07-26-2007 End: 07-26-2007 Patient encounter procedure Rg Gonzalez MD Work Phone: [facility] Start: 05-24-2007 End: 05-24-2007 Office outpatient visit 15 minutes Rg Gonzalez MD Work Phone: [facility] Start: 04-21-2007 End: 04-21-2007 Patient encounter procedure Rg Gonzalez MD Work Phone: [facility] Start: 04-09-2007 End: 04-09-2007 Patient encounter procedure Rg Gonzalez MD Work Phone: [facility] Start: 04-06-2007 End: 04-06-2007 Patient encounter procedure Rg Gonzalez MD Work Phone: [facility] Start: 08-24-2006 End: 08-24-2006 Office outpatient visit 15 minutes Rg Gonzalez MD Work Phone: [facility] Start: 08-21-2006 End: 08-21-2006 Historical Summary Rg Gonzalez MD Work Phone: [facility] Start: 02-18-2006 End: 02-18-2006 Historical Summary Rg Gonzalez MD Work Phone: [facility] Start: 01-08-2006 End: 01-08-2006 Historical Summary Rg Gonzalez MD Work Phone: [facility] Patient encounter procedure Geno Adolphrb FURNITURE MOVER HELPER [facility] Work Phone: Patient encounter procedure Macey Vargas OVEN TENDER [facility]; [facility] Work Phone: Patient encounter procedure Yovany Sorianoyor FURNITURE MOVER HELPER [facility]; [facility] Work Phone: Procedures Date Procedure Procedure Detail Performing Clinician Start: 08-25-2022 End: 08-25-2022 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 Office Visit Report Procedure Note: See Note; NOTES: [facility] [address] [place] [address] OFFICE VISIT Date of Service: 08/25/22 MR#: [id number] Acct: [id number] Name: MAK WILLSON Rep #: [id number] : 1950 Provider: ARMANDO mcgovern Age/Sex: 71/F Location[place] [facility] [place] [facility] [place] Status: Signed Intake Vital Signs 08/13/21 09:38 08/25/22 09:08 08/25/22 09:12 Height 5 ft 8 in 5 ft 8 in 5 ft 8 in Weight: 142 lb 8 oz BMI 21.7 BP 130/80 H Intake Visit Reasons: Annual (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) 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: 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 Supervisor Line Department Required: No Is patient in pain?: No Allergies No Known Allergies Allergy (Verified 08/25/22 09:07) Medications sumatriptan succinate 50 mg tablet (Imitrex) 50 mg PO ONCE 03/02/17 [History Confirmed 08/25/22] estradiol 0.01% (0.1 mg/gram) vaginal cream 1 g vaginal .COMPLEX 08/25/22 [History Confirmed 08/25/22] fluocinolone 0.025 % topical ointment (Synalar) 1 applic topical .COMPLEX #15 grams 08/25/22 [Rx Confirmed 08/25/22] Is last menstrual period known: No Post menopausal: Yes Patient : No : No PFSH Medical History Iritis Surgical History gallbladder surgery H/O knee surgery History of appendectomy History of hysterectomy Family History Father Hypertension Mother Hypertension Social History Smoking Status: Never smoker alcohol intake: never substance use type: does not use caffeine: Yes what type of physical activity do you participate in: walking frequency: 5-6 times per week seatbelt use: always do you feel safe at home: Yes additional social history: Renetta Bowden Retired History 3 Elective abortions Hx Para 3 Spontaneous abortions Hx # Term Pregnancies Ectopic pregnancies Hx # Pregnancies Multiple births # of living children Past Pregnancies Del. Date Name GA/Weeks Outcome Route Bth Weight Gen Labor Lgth Anesthesia Del Locatn Provider FOB Unknown 1973 Bobo Unknown 1976 Aren Unknown 1980 [facility] Encounter for routine gynecological examination Details: MAK WILLSON is a 71 year old who presents for annual exam. Several concerns. Still struggles with dyspareunia. States not using estradiol cream. Concerned with risks. States has pain especially inner left wall of vagina. Does use clobetesol prn, expensive at $40 a tube. Still caring for elderly parents. She also is noting right shoulder and breast pain. Recent normal mammogram. Does lift a lot with care of parents. Has some leakage of stool after BM but not as bad as it was a couple of months ago. Last PAP: NA History of abnormal PAP: no Last mammogram: 08/18/22 History of abnormal mammogram: no Colon cancer screenin Other preventative health care screenings: Farhat Female Reproductive History Questions: metorrhagia: No, sexually active: Yes, dyspareunia: Yes and PCB: No Menopausal Symptoms: No hot flashes, No night sweats, No weight change, No mood changes, No difficulty concentrating, No sleep problems and No change in libido Menopausal Treatment: Yes Vaginal Estrogen ROS Const Constitutional: Denies night sweats Cardio Card: Denies chest pain Resp Resp: Denies cough or dyspnea on exertion GI GI: Denies abdominal pain, bloating, change in stool character, constipation or vomiting : Denies hot flashes Psych Psych: Denies change in libido or difficulty concentrating Exam Const General: cooperative, healthy appearing, no acute distress and well developed Orientation: alert, oriented to person and oriented to place HENMT Head: normal to inspection Neck Neck: normal visual inspection Thyroid: thyroid normal Lymphatic: no lymphadenopathy noted Chest Breast inspection: normal inspection of the breasts and normal inspection of the axillae Breast palpation: normal palpation of the breasts, normal palpation of the axillae and no axillary lymphadenopathy Resp Effort Inspection: normal respiratory effort GI Palpation: soft, no masses and nontender Rectal Exam: deferred External Female Exam: normal external appearance and normal appearance of the urethra Urethra: normal appearance of the urethra and normal palpation Speculum Exam - Vagina: normal vaginal discharge and vagina atrophic (aparna at posterior introitus. Regression of bilat minora) Speculum Exam - Cervix: absent Bimanual Exam- Vagina Uterus: normal bimanual exam and uterus absent Bimanual Exam- Adnexa, other: normal adnexae, no masses, normal and non-tender Pelvic Support: normal Neuro General: patient alert and patient oriented x3 Psych Affect: normal affect Coding Level of Care Code Pelvic/Breast Diagnoses Encounter for gynecological examination with abnormal finding Z01.411 Gynecological examination findings: abnormal findings PRESENT Lichen sclerosus L90.0 Vaginal atrophy N95.2 Assessment and Plan Assessment and Plan (1) Encounter for routine gynecological examination: Qualifiers: Gynecological examination findings: abnormal findings PRESENT Qualified Code(s): Z01.411 - Encounter for gynecological examination (general) (routine) with abnormal findings (2) Lichen sclerosus: Status: Acute Comment: synalar (3) Vaginal atrophy: Status: Acute Comment: enc routine use of estradiol cream Medications: New estradiol 0.01%(0.1mg/gram) 1 g vaginally 3 times per week; fluocinolone 0.025% (Synalar) 1 applic topically small amount daily as needed 15 grams 3RF Discontinued estradiol 0.01%(0.1mg/gram) (Estrace) Discontinued Reason: Order Changed pea sized amount VAGINAL twice a week; 42.5 grams 2RF clobetasol 0.05% Discontinued Reason: Order Changed 1 applic TOPICAL apply thin layer as directed daily X 1 week with flares; massage in to cover area 15 grams 2RF Plan Completed breast and pelvic exam Reviewed diet and exercise Pap na Mammogram recent Discussed needs to see PCP or chiropractor for shoulder pain. Discussed to contact Dr Carrizales about stool incontinence. Will change to synalar to see if more affordable Discussed risks and benefits of vaginal estrogen. She does want to try again and new Rx to [facility] pharmacy. breast self exam encouraged monthly Colonoscopy 2020 Bone density with PCP RTO 1 year, prn with problems Sakina Osborn [facility] 08/25/22 0957 <Electronically signed by Sakina Osborn NP TELEPHONE DIAPHRAGM ASSEMBLER-C> Date Sakina Osborn NP TELEPHONE DIAPHRAGM ASSEMBLER-C Cosigner Signature: Date (if applicable) CC: Brittany Dougherty DO Work Phone: Start: 08-18-2022 Screening mammography Start: 08-18-2022 End: 08-18-2022 SCRN MAMM (CAD)W/JEFF BILAT Procedure Note: See Note; NOTES: [facility] Imaging Services [address] [place] [address] SCRN MAMM (CAD)W/JEFF BILAT MR#: [id number] Acct: [id number] Name: MAK WILLSON Rep #: [id number] : 1950 F 71 From: Jonnie sesay MD PCP: Dr. Brittany Dougherty, DO Status: REG CL Study: SCRN MAMM (CAD)W/JEFF BILAT Date of Exam: 08/09 Exam# [id number] Ordering Dr: aSkina Osborn NP TELEPHONE DIAPHRAGM ASSEMBLER -C MAMMOGRAPHY - BILATERAL SCREENING REASON FOR EXAM: Female, 71 years old. Routine annual screening examination. PERTINENT HISTORY: Non-contributory. TECHNIQUE: Digital bilateral breast jeff (3D mammographic acquisition) in the CC and MLO projections. 2-D mediolateral oblique (MLO) and craniocaudad (CC) views of both breasts were obtained. CAD: Full Field Digital Mammography with Computer Added Detection was performed. COMPARISON: Comparison is made with prior study dated August 13, 2021 and August 08, 2020. FINDINGS: Breast Composition: The breasts are heterogeneously dense, which may obscure small masses. There are no dominant masses or suspicious calcifications. No other significant abnormalities are identified. There has been no significant change since the prior study. BI/SCRN MAMM (CAD)W/JEFF BILAT IMPRESSION: Stable bilateral screening mammogram. Yearly follow-up mammogram recommended. (A) ASSESSMENT CATEGORY: BIRADS Category 1: Negative. A letter regarding these results will be sent to the patient by the facility within 30 days. Approximately 10% of breast cancers are not detected by mammography. A normal mammogram should not delay biopsy of a clinically suspicious abnormality. [id number] Electronically Signed: Jonnie Reid MD at 11:01 EDT , CC: ARMANDO Osborn; Dr. Brittany Dougherty DO Vp: Signed Brittany Dougherty DO Work Phone: Start: 08-13-2021 End: 08-13-2021 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 Office Visit Report Procedure Note: See Note; NOTES: [facility] [address] [place] [address] OFFICE VISIT Date of Service: 08/13/21 MR#: [id number] Acct: [id number] Name: MAK WILLSON Rep #: [id number] : 1950 Provider: ARMANDO mcgovern Age/Sex: 70/F Location[place] [facility] [place] [facility] [place] Status: Signed Intake Vital Signs 08/13/21 09:36 08/13/21 09:38 Height 5 ft 8 in 5 ft 8 in Weight: 138 lb 4 oz BMI 20.9 BP 120/70 Intake Visit Reasons: Annual (SINGING MESSENGER) Allergies No Known Allergies Allergy (Verified 08/13/21 09:37) Medications sumatriptan succinate 50 mg tablet (Imitrex) 50 mg PO ONCE 03/02/17 [History Confirmed 08/13/21] estradiol (Estrace) See Rx Instructions vaginal .COMPLEX #42.5 grams 08/01/19 [Rx Confirmed 08/13/21] clobetasol 0.05 % topical cream 1 applic topical .COMPLEX #15 grams 08/08/20 [Rx Confirmed 08/13/21] Post menopausal: Yes PFSH Medical History (Updated 08/13/21 @ 10:13 by Sakina Osborn TELEPHONE DIAPHRAGM ASSEMBLER, ARMANDO) Iritis Surgical History gallbladder surgery H/O knee surgery History of appendectomy History of hysterectomy Family History Father Hypertension Mother Hypertension Social History Smoking Status: Never smoker alcohol intake: never substance use type: does not use caffeine: Yes what type of physical activity do you participate in: walking frequency: 5-6 times per week seatbelt use: always do you feel safe at home: Yes additional social history: Renetta Bowden Retired Pregancy History 3 Elective abortions Hx Para 3 Spontaneous abortions Hx # Term Pregnancies Ectopic pregnancies Hx # Pregnancies Multiple births # of living children Past Pregnancies Del. Date Name GA/Weeks Outcome Route Bth Weight Infant Gen Labor Lgth Anesthesia Del Locatn Provider FOB Unknown 1973 Bobo Unknown 1976 Aren Unknown 1980 [facility] Encounter for routine gynecological examination Details: MAK WILLSON is a 70 year old who presents for annual exam. No SINGING MESSENGER concerns. Personnel stress with parents and health issues. Last PAP: na History of abnormal PAP: no Last mammogram: 07/2020 History of abnormal mammogram: no Colon cancer screenin11/2019 Other preventative health care screenings: Farhat ROS Const Constitutional: Denies fatigue, weight gain or weight loss Cardio Card: Denies chest pain Resp Resp: Denies cough or dyspnea on exertion GI GI: Denies abdominal pain, bloating, change in stool character, constipation or vomiting : Reports as per HPI; Denies difficulty voiding, pelvic pain, urinary frequency, urinary incontinence, urinary urgency, vaginal discharge or vaginal pruritus Exam Const General: cooperative, healthy appearing, no acute distress and well developed Orientation: alert, oriented to person and oriented to place HENMT Head: normal to inspection Neck Neck: normal visual inspection Thyroid: thyroid normal Lymphatic: no lymphadenopathy noted Chest Breast inspection: normal inspection of the breasts and normal inspection of the axillae Breast palpation: normal palpation of the breasts, normal palpation of the axillae and no axillary lymphadenopathy Resp Effort Inspection: normal respiratory effort GI Palpation: soft, no masses and nontender Rectal Exam: deferred External Female Exam: normal external appearance and normal appearance of the urethra Urethra: normal appearance of the urethra and normal palpation Speculum Exam - Vagina: normal vaginal discharge and vagina atrophic Speculum Exam - Cervix: absent Bimanual Exam- Vagina Uterus: normal bimanual exam and uterus absent Bimanual Exam- Adnexa, other: normal adnexae, no masses, normal and non-tender Pelvic Support: normal Neuro General: patient alert and patient oriented x3 Psych Affect: normal affect Coding Level of Care Code MC Pelvic/Breast Diagnoses Encounter for routine gynecological examination Z01.419 Vaginal atrophy N95.2 Lichen sclerosus L90.0 Assessment and Plan Assessment and Plan (1) Encounter for routine gynecological examination: (2) Vaginal atrophy: Status: Acute Comment: enc routine use of estradiol cream (3) Lichen sclerosus: Status: Acute Comment: rare need for clobetesol Orders: Orders SCRN MAMM (CAD)W/JEFF BILAT Today Plan Completed breast and pelvic exam Reviewed diet and exercise Pap na Mammogram today pending breast self exam encouraged monthly Encourage use of estradiol cream Colonoscopy 2020 Bone density with PCP Offered and declines medication to help with stressors of care of parents. Other ways of involving sibling discussed. RTO 1 year, prn with problems Sakina Osborn CNP 08/13/21 1014 <Electronically signed by Sakina Osborn TELEPHONE DIAPHRAGM ASSEMBLER TELEPHONE DIAPHRAGM ASSEMBLER-C> Date Sakina Osborn TELEPHONE DIAPHRAGM ASSEMBLER TELEPHONE DIAPHRAGM ASSEMBLER-C Cosigner Signature: Date (if applicable) CC: Brittany Dougherty DO Work Phone: Start: 08-13-2021 Screening mammography Fatou Dougherty Work Phone: Start: 08-13-2021 End: 08-13-2021 SCRN MAMM (CAD)W/JEFF BILAT Procedure Note: See Note; NOTES: [facility] Imaging Services [address] [place] [id number] SCRN MAMM (CAD)W/JEFF BILAT MR#: [id number] Acct: [id number] Name: MAK WILLSON Rep #: [id number] : 1950 F 70 From: Jonnie sesay MD PCP: Dr. Brittany Dougherty DO Status: REG CLI Study: SCRN MAMM (CAD)W/JEFF BILAT Date of Exam: 06/30 Exam# [id number] Ordering Dr: Sakina Osborn TELEPHONE DIAPHRAGM ASSEMBLER TELEPHONE DIAPHRAGM ASSEMBLER -C MAMMOGRAPHY - BILATERAL SCREENING REASON FOR EXAM: Female, 70 years old. Routine annual screening examination. PERTINENT HISTORY: Non-contributory. TECHNIQUE: Digital bilateral breast jeff (3D mammographic acquisition) in the CC and MLO projections. 2-D mediolateral oblique (MLO) and craniocaudad (CC) views of both breasts were obtained. CAD: Full Field Digital Mammography with Computer Added Detection was performed. COMPARISON: Comparison is made with prior study dated 08/08/2020 and 08/01/2019. FINDINGS: Breast Composition: The breasts are heterogeneously dense, which may obscure small masses. There are no dominant masses or suspicious calcifications. No other significant abnormalities are identified. There has been no significant change since the prior study. BI/SCRN MAMM (CAD)W/JEFF BILAT IMPRESSION: Stable bilateral screening mammogram. Yearly follow-up mammogram recommended. (A) ASSESSMENT CATEGORY: BIRADS Category 1: Negative. A letter regarding these results will be sent to the patient by the facility within 30 days. Approximately 10% of breast cancers are not detected by mammography. A normal mammogram should not delay biopsy of a clinically suspicious abnormality. [id number] Electronically Signed: Jonnie Reid MD at 10:27 EDT Reading Location ID and State: [address] [place] [address] , Service support , CC: ARMANDO Osborn; Dr. Brittany Dougherty DO Vp: Signed Brittany Dougherty DO Work Phone: Start: 03-06-2021 End: 03-06-2021 Echo Complete Comments: See Note; NOTES: [facility] [address] [place] [address] Echo Complete 03/06/21 1005 MR#: [id number] Acct: [id number] Name: MAK WILLSON Rep #: [id number] : 1950 70 From: Iggy Dyson MD Attending Dr: Dr. Brittany Dougherty, Status: R EG CLI Ordering Dr: Brittany Dougherty DO Date: 03/06/21 Location: [facility] Sex: F C Admitted: Reason For Study: Near Syncope Procedure This was a 2D Doppler, Color Flow transthoracic echocardiogram. The study was technically difficult. Exam performed in department. Left Ventricle Normal LV size. Apical false tendon noted. Left ventricular systolic function is normal. The estimated ejection fraction is 60 %. No evidence for diastolic dysfunction. No regional wall motion abnormalities noted. Right Ventricle Normal RV size. Prominent moderator band. Normal systolic function. Atria Normal left atrium. Normal right atrium. No doppler evidence for ASD. Mitral Valve There is no mitral annular calcification. Anterior leaflet diffuse mitral valve thickening. Equivocal mitral valve prolapse. Trivial mitral valve insufficiency. Tricuspid Valve Normal tricuspid valve. Mild tricuspid valve insufficiency. Right ventricular systolic pressure estimated to be 21 mmHg. Aortic Valve Trisinus/trileaflet aortic valve. Normal aortic valve. Pulmonic Valve The pulmonic valve is not well visualized. Trivial pulmonic valve insufficiency. Great Vessels Normal sized aortic root. Pericardium/Pleural No pericardial effusion. MMode/2D Measurements Calculations LVIDd: 4.0 cm IVSd: 0.78 cm Ao root diam: 3.0 cm LVIDs: 2.6 cm LVPWd: 0.68 cm LA dimension: 2.6 cm FS: 36.0 % LAV(MOD-sp4): 17.0 ml LA A4 area: 10.5 cm2 RA A4 area: 11.7 cm2 Time Measurements MV dec time: 0.25 sec Doppler Measurements Calculations MV E max jordan: 57.8 cm/sec Lat Peak E' Jordan: 10.7 cm/sec Med Peak E' Jordan: 11.8 cm/sec MV A max jordan: 78.9 cm/sec E/E' lat: 5.4 E/E' med: 4.9 MV E/A: 0.73 MV V2 max: 86.8 cm/sec MV P1/2t max jordan: 87.4 cm/sec Ao V2 max: 116.8 cm/sec MV max P.0 mmHg MV P1/2t: 81.9 msec Ao max P.5 mmHg MV V2 mean: 48.9 cm/sec MV dec slope: 312.5 cm/sec2 MV mean P.1 mmHg MVA(P1/2t): 2.7 cm2 MV V2 VTI: 24.8 cm LV V1 max: 83.4 cm/sec PA V2 max: 67.9 cm/sec TR max jordan: 214.3 cm/sec LV V1 max P.8 mmHg TR max P.4 mmHg ECHO/Echo Complete Interpretation Summary The study was technically difficult. Left ventricular systolic function is normal. The estimated ejection fraction is 60 %. Apical false tendon noted. Prominent moderator band. Anterior leaflet diffuse mitral valve thickening. Equivocal mitral valve prolapse. Trivial mitral valve insufficiency. Mild tricuspid valve insufficiency. Trivial pulmonic valve insufficiency. Right ventricular systolic pressure estimated to be 21 mmHg. No evidence for diastolic dysfunction. ____ _ Ordering Physician: Brittany Dougherty Referring Physician: Brittany Dougherty Performed By: Nickolas Jay RCS 03/06/21 1253 Date Iggy Dyson MD CC: Dr. Brittany Dougherty DO Date Dictated: 03/06/21 1005 Date Transcribed: 03/06/21 125 Vp: Signed Brittany Dougherty DO Work Phone: Start: 12-04-2020 End: 12-05-2020 Dexa Bone Density Study Comments: See Note; NOTES: [facility] Imaging Services [address] [place] [address] Dexa Bone Density Study MR#: [id number] Acct: [id number] Name: MAK WILLSON Fatou Rep #: [id number] : 1950 F 69 From: Jonnie sesay MD PCP: Dr. Brittany Dougherty DO Status: [facility] CLI Study: Dexa Bone Density Study Date of Exam: 12/04/20 Exam# [id number] Ordering Dr: Brittany Dougherty DO STUDY: DUAL ENERGY X-RAY ABSORPTIOMETRY / DXA REASON FOR EXAM: Female, 69 years old. [id number]. The patient is postmenopausal. TECHNIQUE: Bone Mineral Density (BMD) measurements of lumbar spine and bilateral hips were obtained. COMPARISON: None. FINDINGS: Lumbar Spine (L1-L4): g/cm2 (0.953) / T-score (-0.9) / Z-score (1.1) Findings are suggestive of normal bone density with a low fracture risk. Left Femur Total: g/cm2 (0.760) / T-score (-1.5) / Z-score (-0.1) Left Femoral Neck: g/cm2 (0.650) / T-score (-1.8) / Z-score (-0.1) Right Femur Total: g/cm2 (0.829) / T-score (-0.9) / Z-score (0.5) Right Femoral Neck: g/cm2 (0.645) / T-score (-1.8) / Z-score (-0.1) BD/Dexa Bone Density Study IMPRESSION: The patient is considered osteopenic as outlined below according to World Lobo Organization (WHO) criteria with a moderate fracture risk. Reference Information: The T-score is the number of standard deviations above or below the standard which is normal for young adults at their peak bone mineral density. The World Health Organization (WHO) interprets the T-scores as follows: Above -1 Normal bone density Between -1 and -2.5 Osteopenia Equal to / or below -2.5 Osteoporosis As a practical clinical guideline, osteopenia may be graded as follows: Mild -1 through -1.5 Moderate -1.6 through -2.0 Severe -2.1 through -2.4 The Z-score is the number of standard deviations above or below age-matched controls. A Z-score of less than -1.5 would be considered abnormal. References: 1. NIH Osteoporosis and Related Bone Diseases www osteo.org 2. International Society for Clinical Densitometry www iscd.org 3. National Osteoporosis Foundation www nof.org Electronically Signed: Jonnie Reid MD at 13:18 EDT , Service support , CC: Dr. Brittany Dougherty DO Vp: Signed Brittany Dougherty DO Work Phone: Start: 05-09-2015 End: 05-09-2015 Chest PA and Lateral Comments: See Note; NOTES: [facility] Imaging Services [address] [place], [place] [address] [address] 4d Chest PA and Lateral MR#: [id number] Acct: [id number] Name: MAK WILLSON Rep #: [id number] : 1950 F 64 From: Ziyad Vazquez DO PCP: Rg Gonzalez Status: REG CLI Study: Chest PA and Lateral Date of Exam: 05/09/15 Exam# [id number] Ordering Dr: Rg Gonzalez STUDY: X-RAY CHEST REASON FOR EXAM: Female, 64 years old. Previous pneumonia, currently no symptoms TECHNIQUE: PA and lateral views of the chest. COMPARISON: CT 03/21/15, chest x-ray 03/19/15, FINDINGS: The lungs are clear and expanded. There is no demonstrated pleural abnormality. Normal size heart. Normal mediastinum and raisa. Normal visualized pulmonary arteries. Normal visualized aortic arch and descending thoracic aorta. Normal visualized thoracic spine. Normal visualized ribs, clavicles, and shoulders. Pectus excavatum is similar. There is no demonstrated abnormality of the visualized soft tissue structures of the upper abdomen. IMPRESSION: Normal x-ray examination of the chest. Electronically Signed: Ziyad Vazquez DO at 12:35 EDT Tel , Service support [phone], RAD/Chest PA and Lateral IMPRESSION: Normal x-ray examination of the chest. Electronically Signed: Ziyad Vazquez DO at 12:35 EDT Tel , Service support [phone], CC: gR Gonzalez Vp: Signed Rg Gonzalez MD Work Phone: Start: 03-21-2015 End: 03-21-2015 CTA Chest W/WO Contrast Comments: See Note; NOTES: [facility] Imaging Services [address] [place] [address] Verdana 4d CTA Chest W/WO Contrast MR#: [id number] Acct: [id number] Name: MAK WILLSON Rep #: [id number] : 1950 F 64 From: Sanju Green MD PCP: Mary Ann Westfall MD Status: REG CLI Study: CTA Chest W/WO Contrast Date of Exam: 03/21/15 Exam# [id number] Ordering Dr: Rg Gonzalez STUDY: CTA CHEST REASON FOR EXAM: Female, 64 years old. Abnormal CXR, right middle lobe infiltrate, ? pulmonary embolism. Complains of right chest pain. RADIATION DOSAGE (If Supplied By Facility): CTDIvol = ( 10.85 ) mGy, DLP = ( 472.27 ) mGycm TECHNIQUE: The examination was performed with the intravenous administration of 75mL ml of Isovue 370 contrast material. Post-processing of the angiographic images was performed, with multiplanar reformation and 3D reconstruction. COMPARISON: : CR - Chest - 09:27 FINDINGS: Normal enhancement of the main pulmonary artery and right and left pulmonary arteries. Normal enhancement of the bilateral peripheral pulmonary arteries. There is no demonstrated pulmonary embolism. Normal thoracic aorta and visualized great vessels. There is no demonstrated aortic dissection. Normal heart and pericardium. Normal mediastinum. Normal hilar regions. Normal visualized trachea and bronchi. The lungs are well expanded. Normal pulmonary parenchyma. Normal pleura. There is pectus excavatum deformity of the chest wall. Normal osseous structures. Normal visualized upper abdomen. IMPRESSION: Normal CTA chest examination, without a demonstrated pulmonary embolism or arterial dissection. Electronically Signed: Crystal Green MD at 15:24 EST Tel , Service support [phone], CC: Mary Ann Westfall MD; Rg Gonzalez Vp: Signed Rg Gonzalez MD Work Phone: Start: 03-19-2015 End: 03-19-2015 Chest PA and Lateral Comments: See Note; NOTES: [facility] Imaging Services [address] [place] [address] Verdana 4d Chest PA and Lateral MR#: [id number] Acct: [id number] Name: MAK WILLSON Rep #: [id number] : 1950 F 64 From: Gonzalo Kaminski DO PCP: Mary Ann Westfall MD Status: REG CLI Study: Chest PA and Lateral Date of Exam: 03/19/15 Exam# [id number] Ordering Dr: Rg Gonzalez STUDY: X-RAY CHEST REASON FOR EXAM: Female, 64 years old. Pneumonia. TECHNIQUE: PA and lateral views of the chest. COMPARISON: February 05, 2015. FINDINGS: The lungs are expanded. There is a right middle lobe density which appears unchanged from previous examination. There is no demonstrated pleural abnormality. Normal size heart. Normal mediastinum and raisa. Normal visualized pulmonary arteries. Normal visualized aortic arch and descending thoracic aorta. Normal visualized thoracic spine. Normal visualized ribs, clavicles, and shoulders. There is no demonstrated abnormality of the visualized soft tissue structures of the upper abdomen. IMPRESSION: Persistent right middle lobe density. Question infiltrate. Electronically Signed: Gonzalo Kaminski DO at 14:51 EST Tel [phone], Service support [phone], RAD/Chest PA and Lateral IMPRESSION: Persistent right middle lobe density. Question infiltrate. Electronically Signed: Gonzalo Kaminski DO at 14:51 EST Tel [phone], Service support [phone], CC: Mary Ann Westfall MD; Rg Gonzalez Vp: Signed Rg Gonzalez MD Work Phone: Start: 02-07-2015 End: 02-07-2015 12 lead ECG Comments: See Note; NOTES: [facility] Cardiovascular Services [address] [place] [address] 12 Lead EKG 02/05/152008 MR#: [id number] Acct: [id number] Name: MAK WILLSON Rep #: [id number] : 1950 64 From: Iggy Dyson MD Attending Dr: Status: DEP ER Ordering Dr: Bhakti Guzmán MD Date: 02/05/15 Location: ED Sex: F C Admitted: Test Reason : CP Blood Pressure : / mmHG Vent. Rate : 080 BPM Atrial Rate : 080 BPM P-R Int : 156 ms QRS Dur : 114 ms QT Int : 388 ms P-R-T Axes : 065 022 031 degrees QTc Int : 447 ms Normal sinus rhythm Low voltage QRS (limb leads) Incomplete right bundle branch block Confirmed by KARIS LUNDY, IGGY ([id number]), television news video editor KAIN PATTERSON ([id number]) on 02/07/2015 12:08:34 PM Referred By: NOEMI Confirmed By:IGGY DYSON MD 02/07/15 1208 Date Iggy Dyson MD CC: Mary Ann Westfall MD Date Dictated: 02/05/152008 Date Transcribed: 02/05/152008 Vp: Signed Rg Gonzalez MD Work Phone: Start: 02-06-2015 End: 02-06-2015 Emergency Department Summary Comments: See Note; NOTES: [facility] Medical Records Department [address] [place] [address] Emergency Department Summary MR#: [id number] Acct: [id number] Name: MAK WILLSON Rep #: [id number] : 1950 64 From: Bhakti Guzmán MD PCP: Mary Ann Westfall MD Status: [facility] DATE OF SERVICE: 02/05/2015 CHIEF COMPLAINT: Chest pain. ABRAHAM HISTORY: The patient is a 64-year-old female with recent URI symptoms and cough and congestion. She does have subjective low-grade fevers. She reports left arm aching. It started around 6:30 this evening. She has got some sore muscles of her left shoulder blade. She states she had some rare occasional pain in the epigastric and sternal area. She is not sure if this is cardiac related or secondary to her recent cough and congestion. She has no significant cardiac history, however, does have mitral valve prolapse. There is no family history. She is not a smoker. PHYSICAL EXAMINATION: VITAL SIGNS: Unremarkable. HEAD AND NECK: Normal. HEART: Regular. LUNGS: Clear. ABDOMEN: Soft, nontender. BACK: Reveals reproducible tenderness on the medial right scapula that recreates her pain. She has strong distal pulses. Normal strength and sensation. HOSPITAL COURSE: Portable chest x-ray shows chronic changes, no infiltrate. EKG is sinus at 80 with no sign of acute ischemia. CBC and chemistry studies are normal. Cardiac enzymes are negative. The patient was given aspirin. She declined anything further for pain initially. The patient's pain appears to be musculoskeletal; however, she did present just 2 hours after onset, 2-hour rule out was pursued. Repeat EKG is unchanged and repeat enzymes are also negative. At this time, the patient wishes to go home and follow up with her PCP. We will give her a dose of [place] Simon here and prescription for home to help with her muscle pain. DISPOSITION: Discharge. IMPRESSION: 1. Atypical chest pain. 2. Left trapezius spasm. Bhakti Guzmán MD T: NTS JOB: [id number] 02/06/15 0041 <Electronically signed by Bhakti Guzmán MD> Date Bhakti Guzmán MD Cosigner Signature (If Indicated): Date CC: Mary Ann Westfall MD Date Dictated: 02/05/152253 Date Transcribed: 02/05/152253 Vp: Signed Rg Gonzalez MD Work Phone: Start: 02-05-2015 End: 02-05-2015 Discharge Instruction Comments: See Note; NOTES: [facility] Medical Records Department [address] [place] [address] Discharge Instruction 02/05/152250 MR#: [id number] Acct: [id number] Name: MAK WILLSON Rep #: [id number] : 1950 64 From: Bhakti Guzmán MD PCP: Mary Ann Westfall MD Status: REG ER ED Disposition - Plan for ED Patient: Disposition: Home or Assisted Living 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: Chest Pain Instructions: ED Chest Pain, Noncardiac, ED Muscle Spasm Prescriptions: Hydrocodone Bitart/Apap 5-325 [[place] Simon 5/325] 1 - 2 tablet PO Q4H PRN PRN #20 tablet PRN Reason: Pain Referrals: Mary Ann Westfall MD [Primary Care Provider] - 5-7 Days What to do if you have Problems For any increased pain, shortness of breath, bleeding, nausea or vomiting, chest pain, or any unexpected problems, contact your doctor. Call [facility] ([phone]) or report to the closest Emergency Room. Call 911 if necessary. 02/05/152253 <Electronically signed by Bhakti Guzmán MD> Date Bhakti Guzmán MD Cosigner Signature (If Indicated): Date CC: Mary Ann Gonzalez MD Work Phone: Start: 02-05-2015 End: 02-06-2015 Chest 1 View (Portable) Comments: See Note; NOTES: [facility] Imaging Services [address] [place] [address] [address] 4d Chest 1 View (Portable) MR#: [id number] Acct: [id number] Name: MAK WILLSON Rep #: [id number] : 1950 F 64 From: Javad Mckeon MD PCP: Mary Ann Westfall MD Status: DEP ER Study: Chest 1 View (Portable) Date of Exam: 02/05/15 Exam# [id number] Ordering Dr: Bhakti Guzmán MD STUDY: X-RAY CHEST REASON FOR EXAM: Female, 64 years old. Fever and cough x2 days TECHNIQUE: Single AP portable view of the chest. COMPARISON: None. FINDINGS: EKG leads overlie the chest There is underlying COPD with chronic interstitial changes. There is subtle opacification in the right cardiophrenic angle which could be infiltrate or atelectasis. Followup recommended to assure resolution. There is no demonstrated pleural abnormality. There is borderline cardiomegaly. Normal mediastinum and raisa. Normal visualized pulmonary arteries. Normal visualized aortic arch and descending thoracic aorta. Normal visualized thoracic spine. Normal visualized ribs, clavicles, and shoulders. There is no demonstrated abnormality of the visualized soft tissue structures of the upper abdomen. IMPRESSION: COPD with opacification in the right cardiophrenic angle suggestive of infiltrate or atelectasis. Followup recommended to assure resolution Borderline cardiomegaly Electronically Signed: Ricki Mckeon MD at 8:21 EST Tel , Service support [phone], RAD/Chest 1 View (Portable) IMPRESSION: COPD with opacification in the right cardiophrenic angle suggestive of infiltrate or atelectasis. Followup recommended to assure resolution Borderline cardiomegaly Electronically Signed: Ricki Mckeon MD at 8:21 EST Tel , Service support [phone], CC: Mary Ann Westfall MD; Bhakti Guzmán MD Vp: Signed Rg Gonzalez MD Work Phone: Start: 03-11-2013 End: 03-11-2013 Abdomen with IV Contrast Comments: See Note; NOTES: [facility] Imaging Services [address] [place] [address] CAT Scan Report MR#: [id number] Acct: [id number] Name: MAK WILLSON Rep #: [id number] : 1950 F 62 From: Jonnie Reid MD PCP: Mary Ann Westfall MD Status: REG CLI Study: Abdomen with IV Contrast Date of Exam: 03/11/13 Exam# [id number] Ordering Dr: Mary Ann Westfall MD STUDY: CT ABDOMEN WITH CONTRAST REASON FOR EXAM: Female, 62 years old. Epigastric pain. RADIATION DOSAGE (If Supplied By Facility): CTDIvol = ( 8.83 ) mGy, DLP = ( 449.74 ) mGycm TECHNIQUE: Transaxial images were obtained post I.V. administration of 100 ml of Isovue 300 contrast. Sagittal and coronal images were reconstructed. 3-D images were reconstructed. COMPARISON: None. FINDINGS: Minimal increased linear markings at the left lung base suggestive of mild scarring. The visualized portions of the heart are within normal limits. Mild degree of intrahepatic biliary ductal dilatation. The patient is status post cholecystectomy. Normal spleen. Normal pancreas. Normal bilateral adrenal glands. Mild degree of bilateral hydronephrosis. Normal visualized stomach. Normal small intestine. Normal colon. The patient is status post appendectomy. The patient is status post hysterectomy. Normal abdominal aorta. Normal inferior vena cava. Normal retroperitoneum. Normal abdominal wall. Mild degree of dextroconvex scoliosis. IMPRESSION: Mild intrahepatic biliary ductal dilatation. The patient is status post cholecystectomy. Electronically Signed: Jonnie Reid M.D. at 13:27 EST , Service support [phone], CC: Mary Ann Westfall MD Vp: Signed Mary Ann Westfall MD Work Phone: Abdominal hysterectomy Marcello a Slarb [employer] Comment on above: 1997 Abdominal hysterectomy Jasmi n Gravius [employer] Comment on above: 1997 Abdominal hysterectomy Dakot a Dumfries [employer] Comment on above: 1997 Cholecystectomy Geno Slarb [employer] Comment on above: 1989 Cholecystectomy Macey Gravi OV[employer] TENDER Comment on above: 1989 Cholecystectomy Yovany Shirlene [employer] Comment on above: 1989 H/O: tubal ligation Geno S larb [employer] Comment on above: 1980 H/O: tubal ligation Macey G ravius OV[employer] T[employer]ER Comment on above: 1980 H/O: tubal ligation Yovany P ryor [employer] Comment on above: 1980 History of appendectomy Tressa la Slarb [employer] HEL[employer] Comment on above: 13 yrs old History of appendectomy Jasm in Gravius 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 Comment on above: 13 yrs old History of appendectomy Dako ta Shirlene [employer] Comment on above: 13 yrs old Past history of procedure An albin Slarb [employer] Comment on above: 2019 dr marcos sprague wnl per pt Past history of procedure Ja alan Lopezius OVEN TENDER Comment on above: 2019 dr marcos sprague wnl per pt Past history of procedure Da griselda Shirlene [employer] Comment on above: 2019 dr marcos sprague wnl per pt Plan of Treatment Date Care Activity Detail Author Start: 09-04-2022 Procedure Education Eprescribed prescriptions (G8553) [facility]; [facility] Work Phone: Start: 09-04-2022 Assay of gammaglobulin iga igd igg igm each Celiac Disease Comphrehensive Profile (44394) [facility]; [facility] Work Phone: Start: 09-04-2022 Cyanocobalamin vitamin b-12 VITAMIN B-12 (CYANOCOBALAMIN) (65309) [facility]; [facility] Work Phone: Start: 09-04-2022 25 hydroxy includes fractions if performed CALCIFEDIOL (72552) [facility]; [facility] Work Phone: Start: 09-04-2022 Assay of magnesium MAGNESIUM (51854) [facility]; [facility] Work Phone: Start: 09-04-2022 Elastase pancreatic fecal qual/semi-suri ASSAY, ELASTASE, PANCREATIC, FECAL (65576) [facility]; [facility] Work Phone: Start: 09-04-2022 Assay of thyroid stimulating hormone tsh TSH (33862) [facility]; [facility] Work Phone: Start: 09-04-2022 Comprehensive metabolic panel METABOLIC PANEL, COMPREHENSIVE (54595) [facility]; [facility] Work Phone: Start: 09-04-2022 Blood count complete auto&auto difrntl wbc CBC W/AUTO DIFF WBC (34947) [facility]; [facility] Work Phone: Start: 02-20-2021 Procedure Education Eprescribed prescriptions (G8553) [facility]; [facility] Work Phone: Start: 02-20-2021 Provider Instructions for Treatment *palpitation discusssion [facility]; [facility] Work Phone: Start: 02-20-2021 Blood count complete auto&auto difrntl wbc CBC W/AUTO DIFF WBC (21050) [facility]; [facility] Work Phone: Start: 02-20-2021 Comprehensive metabolic panel METABOLIC PANEL, COMPREHENSIVE (03499) [facility]; [facility] Work Phone: Start: 02-20-2021 Assay of thyroid stimulating hormone tsh TSH (56613) [facility]; [facility] Work Phone: Start: 12-17-2020 Procedure Education Eprescribed prescriptions (G8553) [facility]; [facility] Work Phone: Start: 12-17-2020 Provider Instructions for Treatment [facility]; [facility] Work Phone: Start: 11-15-2020 Procedure Education Eprescribed prescriptions (G8553) [facility]; [facility] Work Phone: Start: 11-15-2020 Provider Instructions for Treatment [facility]; [facility] Work Phone: Start: 10-31-2020 Procedure Education Eprescribed prescriptions (G8553) [facility]; [facility] Work Phone: Start: 05-22-2015 Procedure Education Eprescribed prescriptions (G8553) [facility]; [facility] Work Phone: Start: 05-02-2015 Procedure Education Eprescribed prescriptions (G8553) [facility]; [facility] Work Phone: Start: 05-02-2015 Provider Instructions for Treatment Follow up in 1 month [facility]; [facility] Work Phone: Start: 04-04-2015 Patient Education [facility]; [facility] Work Phone: Start: 04-04-2015 Procedure Education Eprescribed prescriptions (G8553) [facility]; [facility] Work Phone: Start: 04-04-2015 Provider Instructions for Treatment [facility]; [facility] Work Phone: Start: 04-04-2015 Blood count complete auto&auto difrntl wbc CBC, PLATELETS & AUT DIFF (02221) [facility]; [facility] Work Phone: Start: 03-21-2015 Procedure Education Eprescribed prescriptions (G8553) [facility]; [facility] Work Phone: Start: 02-13-2015 Procedure Education Eprescribed prescriptions (G8553) [facility]; [facility] Work Phone: Start: 02-13-2015 Comprehensive metabolic panel METABOLIC PANEL, COMPREHENSIVE (15385) [facility]; [facility] Work Phone: Start: 02-13-2015 Assay of thyroid stimulating hormone tsh TSH (THYROID STIMULATING HORMONE) (24947) [facility]; [facility] Work Phone: Start: 02-13-2015 Cyanocobalamin vitamin b-12 VITAMIN B-12 (CYANOCOBALAMIN) (10173) [facility]; [facility] Work Phone: Start: 02-13-2015 1 25 dihydroxy includes fractions if performed VITAMIN D, 1, 25-DIHYDROXY (29862) [facility]; [facility] Work Phone: Start: 02-13-2015 Lipid panel LIPID PANEL (70971) [facility]; [facility] Work Phone: Start: 11-22-2013 Patient Education Flu (Influenza) *: flu shot [facility]; [facility] Work Phone: Start: 10-11-2013 Hepatic function panel HEPATIC FUNCTION PANEL (50338) [facility]; [facility] Work Phone: Start: 04-12-2013 Patient Education Stress Management: Brief Version *: stress [facility]; [facility] Work Phone: Start: 03-11-2013 Hepatic function panel HEPATIC FUNCTION PANEL (49039) [facility]; [facility] Work Phone: Comment on above: add to labs already drawn Start: 03-11-2013 Assay of lipase Lipase (35415) [facility]; [facility] Work Phone: Comment on above: add to labs already drawn Start: 03-11-2013 Assay of amylase Amylase (30606) [facility]; [facility] Work Phone: Comment on above: add to labs already drawn Start: 03-08-2013 25 hydroxy includes fractions if performed CALCIFIDIOL (45342) VIT D 25 [facility]; [facility] Work Phone: Start: 03-08-2013 Assay of thyroid stimulating hormone tsh TSH (75336) [facility]; [facility] Work Phone: Start: 03-08-2013 Comprehensive metabolic panel Metabolic Panel, Comprehensive (59867) [facility]; [facility] Work Phone: Comment on above: copy to radiology [facility] Start: 11-02-2012 Patient Education [facility]; [facility] Work Phone: Start: 07-02-2012 Patient Education Irritable Bowel Syndrome (IBS): Brief Version *: irritable bowel syndrome [facility]; [facility] Work Phone: Start: 03-30-2012 Patient Education Flu Shots (Influenza Vaccine): prevention [facility]; [facility] Work Phone: Start: 11-18-2011 Provider Instructions for Treatment [facility]; [facility] Work Phone: Start: 07-12-2008 Provider Instructions for Treatment [facility]; [facility] Work Phone: Start: 06-23-2008 Provider Instructions for Treatment Shoulder Injection [facility]; [facility] Work Phone: Start: 03-17-2008 Provider Instructions for Treatment [facility]; [facility] Work Phone: Start: 08-11-2007 Assay of triiodothyronine t3 free T3, FREE (TRIDOTHYRONINE) (48607) [facility]; [facility] Work Phone: Start: 08-11-2007 Assay of free thyroxine T4, FREE (THYROXINE) (37294) [facility]; [facility] Work Phone: Start: 08-11-2007 Assay of thyroid stimulating hormone tsh TSH (89414) [facility]; [facility] Work Phone: Start: 04-06-2007 Provider Instructions for Treatment [facility]; [facility] Work Phone: Start: 04-06-2007 Potassium serum plasma/whole blood Potassium Serum (07479) [facility]; [facility] Work Phone: Start: 04-06-2007 Assay of magnesium Magnesium (93810) [facility]; [facility] Work Phone: Comment on above: 2 week Start: 04-06-2007 Creatine kinase isoenzymes CPK TOTAL & ISOENZYMES (35325) [facility]; [facility] Work Phone: [facility]; [facility] Work Phone: [facility]; [facility] Work Phone: [facility]; [facility] Work Phone: [facility] Work Phone: [facility] Work Phone: [facility] Work Phone: [facility] Work Phone: [facility] Work Phone: [facility]; [facility] Work Phone: [facility]; [facility] Work Phone: [facility]; [facility] Work Phone: [facility]; [facility] Work Phone: [facility]; [facility] Work Phone: [facility]; [facility] Work Phone[facility]; [facility] Work Phone[facility]; [facility] Work Phone: [facility]; [facility] Work Phone[facility]; [facility] Work Phone: Comprehensive [facility]; [facility] Work Phone: [facility]; [facility] Work Phone: [facility]; [facility] Work Phone: [facility]; [facility] Work Phone: Immunizations Immunization Date Immunization Notes Care Provider [facility] 05-03-2020 Covid (Pfizer) Dr. Brittany Dougherty Work Phone: [facility] 04-12-2020 Covid (Pfizer) Dr. Brittany Dougherty Work Phone: [facility] Payers Date Payer Category Payer Self-pay [id number] 2023 Medicare [id number] 2023 Unknown [id number] Private Health Insurance [facility] [id number] Unknown Unknown [id number] Unknown [id number] Unknown [id number] Social History Date Type Detail Facility Caffeine Use Caffeine Use [facility] Work Phone: Comment on above: 1 cup coffee qd Walks 2 miles 5 days a week in 30 mins. , heterosexua l [employer] Tobacco use: Tobacco use: [facility]; [facility] Work Phone: Start: 08-13-2021 Tobacco smoking stat [facility] Unknown if ever smoked [facility] Start: 1950 Sex Assigned At Female [facility] Evaluation note Note Date & Type Note Facility Evaluation note Diagnosis Onset Date Lichen sclerosus acute Vaginal atrophy acute Encounter for routine gyneco logical examination noneactive [facility] Work Phone: Evaluation note Note Date & Type Note Facility Evaluation note No assessment information availa ble [facility] Work Phone: Instructions Note Date & Type Note Facility Instructions Name Patient Instructions Indication:Non-smoker Start:17-Dec-2020 Instruction Type:Provider Instructions for Treatment How to Access Health Information Online using Patient Portal and 3rd [employer] Apps Indication:Non-smoker Start:17-Dec-2020 Instruction Type:Patient Education Patient Instructions Indication:Non-smoker Start:15-Nov-2020 Instruction Type:Provider Instructions for Treatment How to Access Health Information Online using Patient Portal and 3rd [employer] Apps Indication:Non-smoker Start:15-Nov-2020 Instruction Type:Patient Education Patient Instructions Indication:BMI 21.0-21.9, adult Start: Instruction Type:Provider Instructions for Treatment How to Access Health Information Online using Patient Portal and 3rd [employer] Apps Indication:BMI 21.0-21.9, adult Start: Instruction Type:Patient Education How to access health information online Indication:Herpes zoster Start: Instruction Type:Patient Education How to access health information online - Detail Indication:Herpes zoster Start: Instruction Type:Patient Education Patient Instructions Indication:Herpes zoster Start: Instruction Type:Provider Instructions for Treatment How to access health information online Indication:Pneumonia Start: Instruction Type:Patient Education How to access health information online - Detail Indication:Pneumonia Start: Instruction Type:Patient Education Patient Instructions Indication:Pneumonia Start: Instruction Type:Provider Instructions for Treatment DISCONTINUED - CHEST XRAY, PA & LATERAL ([id number]) Indication:Pneumonia Start: Instruction Type:Patient Education How to access health information online Indication:Rib pain on right side Start: Instruction Type:Patient Education How to access health information online - Detail Indication:Rib pain on right side Start: Instruction Type:Patient Education Patient Instructions Indication:Rib pain on right side Start: Instruction Type:Provider Instructions for Treatment How to access health information online Indication:Pneumonia Start: Instruction Type:Patient Education How to access health information online - Detail Indication:Pneumonia Start: Instruction Type:Patient Education Patient Instructions Indication:Pneumonia Start: Instruction Type:Provider Instructions for Treatment How to access health information online Indication:Pneumonia Start:13-Feb-2015 Instruction Type:Patient Education How to access health information online - Detail Indication:Pneumonia Start:13-Feb-2015 Instruction Type:Patient Education Patient Instructions Indication:Pneumonia Start:13-Feb-2015 Instruction Type:Provider Instructions for Treatment Patient Instructions Indication:Stress reaction Start:17-May-2013 Instruction Type:Provider Instructions for Treatment Patient Instructions Indication:Stress reaction Start:12-Apr-2013 Instruction Type:Provider Instructions for Treatment Patient Instructions Indication:Abdominal pain, acute, right upper quadrant Start: 4 Instruction Type:Provider Instructions for Treatment Patient Instructions Indication:Irritable bowel syndrome Start: 3 Instruction Type:Provider Instructions for Treatment Patient Instructions Indication:Migraine Start:14-Sep-2012 Instruction Type:Provider Instructions for Treatment Patient Instructions Indication:Irritable bowel syndrome Start: 3 Instruction Type:Provider Instructions for Treatment Patient Instructions Indication:Abdominal pain, acute, right upper quadrant Start: 3 Instruction Type:Provider Instructions for Treatment [facility]; [facility] Work Phone: Instructions Note Date & Type Note Facility Instructions Name Patient Instructions Indication:Non-smoker Start: 2 Instruction Type:Provider Instructions for Treatment How to Access Health Information Online using Patient Portal and 3rd [employer] Apps Indication:Non-smoker Start: 2 Instruction Type:Patient Education Patient Instructions Indication:Non-smoker Start:17-Dec-2020 Instruction Type:Provider Instructions for Treatment How to Access Health Information Online using Patient Portal and 3rd [employer] Apps Indication:Non-smoker Start:17-Dec-2020 Instruction Type:Patient Education Patient Instructions Indication:Non-smoker Start:15-Nov-2020 Instruction Type:Provider Instructions for Treatment How to Access Health Information Online using Patient Portal and 3rd [employer] Apps Indication:Non-smoker Start:15-Nov-2020 Instruction Type:Patient Education Patient Instructions Indication:BMI 21.0-21.9, adult Start: 1 Instruction Type:Provider Instructions for Treatment How to Access Health Information Online using Patient Portal and 3rd [employer] Apps Indication:BMI 21.0-21.9, adult Start: 1 Instruction Type:Patient Education How to access health information online Indication:Herpes zoster Start: 6 Instruction Type:Patient Education How to access health information online - Detail Indication:Herpes zoster Start: 6 Instruction Type:Patient Education Patient Instructions Indication:Herpes zoster Start: 6 Instruction Type:Provider Instructions for Treatment How to access health information online Indication:Pneumonia Start: 6 Instruction Type:Patient Education How to access health information online - Detail Indication:Pneumonia Start: 6 Instruction Type:Patient Education Patient Instructions Indication:Pneumonia Start: 6 Instruction Type:Provider Instructions for Treatment DISCONTINUED - CHEST XRAY, PA & LATERAL ([id number]) Indication:Pneumonia Start: 6 Instruction Type:Patient Education How to access health information online Indication:Rib pain on right side Start: 6 Instruction Type:Patient Education How to access health information online - Detail Indication:Rib pain on right side Start: 6 Instruction Type:Patient Education Patient Instructions Indication:Rib pain on right side Start: 6 Instruction Type:Provider Instructions for Treatment How to access health information online Indication:Pneumonia Start: 6 Instruction Type:Patient Education How to access health information online - Detail Indication:Pneumonia Start: 6 Instruction Type:Patient Education Patient Instructions Indication:Pneumonia Start: 6 Instruction Type:Provider Instructions for Treatment How to access health information online Indication:Pneumonia Start:13-Feb-2015 Instruction Type:Patient Education How to access health information online - Detail Indication:Pneumonia Start:13-Feb-2015 Instruction Type:Patient Education Patient Instructions Indication:Pneumonia Start:13-Feb-2015 Instruction Type:Provider Instructions for Treatment Patient Instructions Indication:Stress reaction Start:17-May-2013 Instruction Type:Provider Instructions for Treatment Patient Instructions Indication:Stress reaction Start:12-Apr-2013 Instruction Type:Provider Instructions for Treatment Patient Instructions Indication:Abdominal pain, acute, right upper quadrant Start: 4 Instruction Type:Provider Instructions for Treatment Patient Instructions Indication:Irritable bowel syndrome Start: 3 Instruction Type:Provider Instructions for Treatment Patient Instructions Indication:Migraine Start:14-Sep-2012 Instruction Type:Provider Instructions for Treatment Patient Instructions Indication:Irritable bowel syndrome Start: 3 Instruction Type:Provider Instructions for Treatment Patient Instructions Indication:Abdominal pain, acute, right upper quadrant Start: 3 Instruction Type:Provider Instructions for Treatment [facility]; [facility] Work Phone: Instructions Note Date & Type Note Facility Instructions Name Patient Instructions Indication:Non-smoker Start: 2 Instruction Type:Provider Instructions for Treatment How to Access Health Information Online using Patient Portal and 3rd [employer] Apps Indication:Non-smoker Start: 2 Instruction Type:Patient Education Patient Instructions Indication:Non-smoker Start:17-Dec-2020 Instruction Type:Provider Instructions for Treatment How to Access Health Information Online using Patient Portal and [employer]rd [employer] Apps Indication:Non-smoker Start:17-Dec-2020 Instruction Type:Patient Education Patient Instructions Indication:Non-smoker Start:15-Nov-2020 Instruction Type:Provider Instructions for Treatment How to Access Health Information Online using Patient Portal and 3rd [employer] Apps Indication:Non-smoker Start:15-Nov-2020 Instruction Type:Patient Education Patient Instructions Indication:BMI 21.0-21.9, adult Start: 1 Instruction Type:Provider Instructions for Treatment How to Access Health Information Online using Patient Portal and 3rd [employer] Apps Indication:BMI 21.0-21.9, adult Start: 1 Instruction Type:Patient Education How to access health information online Indication:Herpes zoster Start: 6 Instruction Type:Patient Education How to access health information online - Detail Indication:Herpes zoster Start: 6 Instruction Type:Patient Education Patient Instructions Indication:Herpes zoster Start: 6 Instruction Type:Provider Instructions for Treatment How to access health information online Indication:Pneumonia Start: Instruction Type:Patient Education How to access health information online - Detail Indication:Pneumonia Start: 6 Instruction Type:Patient Education Patient Instructions Indication:Pneumonia Start: 6 Instruction Type:Provider Instructions for Treatment DISCONTINUED - CHEST XRAY, PA & LATERAL ([id number]) Indication:Pneumonia Start: 6 Instruction Type:Patient Education How to access health information online Indication:Rib pain on right side Start: 6 Instruction Type:Patient Education How to access health information online - Detail Indication:Rib pain on right side Start: 6 Instruction Type:Patient Education Patient Instructions Indication:Rib pain on right side Start: 6 Instruction Type:Provider Instructions for Treatment How to access health information online Indication:Pneumonia Start: 6 Instruction Type:Patient Education How to access health information online - Detail Indication:Pneumonia Start: 6 Instruction Type:Patient Education Patient Instructions Indication:Pneumonia Start: 6 Instruction Type:Provider Instructions for Treatment How to access health information online Indication:Pneumonia Start:13-Feb-2015 Instruction Type:Patient Education How to access health information online - Detail Indication:Pneumonia Start:13-Feb-2015 Instruction Type:Patient Education Patient Instructions Indication:Pneumonia Start:13-Feb-2015 Instruction Type:Provider Instructions for Treatment Patient Instructions Indication:Stress reaction Start:17-May-2013 Instruction Type:Provider Instructions for Treatment Patient Instructions Indication:Stress reaction Start:12-Apr-2013 Instruction Type:Provider Instructions for Treatment Patient Instructions Indication:Abdominal pain, acute, right upper quadrant Start: 4 Instruction Type:Provider Instructions for Treatment Patient Instructions Indication:Irritable bowel syndrome Start: 3 Instruction Type:Provider Instructions for Treatment Patient Instructions Indication:Migraine Start:14-Sep-2012 Instruction Type:Provider Instructions for Treatment Patient Instructions Indication:Irritable bowel syndrome Start: 3 Instruction Type:Provider Instructions for Treatment Patient Instructions Indication:Abdominal pain, acute, right upper quadrant Start: 3 Instruction Type:Provider Instructions for Treatment [facility]; [facility] Work Phone: Instructions Note Date & Type Note Facility Instructions Name Patient Instructions Indication:Non-smoker Start: 2 Instruction Type:Provider Instructions for Treatment How to Access Health Information Online using Patient Portal and 3rd [employer] Apps Indication:Non-smoker Start: 2 Instruction Type:Patient Education Patient Instructions Indication:Non-smoker Start:17-Dec-2020 Instruction Type:Provider Instructions for Treatment How to Access Health Information Online using Patient Portal and 3rd [employer] Apps Indication:Non-smoker Start:17-Dec-2020 Instruction Type:Patient Education Patient Instructions Indication:Non-smoker Start:15-Nov-2020 Instruction Type:Provider Instructions for Treatment How to Access Health Information Online using Patient Portal and 3rd [employer] Apps Indication:Non-smoker Start:15-Nov-2020 Instruction Type:Patient Education Patient Instructions Indication:BMI 21.0-21.9, adult Start: 1 Instruction Type:Provider Instructions for Treatment How to Access Health Information Online using Patient Portal and 3rd [employer] Apps Indication:BMI 21.0-21.9, adult Start: 1 Instruction Type:Patient Education How to access health information online Indication:Herpes zoster Start: 6 Instruction Type:Patient Education How to access health information online - Detail Indication:Herpes zoster Start: 6 Instruction Type:Patient Education Patient Instructions Indication:Herpes zoster Start: 6 Instruction Type:Provider Instructions for Treatment How to access health information online Indication:Pneumonia Start: 6 Instruction Type:Patient Education How to access health information online - Detail Indication:Pneumonia Start: 6 Instruction Type:Patient Education Patient Instructions Indication:Pneumonia Start: Instruction Type:Provider Instructions for Treatment DISCONTINUED - CHEST XRAY, PA & LATERAL ([id number]) Indication:Pneumonia Start: 6 Instruction Type:Patient Education How to access health information online Indication:Rib pain on right side Start: 6 Instruction Type:Patient Education How to access health information online - Detail Indication:Rib pain on right side Start: 6 Instruction Type:Patient Education Patient Instructions Indication:Rib pain on right side Start: 6 Instruction Type:Provider Instructions for Treatment How to access health information online Indication:Pneumonia Start: 6 Instruction Type:Patient Education How to access health information online - Detail Indication:Pneumonia Start: 6 Instruction Type:Patient Education Patient Instructions Indication:Pneumonia Start: 6 Instruction Type:Provider Instructions for Treatment How to access health information online Indication:Pneumonia Start:13-Feb-2015 Instruction Type:Patient Education How to access health information online - Detail Indication:Pneumonia Start:13-Feb-2015 Instruction Type:Patient Education Patient Instructions Indication:Pneumonia Start:13-Feb-2015 Instruction Type:Provider Instructions for Treatment Patient Instructions Indication:Stress reaction Start:17-May-2013 Instruction Type:Provider Instructions for Treatment Patient Instructions Indication:Stress reaction Start:12-Apr-2013 Instruction Type:Provider Instructions for Treatment Patient Instructions Indication:Abdominal pain, acute, right upper quadrant Start: 4 Instruction Type:Provider Instructions for Treatment Patient Instructions Indication:Irritable bowel syndrome Start: 3 Instruction Type:Provider Instructions for Treatment Patient Instructions Indication:Migraine Start:14-Sep-2012 Instruction Type:Provider Instructions for Treatment Patient Instructions Indication:Irritable bowel syndrome Start: 3 Instruction Type:Provider Instructions for Treatment Patient Instructions Indication:Abdominal pain, acute, right upper quadrant Start: 3 Instruction Type:Provider Instructions for Treatment [facility]; [facility] Work Phone: Instructions Note Date & Type Note Facility Instructions Name Patient Instructions Indication:BMI 21.0-21.9, adult Start: 3 Instruction Type:Provider Instructions for Treatment How to Access Health Information Online using Patient Portal and 3rd [employer] Apps Indication:BMI 21.0-21.9, adult Start: 3 Instruction Type:Patient Education Patient Instructions Indication:Non-smoker Start: 2 Instruction Type:Provider Instructions for Treatment How to Access Health Information Online using Patient Portal and 3rd [employer] Apps Indication:Non-smoker Start: 2 Instruction Type:Patient Education Patient Instructions Indication:Non-smoker Start:17-Dec-2020 Instruction Type:Provider Instructions for Treatment How to Access Health Information Online using Patient Portal and 3rd [employer] Apps Indication:Non-smoker Start:17-Dec-2020 Instruction Type:Patient Education Patient Instructions Indication:Non-smoker Start:15-Nov-2020 Instruction Type:Provider Instructions for Treatment How to Access Health Information Online using Patient Portal and 3rd [employer] Apps Indication:Non-smoker Start:15-Nov-2020 Instruction Type:Patient Education Patient Instructions Indication:BMI 21.0-21.9, adult Start: 1 Instruction Type:Provider Instructions for Treatment How to Access Health Information Online using Patient Portal and 3rd [employer] Apps Indication:BMI 21.0-21.9, adult Start: 1 Instruction Type:Patient Education How to access health information online Indication:Herpes zoster Start: 6 Instruction Type:Patient Education How to access health information online - Detail Indication:Herpes zoster Start: 6 Instruction Type:Patient Education Patient Instructions Indication:Herpes zoster Start: 6 Instruction Type:Provider Instructions for Treatment How to access health information online Indication:Pneumonia Start: 6 Instruction Type:Patient Education How to access health information online - Detail Indication:Pneumonia Start: 6 Instruction Type:Patient Education Patient Instructions Indication:Pneumonia Start: 6 Instruction Type:Provider Instructions for Treatment DISCONTINUED - CHEST XRAY, PA & LATERAL ([id number]) Indication:Pneumonia Start: 6 Instruction Type:Patient Education How to access health information online Indication:Rib pain on right side Start: 6 Instruction Type:Patient Education How to access health information online - Detail Indication:Rib pain on right side Start: 6 Instruction Type:Patient Education Patient Instructions Indication:Rib pain on right side Start: 6 Instruction Type:Provider Instructions for Treatment How to access health information online Indication:Pneumonia Start: 6 Instruction Type:Patient Education How to access health information online - Detail Indication:Pneumonia Start: 6 Instruction Type:Patient Education Patient Instructions Indication:Pneumonia Start: 6 Instruction Type:Provider Instructions for Treatment How to access health information online Indication:Pneumonia Start:13-Feb-2015 Instruction Type:Patient Education How to access health information online - Detail Indication:Pneumonia Start:13-Feb-2015 Instruction Type:Patient Education Patient Instructions Indication:Pneumonia Start:13-Feb-2015 Instruction Type:Provider Instructions for Treatment Patient Instructions Indication:Stress reaction Start:17-May-2013 Instruction Type:Provider Instructions for Treatment Patient Instructions Indication:Stress reaction Start:12-Apr-2013 Instruction Type:Provider Instructions for Treatment Patient Instructions Indication:Abdominal pain, acute, right upper quadrant Start: 4 Instruction Type:Provider Instructions for Treatment Patient Instructions Indication:Irritable bowel syndrome Start: 3 Instruction Type:Provider Instructions for Treatment Patient Instructions Indication:Migraine Start:14-Sep-2012 Instruction Type:Provider Instructions for Treatment Patient Instructions Indication:Irritable bowel syndrome Start: 3 Instruction Type:Provider Instructions for Treatment Patient Instructions Indication:Abdominal pain, acute, right upper quadrant Start: 3 Instruction Type:Provider Instructions for Treatment [facility]; [facility] Work Phone: Instructions Note Date & Type Note Facility Instructions Name Patient Instructions Indication:BMI 21.0-21.9, adult Start: 3 Instruction Type:Provider Instructions for Treatment How to Access Health Information Online using Patient Portal and 3rd [employer] Apps Indication:BMI 21.0-21.9, adult Start: 3 Instruction Type:Patient Education Patient Instructions Indication:Non-smoker Start: 2 Instruction Type:Provider Instructions for Treatment How to Access Health Information Online using Patient Portal and 3rd [employer] Apps Indication:Non-smoker Start: 2 Instruction Type:Patient Education Patient Instructions Indication:Non-smoker Start:17-Dec-2020 Instruction Type:Provider Instructions for Treatment How to Access Health Information Online using Patient Portal and 3rd [employer] Apps Indication:Non-smoker Start:17-Dec-2020 Instruction Type:Patient Education Patient Instructions Indication:Non-smoker Start:15-Nov-2020 Instruction Type:Provider Instructions for Treatment How to Access Health Information Online using Patient Portal and 3rd [employer] Apps Indication:Non-smoker Start:15-Nov-2020 Instruction Type:Patient Education Patient Instructions Indication:BMI 21.0-21.9, adult Start: 1 Instruction Type:Provider Instructions for Treatment How to Access Health Information Online using Patient Portal and 3rd [employer] Apps Indication:BMI 21.0-21.9, adult Start: 1 Instruction Type:Patient Education How to access health information online Indication:Herpes zoster Start: 6 Instruction Type:Patient Education How to access health information online - Detail Indication:Herpes zoster Start: 6 Instruction Type:Patient Education Patient Instructions Indication:Herpes zoster Start: 6 Instruction Type:Provider Instructions for Treatment How to access health information online Indication:Pneumonia Start: 6 Instruction Type:Patient Education How to access health information online - Detail Indication:Pneumonia Start: 6 Instruction Type:Patient Education Patient Instructions Indication:Pneumonia Start: 6 Instruction Type:Provider Instructions for Treatment DISCONTINUED - CHEST XRAY, PA & LATERAL ([id number]) Indication:Pneumonia Start: 6 Instruction Type:Patient Education How to access health information online Indication:Rib pain on right side Start: 6 Instruction Type:Patient Education How to access health information online - Detail Indication:Rib pain on right side Start: 6 Instruction Type:Patient Education Patient Instructions Indication:Rib pain on right side Start: 6 Instruction Type:Provider Instructions for Treatment How to access health information online Indication:Pneumonia Start: 6 Instruction Type:Patient Education How to access health information online - Detail Indication:Pneumonia Start: 6 Instruction Type:Patient Education Patient Instructions Indication:Pneumonia Start: 6 Instruction Type:Provider Instructions for Treatment How to access health information online Indication:Pneumonia Start:13-Feb-2015 Instruction Type:Patient Education How to access health information online - Detail Indication:Pneumonia Start:13-Feb-2015 Instruction Type:Patient Education Patient Instructions Indication:Pneumonia Start:13-Feb-2015 Instruction Type:Provider Instructions for Treatment Patient Instructions Indication:Stress reaction Start:17-May-2013 Instruction Type:Provider Instructions for Treatment Patient Instructions Indication:Stress reaction Start:12-Apr-2013 Instruction Type:Provider Instructions for Treatment Patient Instructions Indication:Abdominal pain, acute, right upper quadrant Start: 4 Instruction Type:Provider Instructions for Treatment Patient Instructions Indication:Irritable bowel syndrome Start: 3 Instruction Type:Provider Instructions for Treatment Patient Instructions Indication:Migraine Start:14-Sep-2012 Instruction Type:Provider Instructions for Treatment Patient Instructions Indication:Irritable bowel syndrome Start: 3 Instruction Type:Provider Instructions for Treatment Patient Instructions Indication:Abdominal pain, acute, right upper quadrant Start: 3 Instruction Type:Provider Instructions for Treatment [facility]; [facility] Work Phone: Family History No Family History Records FoundUnknown Family Member Name Dates Details First Degree Relatives Comments:Heart/Lung disease Status:Active Son 1 Comments:kidney ureter defec t Status:Active Unknown Family Member Name Dates Details First Degree Relatives Comments:Heart/Lung disease Status:Active Son 1 Comments:kidney ureter defec t Status:Active Unknown Family Member Name Dates Details First Degree Relatives Comments:Heart/Lung disease Status:Active Son 1 Comments:kidney ureter defec t Status:Active Relationship Condition Age at Onset Recorded Date/T jacob father Hypertension Unknown mother Hypertension Unknown Unknown Family Member Name Dates Details First Degree Relatives Comments:Heart/Lung disease Status:Active Son 1 Comments:kidney ureter defec t Status:Active Unknown Family Member Name Dates Details First Degree Relatives Comments:Heart/Lung disease Status:Active Son 1 Comments:kidney ureter defec t Status:Active Unknown Family Member Name Dates Details First Degree Relatives Comments:Heart/Lung disease Status:Active Son 1 Comments:kidney ureter defec t Status:Active 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 and Reason for Visit 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 SCREENING 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 Caleb Mathew MD Family Provider Active Dr. Brittany Dougherty DO Primary Care Provider Active Team Status: Inactive Member Role Status Dates Dr. Brittany Dougherty DO Primary Care Provider Active Sakina Osborn TELEPHONE DIAPHRAGM ASSEMBLER, TELEPHONE DIAPHRAGM ASSEMBLER-C Attending Provider, Referring Provider Active INFORMATION SOURCE (unrecogn ized section and content) DATE CREATED AUTHOR 12/17/2024 [facility] FOR RECORDS PERTAINING TO PATIENTS WHO ARE OR HAVE BEEN ENROLLED IN A CHEMICAL DEPENDENCY/SUBSTANCEABUSE PROGRAM, SOME INFORMATION MAY BE OMITTED. This clinical summary was aggregated from multiple sources. Caution should be exercised in using it in the provision of clinical care. This summary normalizes information from multiple sources, and as a consequence, information in this document may materially change the coding, format and clinical context of patient data. In addition, data may be omitted in some cases. CLINICAL DECISIONS SHOULD BE BASED ON THE PRIMARY CLINICAL RECORDS. [facility] [email or web address] [facility] provides no warranty or guarantee of the accuracy or completeness of information in this document.
== END | disposition home or self-care (01) ==
LOC: OPBI 08:15
PROVIDERS: PCP Internal Medicine; Referring Provider Nurse Practitioner Women's Health; Visit Provider Nurse Practitioner Women's Health
DX: Z12.31 Encounter for screening mammogram for malignant neoplasm of breast (principal)
CPT/HCPCS: 77063; 77067